=== PATIENT | female | born 2000 | race Caucasian/White ===

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

== ENCOUNTER 2022-11-11 08:40 | Emergency (ER) | payer SELFPAY ==
--- OUTSIDE RECORDS SUMMARY | 2022-11-11 08:49 | XMS REPORT | Continuity of Care Document ---
:2002 Author Organization [facility] t Address [address] [facility] [address] [place] [address] Support Name Relationship Address Phone NOT OBTAINED, None P [address] [id number] [address] [place] [address] NOT OBTAINED Unavailable Unavailable Unavailable NOHELIA MCCALL [address] [place] [id number] Nohelia Mccall Unavailable [address] [facility] [phone] [place] [id number] ignacio Duggan Unavailable [address] [facility] [phone] [place] [phone] Legal Guardian O Created by the Eligibility Depar tment Unavailable PLEASE DO NOT MODIFY Billing Purposes, Nohelia Barber Unavailable Unavailable Chris Vega O [address] Unavailabl e [place] [id number] Jeff Heck V [address] [facility] [address] [phone] [place] [address] Healthcare Proxy O Unavailable Unavailable Legal Guardian O PLEASE DO NOT MODIFY!!!!!!! Unav ailable DO NOT USE Billing Purposes, Legal Guardian O PLEASE DO NOT MODIFY Unavailable PLEASE DO NOT MODIFY Billing Purposes, None1 O Unavailable Unavailable Sylvia Goff O Unavailable Unavailabl e Cheryl Ren O Unavailable Unavailable Yvonne Cook O Unavailable Unavailable Primary Caregiver, None O Unavailable Unavaila ble Legal Guaridan O PLEASE DO NOT MODIFY Unavailable PLEASE DO NOT MODIFY Billing Purposes, Stephy Guillermo O Unavailable Unavailable Billing Purposes, Arnoldo( Primary O [address] Unavailable Caregiver), [place] [address] None O Unavailable Unavailable NEO Ponce O Unavailable Zenaida vailable Bisi Mariza O Unavailable Unavailable Care Team Providers Name Role Phone PHILLY MOBLEY Primary Care Physician Unavailable conor Attending Clinician Unavailable Mary Carmen Gonzales Attending Clinician Unavailable ISA LUNSFORD Attending Clinician Unavailable UNKNOWN, ATTENDING Attending Clinician Unavailable ISA WANG Attending Clinician Unavailable PHILLY MOBLEY Attending Clinician Unavailable Jeff Heck MD Attending Clinician [phone] Lab, Ang - Db Attending Clinician Unavailable Unknown, Attending Attending Clinician Unavailable Tk WILSONP, Gisela Harding Attending Clinician GISELA FREY Attending Clinician Unavailable Leandra WHCNPPhilly Attending Clinician [phone] SANDRA QUIÑONES Attending Clinician Unavailable Isis RUBY, Ese Attending Clinician Unavailable Yossi Rice Attending Clinician Haim VEGA, Orlando Attending Clinician YOSSI WILD Attending Clinician Unavailable Doctor Unassigned, Martorell Attending Clinician Unavailable Maddie Paniagua RN Attending Clinician Unavailable Only, [place] Db Test Attending Clinician Unavailable Isa Wang PA-C Attending Clinician Lab, Adc Fam Pob I Attending Clinician Unavailable Provider, Ang [facility] Attending Clinician Unavailable Luciana Lanier Attending Clinician LUCIANA HAMMOND Attending Clinician Unavailable Naseem VEGA, Radha Attending Clinician RADHA GUSMAN Attending Clinician Unavailable Gerald Cano Attending Clinician GERALD MARIE Attending Clinician Unavailable ROXANNE SAWYER Attending Clinician Unavailable Digna WILSONP, Roxanne Esquivel Attending Clinician SHOLA ARROYO Attending Clinician Unavailable ISA LUNSFORD Attending Clinician Unavailable Anastasia Rodriguez Attending Clinician [phone] Anastasia Rodirguez Attending Clinician [phone] Kristin Richey Attending Clinician Unavailable Jimenez Bahena Attending Clinician Unavailable Tasneem Martínez Attending Clinician Unavailable Joellen Andrade Attending Clinician Unavailable Linnea Espinoza Attending Clinician Unavailable Ese Casarez Attending Clinician Unavailable Adina Zamora Attending Clinician [phone] Kirti Cunha Attending Clinician Unavailable Kell Espinoza Attending Clinician Unavailable Cheryl Albright Attending Clinician Unavailable Joellen Carney Attending Clinician Unavailable Sunita Nicholson Attending Clinician Unavailable Radha Huitron Attending Clinician [phone] Tod Gusman Attending Clinician Unavailable Adina Schuler Attending Clinician Unavailable Vinh MARTINS-Annette Mcdonald Attending Clinician Anastasiia Álvarez Attending Clinician Unavailable Rahel Barrera Attending Clinician Unavailable Fatimah Walker Attending Clinician Unavailable Gladis Quijano Attending Clinician Unavailable Katarzyna May Attending Clinician Unavailable Emily Calwdell Attending Clinician Unavailable Jeff Heck MD Unavailable [phone] Payers Payer Name Policy Type Policy Number Effective Date Expiration Date S ource BCBS OF P [id number] [facility] MED[facility] [id number] 2017 [place] 00:00:00 BCBS OF [facility] [id number] 2021 OUT OF STATE 00:00:00 [facility] [id number] 2017 HEALTH CHOICE 00:00:00 [facility] [id number] 2014 [facility] HEALTH CHOICE 00:00:00 [facility] Problems Condition Condition Condition Status Onset Resolution Last Treating Co mments Source Name Details Category Date Date Treatment Clinician Date GERD GERD Disease Active [place] (gastroeso (gastroeso 1-13 He alth phageal phageal 00:00: reflux reflux 00 disease) disease) Over Over Disease Active [place] weight weight 02-20 Health 00:00: 00 Well woman Well woman Disease Active U T exam exam 02-20 Health 00:00: 00 High risk Condition Active 2020-09-15 Jeannette Heck medication 6-28 15:30:21 Shetal [place] management 00:00: Behavi o 00 [facility] Chronic Chronic Disease Active [place] tonsilliti tonsilliti 5-04 He alth s s 00:00: 00 PANIC Condition Active 2016-072020-09-15 Rangel Heck DISORDER 2-25 15:30:21 [place] 00:00: Behavio 00 ral Health ANXIETY Condition Active 2016-072020-09-15 Jatin Heck ple DISORDER, 09-11 15:30:21 Sheyao [place] UNSPECIFIE 00:00: Behavi o D 00 ral Health DEPRESSIVE Condition Active 2016-072020-09-15 Maria R, [place] DISORDER, 09-11 15:30:21 Jeff [place] MAJOR, 00:00: Behavio RECURRENT 00 ral EPISODE, Health MODERATE [id number] Uses Problem Active Co mmon control [facility] - [facility] [id number] Anxiety Problem Active Common disorder, Spirit unspecifie - [facility] [id number] 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, - [facility] [id number] Menorrhagi Problem Active Co mmon a with Spirit regular - [facility] [id number] Other Problem Active Commo n disturbanc Spirit es of - [facility] smell and [facility] Allergies, Adverse Reactions, Alerts Allergy Allergy Status Severity Reaction(s) Onset Inactive Treating Comm ents Source Name Type Date Date Clinician Pineappl Propensi Active Anaphylaxis U nivers e ty to 8-10 ity of adverse 00:00: [place] reaction 00 Medical s Branch PINEAPPL DRUG Active Anaphylaxis Uni vers E INGREDI 8-10 ity of 00:00: [place] [facility] Other Propensi Active Moderate Cold flu UT ty to 1-12 symptoms Health adverse 00:00: when reaction 00 bitten by s insect Pineappl Propensi Active Swelling [place] e ty to 1-12 Health adverse 00:00: reaction 00 s NO KNOWN Drug Active Univers ALLERGIE Class ity of S [facility] Pineappl Pineappl Active Unknown Commo n e e [facility] - [facility] Milk Milk Active Unknown [facility] Social History Social Habit Start Date Stop Date Quantity Comments Source History of [facility] - Tobacco Use [facility] Sex Assigned At [facility] fercho - [facility] social history 2022-08-05 2022-08-05 Single. Biomom is Leg acy Community E&M 11:21:41 11:21:41 not involvedNot Health homeless. City: [place]. State: [place]. -Primarily lived in [place]-Lives with dad, stepmom, 1 brother, 1 paternal half-brother, 1 paternal iawz-bmpdov-Mtw good rel't w/ siblings Employed. Attends [employer] Graduated 12th grade- Be Zuri hx of repeated grades Attending [facility] [employer] Sex at : Female. Sexual orientation: Bisexual. Gender identity: Female. Not in a relationship Hx of CPS: Pt was removed from biomom's care because of neglect. reading and writing, baking social history 2022-08-05 2022-08-05 reviewed today [facility] reviewed E&M 11:21:41 11:21:41 Health Exposure to 2022-06-19 2022-06-29 Not sure [facility]-CoV-2 00:00:00 08:45:00 [facility] (event) [place] Alcohol Comment 2022-05-25 2022-05-25 on occassion Univers ity of 00:00:00 00:00:00 [facility] Alcohol intake 2022-05-25 2022-05-25 Current drinker of Un iversity of 00:00:00 00:00:00 alcohol (finding) [facility] Tobacco use and 2022-05-09 2022-05-09 Smokeless tobacco Un iversity of exposure 00:00:00 00:00:[address] [facility] home/family 2021-05-19 2021-05-19 -Primarily lived in [facility] [employer] situation, 10:30:23 10:30:23 [place], [place]-Lives Health assessment with aunt and uncle. -Has good rel't w/ siblings time of call 2020-10-15 2020-10-15 10/15/2020 9:23 AM [facility] 09:23:06 09:23:06 Health tobacco use 2020-05-13 2020-05-13 [facility], 10:03:26 10:03:26 Health cigar, chew, pipe) History [facility] 2020-02-21 2020-02-21 1 University o f Alcohol Frequency 00:00:00 00:00:00 [facility] edical [place] History SDNC 2020-02-21 2020-02-21 99 University o f Alcohol Std 00:00:00 00:00:00 [place] Medical Drinks Branch History SDOH 2020-02-21 2020-02-21 1 University o f Alcohol Binge 00:00:00 00:00:00 [place] Medic al Branch albumin, serum 2019-09-25 2019-09-25 4.5 g/dL [facility] 09:38:00 09:38:00 Health social history - 2017-07-06 2017-07-06 Not in a [facility] ommunity sexual practice 10:52:10 10:52:10 relationship Hx of H ealth CPS: Pt was removed from biomom's care because of neglect. family support 2017-07-06 2017-07-06 Biomom is not Legacy 3Guppies 10:52:10 10:52:10 involved Health Smoking Status Start Date Stop Date Source Never smoked tobacco (finding) [facility] Health Unknown if ever smoked [place] [facility] Medications Ordered Filled Start Stop Current Ordering Indication Dosage Frequency Signature Comments Components Source Medication Medication Date Date Medication? Clinician (SIG) Name Name dexAMETHaso 2021-07- No [id number] 12mg Univers ne 08-30- ity of (DECADRON) 17:30: 16:34 [place] tablet 12 00 :00 Medical mg Branch dexAMETHaso 2021-07- No [id number] 12mg 12 mg, Univers ne 08-30- Oral, ity of (DECADRON) 17:30: 16:34 ONCE, 1 Mahendra as tablet 12 00 :00 dose, On Medica l mg [facility] 06/29/22 at 1130, Routine dexAMETHaso 2021-07- No [id number] 12mg Univers ne 08-30- ity of (DECADRON) 17:30: 16:34 [place] tablet 12 00 :00 Medical mg Branch dexAMETHaso 2021-07- No [id number] 12mg 12 mg, Univers ne 08-30-13 Oral, ity of (DECADRON) 17:30: 16:34 ONCE, 1 Mahendra as tablet 12 00 :00 dose, On Medica l mg Tue [place] 06/29/22 at 1130, Routine ibuprofen 2021-07- No [id number] 400mg U nivers (IBU) 08-30 12- ity of tablet 400 17:15: 16:35 [place] mg 00 :00 Medical Branch ibuprofen 2021-07- No [id number] 400mg 400 mg, Univers (IBU) 08-30 Oral, ity of tablet 400 17:15: 16:35 ONCE, 1 Mahendra as mg 00 :00 dose, On [facility] 06/29/22 at 1115, Routine ibuprofen 2021-07- No [id number] 400mg U nivers (IBU) 08-30- ity of tablet 400 17:15: 16:35 [place] mg 00 :00 [facility] ibuprofen 2021-07- No [id number] 400mg 400 mg, Univers (IBU) 08-30 Oral, ity of tablet 400 17:15: 16:35 ONCE, 1 [place] as mg 00 :00 dose, On [facility] 06/29/22 at 1115, Routine (ARIPIPRAZO 2021-07 Yes Shetal 1 Take 1 Ma ple LE) 15 MG 2-01 Heck tablet by Magy albrecht TABS 00:00: mouth once Behavio 00 a day [facility] levonorgest 2021-07 Yes [id number] 1{tbl} Take 1 Univers rel-ethinyl 1-08 tablet by ity of estradiol 00:[place] (SRONYX[place] 00 the Medical 0.1-20 morning. Branch mg-mcg per tablet levonorgest 2021-07 Yes [id number] 1{tbl} Take 1 Univers rel-ethinyl 1-08 tablet by ity of estradiol 00:00[place] (SRONYX[place] 00 the Medical 0.1-20 morning. Branch mg-mcg per tablet levonorgest 2021-07 Yes [id number] 1{tbl} Take 1 Univers rel-ethinyl 1-08 tablet by ity of estradiol 00:00: [place] (SRONYX[place] 00 the Medical 0.1-20 morning. Branch mg-mcg per tablet levonorgest 2021-07 Yes [id number] 1{tbl} Take 1 Univers rel-ethinyl 1-08 tablet by ity of estradiol 00:00: [place] (SRONYX[place] 00 the Medical 0.1-20 morning. Branch mg-mcg per tablet levonorgest 2021-07 Yes [id number] 1{tbl} Take 1 Univers rel-ethinyl 1-08 tablet by ity of estradiol 00:00: [place] (SRONYX[place] 00 the Medical 0.1-20 morning. Branch mg-mcg per tablet levonorgest 2021-07 Yes [id number] 1{tbl} Take 1 Univers rel-ethinyl 1-08 tablet by ity of estradiol 00:00: [place] (SRONYX) 00 the Medical 0.1-20 morning. Branch mg-mcg per tablet levonorgest 2021-07 Yes [id number] 1{tbl} Take 1 Univers rel-ethinyl 1-08 tablet by ity of estradiol 00:00: [place] (SRONYX) 00 the Medical 0.1-20 morning. Branch mg-mcg per tablet FLUoxetine 2021-07 Yes 30mg Take 30 mg U nivers 10 mg 0-23 by mouth. ity of capsule 15:07: [address] FLUoxetine 2021-07 Yes 30mg Take 30 mg U nivers 10 mg 0-23 by mouth. ity of capsule 15:07: [address] FLUoxetine 2021-07 Yes 30mg Take 30 mg U nivers 10 mg 0-23 by mouth. ity of capsule 15:07: [address] FLUoxetine 2021-07 Yes 30mg Take 30 mg U nivers 10 mg 0-23 by mouth. ity of capsule 15:07: [address] FLUoxetine 2021-07 Yes 30mg Take 30 mg U nivers 10 mg 0-23 by mouth. ity of capsule 15:07: [address] FLUoxetine 2021-07 Yes 30mg Take 30 mg U nivers 10 mg 0-23 by mouth. ity of capsule 15:07: [address] FLUoxetine 2021-07 Yes 30mg Take 30 mg U nivers 10 mg 0-23 by mouth. ity of capsule 15:07: [address] FLUoxetine 2021-07 Yes 30mg Take 30 mg U nivers 10 mg 0-23 by mouth. ity of capsule 15:07: [address] FLUoxetine 2021-07 Yes 30mg Take 30 mg U nivers 10 mg 0-23 by mouth. ity of capsule 15:07: [address] FLUoxetine 2021-07 Yes 30mg Take 30 mg U nivers 10 mg 0-23 by mouth. ity of capsule 15:07: [place] 14 Medical Branch bromphenira 2021-07- No [id number] 5mL Take 5 mL Univers mine-pseudo 0-23 10-29 by mouth 4 i ty of ephedrine-D 00:00: 04:59 (four) Mahendra as M 2- 00 :00 times Medical mg/5 mL daily as Branch syrup needed for Congestion /Allergies , Cold symptoms or Cough for up to 5 days. bromphenira 2021-07- No [id number] 5mL Take 5 mL Univers mine-pseudo 0-23 10-29 by mouth 4 i ty of ephedrine-D 00:00: 04:59 (four) Ma[place]dra as M 2- 00 :00 times Medical mg/5 mL daily as Branch syrup needed for Congestion /Allergies , Cold symptoms or Cough for up to 5 days. PROZAC Yes Shetal 1 Take 1 [place] (FLUOXETINE 03-17 Heck MD capsule by [place] HCL) 20 MG 00:00: mouth once B ehavio CAPS 00 a day ral Health (ARIPIPRAZO 2021- No Shetal 1 Take 1 M aple LE) 10 MG 806-17 Heck tablet by Moe morales TABS 00:00: 00:00 mouth once Behavi o 00 :00 a day ral Health WELLBUTRIN Yes Shetal 1 Take 1 Map le XL 8 Maria R BROOKS tablet by [place] (BUPROPION 00:00: mouth once B ehavio HCL) 150 MG 00 a day ral [id number] Health (HYDROXYZIN Yes Shetal 1 Take 1 Ma ple E PAMOATE) 8 Heck capsule by [place] 25 MG CAPS 00:00: mouth Behavi o 00 three ral times a Health day as needed for anxiety norethindro 2020- No Take by Un clare ne-e.estrad 8-04 24- mouth. ity o f iol-iron 18:35: 00:00 [place] (LO 51 :00 Medical LOESTRIN FE Branch ORAL) norethindro 2020- No Take by Un clare ne-e.estrad 8-10 08-10 mouth. ity o f iol-iron 18:35: 00:00 [place] (LO 51 :00 Medical LOESTRIN FE Branch ORAL) norethindro 2020-0 2020- No Take by Un clare ne-e.estrad 8-10 08-10 mouth. ity o f iol-iron 18:35: 00:00 [place] (LO 51 :00 Medical LOESTRIN FE Branch ORAL) norethindro 2020-0 Yes [id number] 1{tbl} Take 1 Univers ne-e.estrad 8-10 tablet by ity of ioL-iron 00:00: mouth [place] (LO 00 daily. Medical LOESTRIN Branch FE) 1 mg-10 mcg (24)/10 mcg (2) per tablet norethindro 2020-0 Yes [id number] 1{tbl} Take 1 Univers ne-e.estrad 8-10 tablet by ity of ioL-iron 00:00: mouth [place] (LO 00 daily. Medical LOESTRIN Branch FE) 1 mg-10 mcg (24)/10 mcg (2) per tablet norethindro 2020-0 Yes [id number] 1{tbl} Take 1 Univers ne-e.estrad 8-10 tablet by ity of ioL-iron 00:00: mouth [place] (LO 00 daily. Medical LOESTRIN Branch FE) 1 mg-10 mcg (24)/10 mcg (2) per tablet norethindro 2020-0 Yes [id number] 1{tbl} Take 1 Univers ne-e.estrad 8-10 tablet by ity of ioL-iron 00:00: mouth [place] (LO 00 daily. Medical LOESTRIN Branch FE) 1 mg-10 mcg (24)/10 mcg (2) per tablet norethindro 2020-0 Yes [id number] 1{tbl} Take 1 Univers ne-e.estrad 8-10 tablet by ity of ioL-iron 00:00: mouth [place] (LO 00 daily. Medical LOESTRIN Branch FE) 1 mg-10 mcg (24)/10 mcg (2) per tablet norethindro 2020-0 Yes [id number] 1{tbl} Take 1 Univers ne-e.estrad 8-10 tablet by ity of ioL-iron 00:00: mouth [place] (LO 00 daily. Medical LOESTRIN Branch FE) 1 mg-10 mcg (24)/10 mcg (2) per tablet norethindro 2021-0 Yes [id number] 1{tbl} Take 1 Univers ne-e.estrad 8-10 tablet by ity of ioL-iron 00:00: mouth [place] (LO 00 daily. [facility] LOESTRIN [facility]) 1 mg-10 mcg (24)/10 mcg (2) per tablet norethindro 2021-0 Yes [id number] 1{tbl} Take 1 Univers ne-e.estrad 8-10 tablet by ity of ioL-iron 00:00: mouth [place] (LO 00 daily. [facility] LOESTRIN [facility]) 1 mg-10 mcg (24)/10 mcg (2) per tablet norethindro 2021-0 Yes [id number] 1{tbl} Take 1 Univers ne-e.estrad 8-10 tablet by ity of ioL-iron 00:00: mouth [place] (LO 00 daily. [facility] LOESTRIN [facility]) 1 mg-10 mcg (24)/10 mcg (2) per tablet norethindro 2021-0 Yes [id number] 1{tbl} Take 1 Univers ne-e.estrad 8-10 tablet by ity of ioL-iron 00:00: mouth [place] (LO 00 daily. [facility] LOESTRIN [facility]) 1 mg-10 mcg (24)/10 mcg (2) per tablet norethindro 2021-0 Yes [id number] 1{tbl} Take 1 Univers ne-e.estrad 8-10 tablet by ity of ioL-iron 00:00: mouth [place] (LO 00 daily. [facility] LOESTRIN [facility]) 1 mg-10 mcg (24)/10 mcg (2) per tablet norethindro 2021-0 Yes [id number] 1{tbl} Take 1 Univers ne-e.estrad 8-10 tablet by ity of ioL-iron 00:00: mouth [place] (LO 00 daily. [facility] LOESTRIN [facility]) 1 mg-10 mcg (24)/10 mcg (2) per tablet norethindro 2021-0 Yes [id number] 1{tbl} Take 1 Univers ne-e.estrad 8-10 tablet by ity of ioL-iron 00:00: mouth [place] (LO 00 daily. [facility] LOESTRIN Branch FE) 1 mg-10 mcg (24)/10 mcg (2) per tablet norethindro 2021-0 Yes [id number] 1{tbl} Take 1 Univers ne-e.estrad 8-10 tablet by ity of ioL-iron 00:00: mouth [place] (LO 00 daily. Medical LOESTRIN Branch FE) 1 mg-10 mcg (24)/10 mcg (2) per tablet norethindro 2021-0 Yes [id number] 1{tbl} Take 1 Univers ne-e.estrad 8-10 tablet by ity of ioL-iron 00:00: mouth [place] (LO 00 daily. Medical LOESTRIN Branch FE) 1 mg-10 mcg (24)/10 mcg (2) per tablet norethindro 2021-0 Yes [id number] 1{tbl} Take 1 Univers ne-e.estrad 8-10 tablet by ity of ioL-iron 00:00: mouth [place] (LO 00 daily. Medical LOESTRIN Branch FE) 1 mg-10 mcg (24)/10 mcg (2) per tablet norethindro 1-0 Yes [id number] 1{tbl} Take 1 Univers ne-e.estrad 8-10 tablet by ity of ioL-iron 00:00: mouth [place] (LO 00 daily. Medical LOESTRIN Branch FE) 1 mg-10 mcg (24)/10 mcg (2) per tablet LO LOESTRIN 2020-0 Yes [id number] TAKE ONE Univers FE 1 mg-10 7-29 (1) ity of mcg (24)/10 00:00: TABLET(S) [place] mcg (2) per 00 BY MOUTH Medi araseli tablet ONCE A Branch DAY. LO LOESTRIN 2020-0 Yes [id number] TAKE ONE Univers FE 1 mg-10 7-29 (1) ity of mcg (24)/10 00:00: TABLET(S) [place] mcg (2) per 00 BY MOUTH Medi araseli tablet ONCE A Branch DAY. LO LOESTRIN 2020-0 Yes [id number] TAKE ONE Univers FE 1 mg-10 7-29 (1) ity of mcg (24)/10 00:00: TABLET(S) [place] mcg (2) per 00 BY MOUTH Medi araseli tablet ONCE A Branch DAY. LO LOESTRIN 2020- No [id number] TAKE ONE Univers FE 1 mg-10 7- 08-10 (1) ity of mcg (24)/10 00:00: 00:00 TABLET(S) [place] mcg (2) per 00 :00 BY MOUTH Medi araseli tablet ONCE A Branch DAY. LO LOESTRIN 2020- No [id number] TAKE ONE Univers FE 1 mg-10 - 08-10 (1) ity of mcg (24)/10 00:00: 00:00 TABLET(S) [place] mcg (2) per 00 :00 BY MOUTH Medi araseli tablet ONCE A Branch DAY. LO LOESTRIN 2020- No [id number] TAKE ONE Univers FE 1 mg-10 02-1210 (1) ity of mcg (24)/10 00:00: 00:00 TABLET(S) [place] mcg (2) per 00 :00 BY MOUTH Medi araseli tablet ONCE A Branch DAY. benzonatate 2020-0 Yes [id number] 100mg Take 1 Univers (TESSALON 7-07 capsule by ity of PERLES) 100 00:00: mouth 3 Mahendra as mg capsule 00 (three) Medica l times Branch daily. benzonatate 2020-0 Yes [id number] 100mg Take 1 Univers (TESSALON 7-07 capsule by ity of PERLES) 100 00:00: mouth 3 [place] as mg capsule 00 (three) Medica l times Branch daily. benzonatate 2020-0 Yes [id number] 100mg Take 1 Univers (TESSALON 7-07 capsule by ity of PERLES) 100 00:00: mouth 3 [place] as mg capsule 00 (three) Medica l times Branch daily. benzonatate 2020-0 Yes [id number] 100mg Take 1 Univers (TESSALON 7-07 capsule by ity of PERLES) 100 00:00: mouth 3 [place] as mg capsule 00 (three) Medica l times Branch daily. benzonatate 2020-0 Yes [id number] 100mg Take 1 Univers (TESSALON 7-07 capsule by ity of PERLES) 100 00:00: mouth 3 [place] as mg capsule 00 (three) Medica l times Branch daily. benzonatate 2020-0 Yes [id number] 100mg Take 1 Univers (TESSALON 7-07 capsule by itSilvia) 100 00:00: mouth 3 [place] as mg capsule 00 (three) Medica l times Branch daily. benzonatate 2020-2020- No [id number] 100mg Take 1 Univers (TESSALON 7-07 08-10 capsule by tiffanie CEFERINO) 100 00:00: 00:00 mouth 3 [place] mg capsule 00 :00 (three) Medica l times Branch daily. benzonatate 2020- No [id number] 100mg Take 1 Univers (TESSALON 7-07 08-10 capsule by itvashti CEFERINO) 100 00:00: 00:00 mouth 3 [place] mg capsule 00 :00 (three) Medica l times Branch daily. benzonatate 2020- No [id number] 100mg Take 1 Univers (TESSALON 7-07 08-10 capsule by itvashti CEFERINO) 100 00:00: 00:00 mouth 3 [place] mg capsule 00 :00 (three) Medica l times Branch daily. methylPREDN 2020-0 Yes [id number] 84mg Take 21 Univers ISolone 5-19 tablets by ity of (MEDROL, 00:00: mouth [place] BECKI,) 4 mg 00 SEE-INSTRU Med ical tablets CTIONS. Branch follow package directions methylPREDN 2020-0 Yes [id number] 84mg Take 21 Univers ISolone 5-19 tablets by ity of (MEDROL, 00:00: mouth [place] BECKI,) 4 mg 00 SEE-INSTRU Med ical tablets CTIONS. Branch follow package directions methylPREDN 2020-0 Yes [id number] 84mg Take 21 Univers ISolone 5-19 tablets by ity of (MEDROL, 00:00: mouth [place] BECKI,) 4 mg 00 SEE-INSTRU Med ical tablets CTIONS. Branch follow package directions methylPREDN 2020-0 Yes [id number] 84mg Take 21 Univers ISolone 5-19 tablets by ity of (MEDROL, 00:00: mouth [place] BECKI,) 4 mg 00 SEE-INSTRU Med ical tablets CTIONS. Branch follow package directions methylPREDN 1-0 Yes [id number] 84mg Take 21 Univers ISolone 5-19 tablets by ity of (MEDROL, 00:00: mouth [place] BECKI,) 4 mg 00 SEE-INSTRU Med ical tablets CTIONS. Branch follow package directions methylPREDN 2021-0 Yes [id number] 84mg Take 21 Univers ISolone 5-19 tablets by ity of (MEDROL, 00:00: mouth [place] BECKI,) 4 mg 00 SEE-INSTRU Med ical tablets CTIONS. Branch follow package directions methylPREDN 2021-0 Yes [id number] 84mg Take 21 Univers ISolone 5-19 tablets by ity of (MEDROL, 00:00: mouth [place] BECKI,) 4 mg 00 SEE-INSTRU Med ical tablets CTIONS. Branch follow package directions methylPREDN 2021-0 Yes [id number] 84mg Take 21 Univers ISolone 5-19 tablets by ity of (MEDROL, 00:00: mouth [place] BECKI,) 4 mg 00 SEE-INSTRU Med ical tablets CTIONS. Branch follow package directions methylPREDN 2021-0 Yes [id number] 84mg Take 21 [facility] ISolone 5-19 tablets by ity of (MEDROL, 00:00: mouth [place] BECKI,) 4 mg 00 SEE-INSTRU Med ical tablets CTIONS. Branch follow package directions methylPREDN 1-0 Yes [id number] 84mg Take 21 [facility] ISolone 5-19 tablets by ity of (MEDROL, 00:00: mouth [place] BECKI,) 4 mg 00 SEE-INSTRU Med ical tablets CTIONS. Branch follow package directions methylPREDN 2021-0 Yes [id number] 84mg Take 21 [facility] ISolone 5-19 tablets by ity of (MEDROL, 00:00: mouth [place] BECKI,) 4 mg 00 SEE-INSTRU Med ical tablets CTIONS. Branch follow package directions methylPREDN 2021-0 Yes [id number] 84mg Take 21 [facility] ISolone 5-19 tablets by ity of (MEDROL, 00:00: mouth [place] BECKI,) 4 mg 00 SEE-INSTRU Med ical tablets CTIONS. Branch follow package directions methylPREDN 2021-0 Yes [id number] 84mg Take 21 [facility] ISolone 5-19 tablets by ity of (MEDROL, 00:00: mouth [place] BECKI,) 4 mg 00 SEE-INSTRU Med ical tablets CTIONS. Branch follow package directions methylPREDN 2021-0 Yes [id number] 84mg Take 21 [facility] ISolone 5-19 tablets by ity of (MEDROL, 00:00: mouth [place] BECKI,) 4 mg 00 SEE-INSTRU Med ical tablets CTIONS. Branch follow package directions methylPREDN 2020-0 Yes [id number] 84mg Take 21 [facility] ISolone 5-19 tablets by ity of (MEDROL, 00:00: mouth [place] BECKI,) 4 mg 00 SEE-INSTRU Med ical tablets CTIONS. Branch follow package directions methylPREDN Yes [id number] 84mg Take 21 [facility] ISolone 5-19 tablets by ity of (MEDROL, 00:00: mouth [place] BECKI,) 4 mg 00 SEE-INSTRU Med ical tablets CTIONS. Branch follow package directions methylPREDN Yes [id number] 84mg Take 21 [facility] ISolone 5-19 tablets by ity of (MEDROL, 00:00: mouth [place] BECKI,) 4 mg 00 SEE-INSTRU Med ical tablets CTIONS. Branch follow package directions methylPREDN 2020- No [id number] 84mg Take 21 [facility] ISolone 5-19 08-10 tablets by ity o f (MEDROL, 00:00: 00:00 mouth [place] BECKI,) 4 mg 00 :00 SEE-INSTRU Med ical tablets CTIONS. Branch follow package directions methylPREDN 2020-0 2020- No [id number] 84mg Take 21 [facility] ISolone 5-19 08-10 tablets by ity o f (MEDROL, 00:00: 00:00 mouth [place] BECKI,) 4 mg 00 :00 SEE-INSTRU Med ical tablets CTIONS. Branch follow package directions methylPREDN 2020- No [id number] 84mg Take 21 [facility] ISolone 5-19 08-10 tablets by ity o f (MEDROL, 00:00: 00:00 mouth [place] BECKI,) 4 mg 00 :00 SEE-INSTRU Med ical tablets CTIONS. Branch follow package directions FLUoxetine Yes 30mg QD Take 30 mg U T (PROzac) 10 5-12 by mouth 1 He alth MG capsule 17:32: (one) time 27 each day. Biotin 10 Yes [id number] Take [place] MG capsule 5-12 10,000 mg Heal th 16:37: by mouth. 39 cyanocobala Yes 1000ug QD Take 1,000 [facility] min 5-12 mcg by Health (Vitamin 16:37: mouth 1 B-12) 1000 39 (one) time MCG tablet each day. fexofenadin Yes 180mg QD Take 180 U T e (Kyleigh) 5-12 mg by Health 180 MG 16:37: mouth 1 tablet 39 (one) time each day. Wheat 0 Yes Chew. [place] Dextrin 5-12 Health (Benefiber) 16:37: chewable 39 tablet ARIPiprazol Yes 10mg QD Take 10 mg [place] e (Abilify) 5-12 by mouth 1 He alth 10 MG 15:40: (one) time tablet 45 each day. NORETHINDRO Yes Take by [place] ACETATE 5-12 mouth. Health PO 15:40: 44 buPROPion Yes TAKE ONE Univ ers XL 300 mg 5-06 (1) ity of 24 hr 00:00: TABLET(S) [place] tablet 00 BY MOUTH Medical ONCE A Branch DAY. buPROPion Yes TAKE ONE Univ ers XL 300 mg 5-06 (1) ity of 24 hr 00:00: TABLET(S) [place] tablet 00 BY MOUTH Medical ONCE A Branch DAY. buPROPion Yes TAKE ONE Univ ers XL 300 mg 5-06 (1) ity of 24 hr 00:00: TABLET(S) [place] tablet 00 BY MOUTH Medical ONCE A Branch DAY. buPROPion Yes TAKE ONE Univ ers XL 300 mg 5-06 (1) ity of 24 hr 00:00: TABLET(S) [place] tablet 00 BY MOUTH Medical ONCE A Branch DAY. buPROPion Yes TAKE ONE Univ ers XL 300 mg 5-06 (1) ity of 24 hr 00:00: TABLET(S) [place] tablet 00 BY MOUTH Medical ONCE A Branch DAY. buPROPion Yes TAKE ONE Univ ers XL 300 mg 5-06 (1) ity of 24 hr 00:00: TABLET(S) [place] tablet 00 BY MOUTH Medical ONCE A Branch DAY. buPROPion 0 Yes TAKE ONE [facility] ers XL 300 mg 5-06 (1) ity of 24 hr 00:00: TABLET(S) [place] tablet 00 BY MOUTH Medical ONCE A Branch DAY. buPROPion Yes TAKE ONE Univ ers XL 300 mg 5-06 (1) ity of 24 hr 00:00: TABLET(S) [place] tablet 00 BY MOUTH Medical ONCE A Branch DAY. buPROPion 2020-0 Yes TAKE ONE Univ ers XL 300 mg 5-06 (1) ity of 24 hr 00:00: TABLET(S) [place] tablet 00 BY MOUTH Medical ONCE A Branch DAY. buPROPion 2020-0 Yes TAKE ONE Univ ers XL 300 mg 5-06 (1) ity of 24 hr 00:00: TABLET(S) [place] tablet 00 BY MOUTH Medical ONCE A Branch DAY. buPROPion 2020-0 Yes TAKE ONE Univ ers XL 300 mg 5-06 (1) ity of 24 hr 00:00: TABLET(S) [place] tablet 00 BY MOUTH Medical ONCE A Branch DAY. buPROPion 2020-0 Yes TAKE ONE Univ ers XL 300 mg 5-06 (1) ity of 24 hr 00:00: TABLET(S) [place] tablet 00 BY MOUTH Medical ONCE A Branch DAY. buPROPion 2020-0 Yes TAKE ONE Univ ers XL 300 mg 5-06 (1) ity of 24 hr 00:00: TABLET(S) [place] tablet 00 BY MOUTH Medical ONCE A Branch DAY. buPROPion 2020-0 Yes TAKE ONE Univ ers XL 300 mg 5-06 (1) ity of 24 hr 00:00: TABLET(S) [place] tablet 00 BY MOUTH Medical ONCE A Branch DAY. buPROPion 2020-0 Yes TAKE ONE [facility] ers XL 300 mg 5-06 (1) ity of 24 hr 00:00: TABLET(S) [place] tablet 00 BY MOUTH Medical ONCE A Branch DAY. buPROPion 2020-0 Yes TAKE ONE [facility] ers XL 300 mg 5-06 (1) ity of 24 hr 00:00: TABLET(S) [place] tablet 00 BY MOUTH Medical ONCE A Branch DAY. buPROPion 2020-0 Yes TAKE ONE [facility] ers XL 300 mg 5-06 (1) ity of 24 hr 00:00: TABLET(S) [place] tablet 00 BY MOUTH Medical ONCE A Branch DAY. buPROPion 2020-0 Yes TAKE ONE [facility] ers XL 300 mg 5-06 (1) ity of 24 hr 00:00: TABLET(S) [place] tablet 00 BY MOUTH Medical ONCE A Branch DAY. buPROPion 2020-0 Yes TAKE ONE Univ ers XL 300 mg 5-06 (1) ity of 24 hr 00:00: TABLET(S) [place] tablet 00 BY MOUTH Medical ONCE A Branch DAY. buPROPion Yes TAKE ONE Univ ers XL 300 mg 5-06 (1) ity of 24 hr 00:00: TABLET(S) [place] tablet 00 BY MOUTH Medical ONCE A Branch DAY. buPROPion Yes TAKE ONE [facility] ers XL 300 mg 5-06 (1) ity of 24 hr 00:00: TABLET(S) [place] tablet 00 BY MOUTH Medical ONCE A Branch DAY. buPROPion Yes TAKE ONE [facility] ers XL 300 mg 5-06 (1) ity of 24 hr 00:00: TABLET(S) [place] tablet 00 BY MOUTH Medical ONCE A Branch DAY. buPROPion Yes TAKE ONE Univ ers XL 300 mg 5-06 (1) ity of 24 hr 00:00: TABLET(S) [place] tablet 00 BY MOUTH Medical ONCE A Branch DAY. Diclofenac Diclofenac No 1{table BID Diclofenac Potassium Potassium 11-20 t_with_ Potassium 50 MG 50 MG 00:00: food_or 50 MG 00 _milk} Diclofenac Diclofenac No 1{table BID Diclofenac Potassium Potassium -06 t_with_ Potassium 50 MG 50 MG 00:00: food_or 50 MG 00 _milk} Diclofenac Diclofenac No 1{table BID Diclofenac Potassium Potassium 5-06 t_with_ Potassium 50 MG 50 MG 00:00: food_or 50 MG 00 _milk} ARIPiprazol Yes TAKE ONE [facility] e (Abilify) 11-20 (1) Health 15 MG 00:00: TABLET(S) tablet 00 BY MOUTH ONCE A DAY. buPROPion Yes TAKE ONE [facility] XL 11-20 (1) Health (Wellbutrin 00:00: TABLET(S) XL) 300 MG 00 BY MOUTH 24 hr ONCE A tablet DAY. diclofenac Yes TAKE ONE UT (Cataflam) 06 (1) Health 50 MG 00:00: TABLET(S) tablet 00 BY MOUTH TWICE A DAY WITH FOOD OR MILK. FLUoxetine 2020- No TAKE ONE [facility] (PROzac) 10 11-20 05-12 (1) Health MG capsule 00:00: 00:00 CAPSULE(S) 00 :00 BY MOUTH ONCE A DAY. FLUoxetine 2020- No TAKE THREE UT (PROzac) 20 5-06 05-12 (3) Health MG capsule 00:00: 00:00 TABLET(S) 00 :00 BY MOUTH DAILY. omeprazole Yes TAKE ONE UT (PriLOSEC) 4-26 (1) Health [address] 00:00: CAPSULE(S) capsule 00 BY MOUTH ONCE A DAY. Lo Loestrin Yes TAKE ONE UT Fe 1 MG-10 4-22 (1) Health MCG / 10 00:00: TABLET(S) MCG tablet 00 BY MOUTH ONCE A DAY. sucralfate Yes TAKE TEN UT (Carafate) 4-13 (10) MLS Healt h 1 GM/10ML 00:00: BY MOUTH suspension 00 EVERY 12 HOURS. hydrOXYzine Yes TAKE ONE UT pamoate 2-04 (1) Health (Vistaril) 00:00: CAPSULE(S) 25 MG 00 BY MOUTH capsule AT BEDTIME. (HYDROXYZIN 2020- No [place] 1 Take 1 M aple E PAMOATE) 2 08-11 Heck capsule by Magy dgpennie 25 MG CAPS 00:00: 00:00 mouth Behav io 00 :00 every ral night Health hydrOXYzine Yes TAKE ONE UT HCl 1-29 (1) Health (Atarax) 10 00:00: TABLET(S) MG tablet 00 BY MOUTH TWICE A DAY NEEDED FOR ANXIETY. (ARIPIPRAZO 2019-07 No [place] 1 Take 1 M aple LE) 15 MG 08-10 [place] tablet by [place] e TABS 00:00: 00:00 mouth once Behavi o 00 :00 a day ral Health WELLBUTRIN 2019-07- No [place] 1 Take 1 Ma ple XL 08-08 Heck tablet by [place] (BUPROPION 00:00: 00:00 mouth once Behavio HCL) 300 MG 00 :00 a day ral [id number] Health PROZAC 2019-07 No [place] 1 1xD 1 By Mouth Ma ple (FLUOXETINE 06-08 Heck MD daily Rid ge HCL) 10 MG 00:00: 00:00 Behavi o CAPS 00 :00 ral [facility] Pantoprazol Pantoprazol 2020-0 Yes Mary Carmen 1 tablet Common e Sodium e Sodium 03-17 [place] [facility] 00:00: - [facility] 00 [facility] norethindro 2020-0 Yes Take by Uni vers ne-e.estrad 8- mouth. ity of iol-iron 20:45: [place] (LO 28 Medical LOESTRIN FE Branch ORAL) norethindro 2020-0 Yes Take by Uni vers ne-e.estrad 8- mouth. ity of iol-iron 20:45: [place] (LO 28 Medical LOESTRIN FE Branch ORAL) norethindro 2020-0 Yes Take by Uni vers ne-e.estrad 8- mouth. ity of iol-iron 20:45: [place] (LO 28 Medical LOESTRIN FE Branch ORAL) norethindro 2020-0 Yes Take by Uni vers ne-e.estrad 8- mouth. ity of iol-iron 20:45: [place] (LO 28 Medical LOESTRIN FE Branch ORAL) norethindro 2020-0 Yes Take by Uni vers ne-e.estrad 8- mouth. ity of iol-iron 20:45: [place] (LO 28 Medical LOESTRIN FE Branch ORAL) norethindro 2020-0 Yes Take by Uni vers ne-e.estrad 8- mouth. ity of iol-iron 20:45: [place] (LO 28 Medical LOESTRIN FE Branch ORAL) norethindro 2020-0 Yes Take by Uni vers ne-e.estrad 02-20 mouth. ity of iol-iron 20:45: [place] (LO 28 Medical LOESTRIN FE Branch ORAL) norethindro 2020-0 Yes Take by Uni vers ne-e.estrad 8- mouth. ity of iol-iron 20:45: [place] (LO 28 Medical LOESTRIN FE Branch ORAL) norethindro 2020-0 Yes Take by Uni vers ne-e.estrad 8- mouth. ity of iol-iron 20:45: [place] (LO 28 Medical LOESTRIN FE Branch ORAL) norethindro 2020-0 Yes Take by Uni vers ne-e.estrad 8 mouth. ity of iol-iron 20:45: [place] (LO 28 Medical LOESTRIN FE Branch ORAL) norethindro 2020-0 Yes Take by Uni vers ne-e.estrad 8- mouth. ity of iol-iron 20:45: [place] (LO 28 Medical LOESTRIN FE Branch ORAL) norethindro 2020-0 Yes Take by Uni vers ne-e.estrad 02-20 mouth. ity of iol-iron 20:45: [place] (LO 28 Medical LOESTRIN FE Branch ORAL) norethindro 2020-0 Yes Take by Uni vers ne-e.estrad 8 mouth. ity of iol-iron 20:45: [place] (LO 28 Medical LOESTRIN FE Branch ORAL) norethindro 2020-0 Yes Take by Uni vers ne-e.estrad 02-20 mouth. ity of iol-iron 20:45: [place] (LO 28 Medical LOESTRIN FE Branch ORAL) norethindro 2020-0 Yes Take by Uni vers ne-e.estrad 02-20 mouth. ity of iol-iron 20:45: [place] (LO 28 Medical LOESTRIN FE Branch ORAL) norethindro 2020-0 Yes Take by Uni vers ne-e.estrad 02-20 mouth. ity of iol-iron 20:45: [place] (LO 28 Medical LOESTRIN FE Branch ORAL) norethindro 2020-0 Yes Take by Uni vers ne-e.estrad 02-20 mouth. ity of iol-iron 20:45: [place] (LO 28 Medical LOESTRIN FE Branch ORAL) norethindro 2020-0 Yes Take by Uni vers ne-e.estrad 02-20 mouth. ity of iol-iron 20:45: [place] (LO 28 Medical LOESTRIN FE Branch ORAL) norethindro 2020-0 Yes Take by Uni vers ne-e.estrad 02-20 mouth. ity of iol-iron 20:45: [place] (LO 28 Medical LOESTRIN FE Branch ORAL) norethindro 2020-0 Yes Take by Uni vers ne-e.estrad 02-20 mouth. ity of iol-iron 20:45: [place] (LO 28 Medical LOESTRIN FE Branch ORAL) norethindro 2020-0 Yes Take by Uni vers ne-e.estrad 02-20 mouth. ity of iol-iron 20:45: [place] (LO 28 Medical LOESTRIN FE Branch ORAL) norethindro 2020-0 Yes Take by Uni vers ne-e.estrad 02-20 mouth. ity of iol-iron 20:45: [place] (LO 28 Medical LOESTRIN FE Branch ORAL) norethindro 2020-0 Yes Take by Uni vers ne-e.estrad 8- mouth. ity of iol-iron 20:45: [place] (LO 28 Medical LOESTRIN FE Branch ORAL) norethindro 2020-0 2020- No Take by Un clare ne-e.estrad 02-20 08- mouth. ity o f iol-iron 20:44: 00:00 [place] (LO 42 :00 Medical LOESTRIN FE Branch ORAL) norethindro 2020-0 2020- No Take by Un clare ne-e.estrad 02-20- mouth. ity o f iol-iron 20:44: 00:00 [place] (LO 42 :00 Medical LOESTRIN FE Branch ORAL) norethindro 2020-0 2020- No Take by Un clare ne-e.estrad 02-20- mouth. ity o f iol-iron 20:44: 00:00 [place] (LO 42 :00 Medical LOESTRIN FE Branch ORAL) norethindro 2020-0 2020- No Take by Un lcare ne-e.estrad 02-20- mouth. ity o f iol-iron 20:44: 00:00 [place] (LO 42 :00 Medical LOESTRIN FE Branch ORAL) norethindro 2020-0 Yes [id number] 1{tbl} Take 1 Univers ne-e.estrad 8-06 tablet by ity of iol-iron 00:00: mouth [place] (LO 00 daily. Medical LOESTRIN Branch FE) 1 mg-10 mcg (24)/10 mcg (2) per tablet norethindro 2020-0 Yes [id number] 1{tbl} Take 1 Univers ne-e.estrad 8-06 tablet by ity of iol-iron 00:00: mouth [place] (LO 00 daily. Medical LOESTRIN Branch FE) 1 mg-10 mcg (24)/10 mcg (2) per tablet norethindro 2020-0 Yes [id number] 1{tbl} Take 1 Univers ne-e.estrad 8-06 tablet by ity of iol-iron 00:00: mouth [place] (LO 00 daily. Medical LOESTRIN Branch FE) 1 mg-10 mcg (24)/10 mcg (2) per tablet norethindro 2020-0 Yes [id number] 1{tbl} Take 1 Univers ne-e.estrad 8-06 tablet by ity of iol-iron 00:00: mouth [place] (LO 00 daily. Medical LOESTRIN Branch FE) 1 mg-10 mcg (24)/10 mcg (2) per tablet norethindro 2020-0 Yes [id number] 1{tbl} Take 1 Univers ne-e.estrad 8-06 tablet by ity of iol-iron 00:00: mouth [place] (LO 00 daily. Medical LOESTRIN Branch FE) 1 mg-10 mcg (24)/10 mcg (2) per tablet norethindro 2020-0 Yes [id number] 1{tbl} Take 1 Univers ne-e.estrad 8-06 tablet by ity of iol-iron 00:00: mouth [place] (LO 00 daily. Medical LOESTRIN Branch FE) 1 mg-10 mcg (24)/10 mcg (2) per tablet norethindro 2020-0 Yes [id number] 1{tbl} Take 1 Univers ne-e.estrad 8-06 tablet by ity of iol-iron 00:00: mouth [place] (LO 00 daily. Medical LOESTRIN Branch FE) 1 mg-10 mcg (24)/10 mcg (2) per tablet norethindro 2020-0 Yes [id number] 1{tbl} Take 1 Univers ne-e.estrad 8-06 tablet by ity of iol-iron 00:00: mouth [place] (LO 00 daily. Medical LOESTRIN Branch FE) 1 mg-10 mcg (24)/10 mcg (2) per tablet norethindro 2020-0 Yes [id number] 1{tbl} Take 1 Univers ne-e.estrad 8-06 tablet by ity of iol-iron 00:00: mouth [place] (LO 00 daily. Medical LOESTRIN Branch FE) 1 mg-10 mcg (24)/10 mcg (2) per tablet norethindro 2020-0 Yes [id number] 1{tbl} Take 1 Univers ne-e.estrad 8-06 tablet by ity of iol-iron 00:00: mouth [place] (LO 00 daily. Medical LOESTRIN Branch FE) 1 mg-10 mcg (24)/10 mcg (2) per tablet norethindro 2020-0 Yes [id number] 1{tbl} Take 1 Univers ne-e.estrad 8-06 tablet by ity of iol-iron 00:00: mouth [place] (LO 00 daily. Medical LOESTRIN Branch FE) 1 mg-10 mcg (24)/10 mcg (2) per tablet norethindro 2020-0 Yes [id number] 1{tbl} Take 1 Univers ne-e.estrad 8-06 tablet by ity of iol-iron 00:00: mouth [place] (LO 00 daily. Medical LOESTRIN Branch FE) 1 mg-10 mcg (24)/10 mcg (2) per tablet norethindro 2020-0 Yes [id number] 1{tbl} Take 1 Univers ne-e.estrad 8-06 tablet by ity of iol-iron 00:00: mouth [place] (LO 00 daily. Medical LOESTRIN Branch FE) 1 mg-10 mcg (24)/10 mcg (2) per tablet norethindro 2020-0 Yes [id number] 1{tbl} Take 1 Univers ne-e.estrad 8-06 tablet by ity of iol-iron 00:00: mouth [place] (LO 00 daily. Medical LOESTRIN Branch FE) 1 mg-10 mcg (24)/10 mcg (2) per tablet norethindro 2020-0 Yes [id number] 1{tbl} Take 1 Univers ne-e.estrad 8-06 tablet by ity of iol-iron 00:00: mouth [place] (LO 00 daily. Medical LOESTRIN Branch FE) 1 mg-10 mcg (24)/10 mcg (2) per tablet norethindro 2020-0 Yes [id number] 1{tbl} Take 1 Univers ne-e.estrad 8-06 tablet by ity of iol-iron 00:00: mouth [place] (LO 00 daily. Medical LOESTRIN Branch FE) 1 mg-10 mcg (24)/10 mcg (2) per tablet norethindro 2020-0 Yes [id number] 1{tbl} Take 1 Univers ne-e.estrad 8-06 tablet by ity of iol-iron 00:00: mouth [place] (LO 00 daily. Medical LOESTRIN Branch FE) 1 mg-10 mcg (24)/10 mcg (2) per tablet norethindro 2020-0 Yes [id number] 1{tbl} Take 1 Univers ne-e.estrad 8-06 tablet by ity of iol-iron 00:00: mouth [place] (LO 00 daily. Medical LOESTRIN [facility]) 1 mg-10 mcg (24)/10 mcg (2) per tablet norethindro 2020-0 Yes [id number] 1{tbl} Take 1 Univers ne-e.estrad 8-06 tablet by ity of iol-iron 00:00: mouth [place] (LO 00 daily. [facility] LOESTRIN [facility]) 1 mg-10 mcg (24)/10 mcg (2) per tablet norethindro 2020-0 Yes [id number] 1{tbl} Take 1 Univers ne-e.estrad 8-06 tablet by ity of iol-iron 00:00: mouth [place] (LO 00 daily. [facility] LOESTRIN [facility]) 1 mg-10 mcg (24)/10 mcg (2) per tablet norethindro 2020-0 2020- No [id number] 1{tbl} Take 1 Univers ne-e.estrad 8-06 -29 tablet by it y of iol-iron 00:00: 00:00 mouth [place] (LO 00 :00 daily. [facility] LOESTRIN [facility]) 1 mg-10 mcg (24)/10 mcg (2) per tablet FLUoxetine 2020-0 Yes TAKE THREE U nivers 20 mg 8-03 (3) ity of capsule 00:00: CAPSULE(S) [place] 00 BY MOUTH Medical DAILY. Branch FLUoxetine 2020-0 Yes TAKE TWO Uni vers 40 mg 8-03 (2) ity of capsule 00:00: CAPSULE(S) [place] 00 BY MOUTH Medical ONCE A Branch DAY. FLUoxetine 2020-0 Yes TAKE THREE U nivers 20 mg 8-03 (3) ity of capsule 00:00: CAPSULE(S) [place] 00 BY MOUTH Medical DAILY. Branch FLUoxetine 2020-0 Yes TAKE TWO Uni vers 40 mg 8-03 (2) ity of capsule 00:00: CAPSULE(S) [place] 00 BY MOUTH Medical ONCE A Branch DAY. FLUoxetine 2020-0 Yes TAKE THREE U nivers 20 mg 8-03 (3) ity of capsule 00:00: CAPSULE(S) [place] 00 BY MOUTH Medical DAILY. Branch FLUoxetine 2020-0 Yes TAKE TWO Uni vers 40 mg 8-03 (2) ity of capsule 00:00: CAPSULE(S) [place] 00 BY MOUTH Medical ONCE A Branch DAY. FLUoxetine 2020-0 Yes TAKE THREE U nivers 20 mg 8-03 (3) ity of capsule 00:00: CAPSULE(S) [place] 00 BY MOUTH Medical DAILY. Branch FLUoxetine 2020-0 Yes TAKE TWO Uni vers 40 mg 8-03 (2) ity of capsule 00:00: CAPSULE(S) [place] 00 BY MOUTH Medical ONCE A Branch DAY. FLUoxetine 2020-0 Yes TAKE THREE U nivers 20 mg 8-03 (3) ity of capsule 00:00: CAPSULE(S) [place] 00 BY MOUTH Medical DAILY. Branch FLUoxetine 2020-0 Yes TAKE TWO Uni vers 40 mg 8-03 (2) ity of capsule 00:00: CAPSULE(S) [place] 00 BY MOUTH Medical ONCE A Branch DAY. FLUoxetine 2020-0 Yes TAKE THREE U nivers 20 mg 8-03 (3) ity of capsule 00:00: CAPSULE(S) [place] 00 BY MOUTH Medical DAILY. Branch FLUoxetine 2020-0 Yes TAKE TWO Uni vers 40 mg 8-03 (2) ity of capsule 00:00: CAPSULE(S) [place] 00 BY MOUTH Medical ONCE A Branch DAY. FLUoxetine 2020-0 Yes TAKE THREE U nivers 20 mg 8-03 (3) ity of capsule 00:00: CAPSULE(S) [place] 00 BY MOUTH Medical DAILY. Branch FLUoxetine 2020-0 Yes TAKE TWO Uni vers 40 mg 8-03 (2) ity of capsule 00:00: CAPSULE(S) [place] 00 BY MOUTH Medical ONCE A Branch DAY. FLUoxetine 2020-0 Yes TAKE THREE U nivers 20 mg 8-03 (3) ity of capsule 00:00: CAPSULE(S) [place] 00 BY MOUTH Medical DAILY. Branch FLUoxetine 2020-0 Yes 30mg 30 mg. Unive rs 40 mg 8-03 Eventually ity of capsule 00:00: will come [place] 00 off of it. Medical Branch FLUoxetine 2020-0 Yes TAKE THREE U nivers 20 mg 8-03 (3) ity of capsule 00:00: CAPSULE(S) [place] 00 BY MOUTH Medical DAILY. Branch FLUoxetine 2020-0 Yes 30mg 30 mg. Unive rs 40 mg 8-03 Eventually ity of capsule 00:00: will come [place] 00 off of it. Medical Branch FLUoxetine 2020-0 Yes TAKE THREE U nivers 20 mg 8-03 (3) ity of capsule 00:00: CAPSULE(S) [place] 00 BY MOUTH Medical DAILY. Branch FLUoxetine 2020-0 Yes 30mg 30 mg. Unive rs 40 mg 8-03 Eventually ity of capsule 00:00: will come [place] 00 off of it. Medical Branch FLUoxetine 2020-0 Yes TAKE THREE U nivers 20 mg 8-03 (3) ity of capsule 00:00: CAPSULE(S) [place] 00 BY MOUTH Medical DAILY. Branch FLUoxetine 2020-0 Yes 30mg 30 mg. Unive rs 40 mg 8-03 Eventually ity of capsule 00:00: will come [place] 00 off of it. Medical Branch FLUoxetine 2020-0 Yes TAKE THREE U nivers 20 mg 8-03 (3) ity of capsule 00:00: CAPSULE(S) [place] 00 BY MOUTH Medical DAILY. Branch FLUoxetine 2020-0 Yes 30mg 30 mg. Unive rs 40 mg 8-03 Eventually ity of capsule 00:00: will come [place] 00 off of it. Medical Branch FLUoxetine 2020-0 Yes TAKE THREE U nivers 20 mg 8-03 (3) ity of capsule 00:00: CAPSULE(S) [place] 00 BY MOUTH Medical DAILY. Branch FLUoxetine 2020-0 Yes 30mg 30 mg. Unive rs 40 mg 8-03 Eventually ity of capsule 00:00: will come [place] 00 off of it. Medical Branch FLUoxetine 2020-0 Yes TAKE THREE U nivers 20 mg 8-03 (3) ity of capsule 00:00: CAPSULE(S) [place] 00 BY MOUTH Medical DAILY. Branch FLUoxetine 2020-0 Yes 30mg 30 mg. Unive rs 40 mg 8-03 Eventually ity of capsule 00:00: will come [place] 00 off of it. Medical Branch FLUoxetine 2020-0 Yes TAKE THREE U nivers 20 mg 8-03 (3) ity of capsule 00:00: CAPSULE(S) [place] 00 BY MOUTH Medical DAILY. Branch FLUoxetine 2020-0 Yes 30mg 30 mg. Unive rs 40 mg 8-03 Eventually ity of capsule 00:00: will come [place] 00 off of it. Medical Branch FLUoxetine 2020-0 Yes TAKE THREE U nivers 20 mg 8-03 (3) ity of capsule 00:00: CAPSULE(S) [place] 00 BY MOUTH Medical DAILY. Branch FLUoxetine 2020-0 Yes 30mg 30 mg. Unive rs 40 mg 8-03 Eventually ity of capsule 00:00: will come [place] 00 off of it. Medical Branch FLUoxetine 2020-0 Yes TAKE THREE U nivers 20 mg 8-03 (3) ity of capsule 00:00: CAPSULE(S) [place] 00 BY MOUTH Medical DAILY. Branch FLUoxetine 2020-0 Yes 30mg 30 mg. Unive rs 40 mg 8-03 Eventually ity of capsule 00:00: will come [place] 00 off of it. Medical Branch FLUoxetine 2020-0 Yes TAKE THREE U nivers 20 mg 8-03 (3) ity of capsule 00:00: CAPSULE(S) [place] 00 BY MOUTH Medical DAILY. Branch FLUoxetine 2020-0 Yes 30mg 30 mg. Unive rs 40 mg 8-03 Eventually ity of capsule 00:00: will come [place] 00 off of it. Medical Branch FLUoxetine 2020-0 Yes TAKE THREE U nivers 20 mg 8-03 (3) ity of capsule 00:00: CAPSULE(S) [place] 00 BY MOUTH Medical DAILY. Branch FLUoxetine 2020-0 Yes 30mg 30 mg. Unive rs 40 mg 8-03 Eventually ity of capsule 00:00: will come [place] 00 off of it. Medical Branch FLUoxetine 2020-0 Yes TAKE THREE U nivers 20 mg 8-03 (3) ity of capsule 00:00: CAPSULE(S) [place] 00 BY MOUTH Medical DAILY. Branch FLUoxetine 2020-0 Yes 30mg 30 mg. Unive rs 40 mg 8-03 Eventually ity of capsule 00:00: will come [place] 00 off of it. Medical Branch FLUoxetine 2020-0 Yes TAKE THREE U nivers 20 mg 8-03 (3) ity of capsule 00:00: CAPSULE(S) [place] 00 BY MOUTH Medical DAILY. Branch FLUoxetine 2020-0 Yes TAKE TWO Uni vers 40 mg 8-03 (2) ity of capsule 00:00: CAPSULE(S) [place] 00 BY MOUTH Medical ONCE A Branch DAY. FLUoxetine 2020-0 Yes TAKE THREE U nivers 20 mg 8-03 (3) ity of capsule 00:00: CAPSULE(S) [place] 00 BY MOUTH Medical DAILY. Branch FLUoxetine 2020-0 Yes TAKE TWO Uni vers 40 mg 8-03 (2) ity of capsule 00:00: CAPSULE(S) [place] 00 BY MOUTH Medical ONCE A Branch DAY. FLUoxetine Yes TAKE THREE U nivers 20 mg 8-03 (3) ity of capsule 00:00: CAPSULE(S) [place] BY MOUTH [facility] DAILY. [facility] FLUoxetine Yes TAKE TWO [facility] 40 mg 8-03 (2) ity of capsule 00:00: [place](S[place] 00 BY MOUTH Medical ONCE A Branch DAY. FLUoxetine 2020- No TAKE THREE [facility] 20 mg 8- 08-10 (3) ity of capsule 00:00: 00:00 CAPSULE(S) [place] 00 :00 BY MOUTH Medical DAILY. Branch FLUoxetine 2020- No 30mg 30 mg. [facility] 40 mg 8- 08-10 Eventually ity of capsule 00:00: [place] come [place] [facility]. [facility] FLUoxetine 2020- No TAKE THREE [facility] 20 mg 8- 08-10 (3) ity of capsule 00:00: 00:00 CAPSULE(S) [place] 00 :00 BY MOUTH Medical DAILY. [facility] FLUoxetine 2020- No 30mg 30 mg. [facility] 40 mg 8- 08-10 Eventually [facility]y of capsule 00:00: 00:[place] [facility]. [facility] FLUoxetine 2020- No TAKE THREE [facility] 20 mg 8- 08-10 (3) ity of capsule 00:00: 00:00 CAPSULE(S) [place] 00 :00 BY MOUTH Medical DAILY. [facility] FLUoxetine 2020- No 30mg 30 mg. [facility] 40 mg - 08-10 Eventually [facility]y of capsule 00:00: 00:[place] [facility] it. [facility] ARIPiprazol Yes TAKE ONE [facility] 15 mg 7-28 (1) ity of tablet 00:00: TABLET(S) BY MOUTH Medical ONCE A Branch DAY. ARIPiprazol Yes TAKE ONE [facility] 15 mg 7-28 (1) ity of tablet 00:00: TABLET(S) BY MOUTH Medical ONCE A Branch DAY. ARIPiprazol 2020-0 Yes TAKE ONE [facility] 15 mg 7-28 (1) ity of tablet 00:00: TABLET(S) [place] 00 BY MOUTH Medical ONCE A Branch DAY. ARIPiprazol 2020-0 Yes TAKE ONE [facility] 15 mg 7-28 (1) ity of tablet 00:00: TABLET(S) [place] 00 BY MOUTH Medical ONCE A Branch DAY. ARIPiprazol 2020-0 Yes TAKE ONE [facility] 15 mg 7-28 (1) ity of tablet 00:00: TABLET(S) [place] 00 BY MOUTH Medical ONCE A Branch DAY. ARIPiprazol 2020-0 Yes TAKE ONE [facility] 15 mg 7-28 (1) ity of tablet 00:00: TABLET(S) [place] 00 BY MOUTH Medical ONCE A Branch DAY. ARIPiprazol 2020-0 Yes TAKE ONE [facility] 15 mg 7-28 (1) ity of tablet 00:00: TABLET(S) [place] 00 BY MOUTH Medical ONCE A Branch DAY. ARIPiprazol 2020-0 Yes TAKE ONE [facility] 15 mg 7-28 (1) ity of tablet 00:00: TABLET(S) [place] 00 BY MOUTH Medical ONCE A Branch DAY. ARIPiprazol 2020-0 Yes TAKE ONE [facility] 15 mg 7-28 (1) ity of tablet 00:00: TABLET(S) [place] 00 BY MOUTH Medical ONCE A Branch DAY. ARIPiprazol 2020-0 Yes TAKE ONE [facility] 15 mg 7-28 (1) ity of tablet 00:00: TABLET(S) [place] 00 BY MOUTH Medical ONCE A Branch DAY. ARIPiprazol 2020-0 Yes TAKE ONE [facility] 15 mg 7-28 (1) ity of tablet 00:00: TABLET(S) [place] 00 BY MOUTH Medical ONCE A Branch DAY. ARIPiprazol 2020-0 Yes TAKE ONE [facility] 15 mg 7-28 (1) ity of tablet 00:00: TABLET(S) [place] 00 BY MOUTH Medical ONCE A Branch DAY. ARIPiprazol 2020-0 Yes TAKE ONE [facility] 15 mg 7-28 (1) ity of tablet 00:00: TABLET(S) [place] 00 BY MOUTH Medical ONCE A Branch DAY. ARIPiprazol 2020-0 Yes TAKE ONE [facility] 15 mg 7-28 (1) ity of tablet 00:00: TABLET(S) [place] 00 BY MOUTH Medical ONCE A Branch DAY. ARIPiprazol 2020-0 Yes TAKE ONE [facility] 15 mg 7-28 (1) ity of tablet 00:00: TABLET(S) [place] 00 BY MOUTH Medical ONCE A Branch DAY. ARIPiprazol 2020-0 Yes TAKE ONE [facility] 15 mg 7-28 (1) ity of tablet 00:00: TABLET(S) [place] 00 BY MOUTH Medical ONCE A Branch DAY. ARIPiprazol 2020-0 Yes TAKE ONE [facility] 15 mg 7-28 (1) ity of tablet 00:00: TABLET(S) [place] 00 BY MOUTH Medical ONCE A Branch DAY. ARIPiprazol 2020-0 Yes TAKE ONE [facility] 15 mg 7-28 (1) ity of tablet 00:00: TABLET(S) [place] 00 BY MOUTH Medical ONCE A Branch DAY. ARIPiprazol 2020-0 Yes TAKE ONE [facility] 15 mg 7-28 (1) ity of tablet 00:00: TABLET(S) [place] 00 BY MOUTH Medical ONCE A Branch DAY. ARIPiprazol 2020-0 Yes TAKE ONE [facility] 15 mg 7-28 (1) ity of tablet 00:00: TABLET(S) [place] 00 BY MOUTH Medical ONCE A Branch DAY. ARIPiprazol 2020-0 Yes TAKE ONE [facility] 15 mg 7-28 (1) ity of tablet 00:00: TABLET(S) [place] 00 BY MOUTH Medical ONCE A Branch DAY. ARIPiprazol 2020-0 Yes TAKE ONE [facility] 15 mg 7-28 (1) ity of tablet 00:00: TABLET(S) [place] 00 BY MOUTH Medical ONCE A Branch DAY. ARIPiprazol 2020-0 Yes TAKE ONE [facility] 15 mg 7-28 (1) ity of tablet 00:00: TABLET(S) [place] 00 BY MOUTH Medical ONCE A Branch DAY. ARIPiprazol 2020-0 Yes TAKE ONE [facility] 15 mg 7-28 (1) ity of tablet 00:00: TABLET(S) [place] 00 BY MOUTH Medical ONCE A Branch DAY. ARIPiprazol 2020-0 Yes TAKE ONE [facility] 15 mg 7-28 (1) ity of tablet 00:00: TABLET(S) BY MOUTH Medical ONCE A Branch DAY. ARIPiprazol 2020-0 Yes TAKE ONE [facility] 15 mg 7-28 (1) ity of tablet 00:00: TABLET(S) BY MOUTH Medical ONCE A Branch DAY. ARIPiprazol 2020-0 Yes TAKE ONE [facility] 15 mg 7-28 (1) ity of tablet 00:00: TABLET(S) BY MOUTH Medical ONCE A Branch DAY. ARIPiprazol 2020-0 Yes TAKE ONE [facility] 15 mg 7-28 (1) ity of tablet 00:00: TABLET(S) BY MOUTH Medical ONCE A Branch DAY. ARIPiprazol 2020-0 Yes TAKE ONE [facility] 15 mg 7-28 (1) ity of tablet 00:00: TABLET(S) BY MOUTH Medical ONCE A Branch DAY. ARIPiprazol 2020-0 Yes 10mg 10 mg. [facility] 15 mg 7-28 ity of tablet 00:00: [facility] ARIPiprazol 2020-0 Yes 10mg 10 mg. [facility] 15 mg 7-28 ity of tablet 00:00: [facility] ARIPiprazol 2020-0 Yes 10mg 10 mg. [facility] 15 mg 7-28 ity of tablet 00:00: [facility] ARIPiprazol 2020-0 Yes 10mg 10 mg. [facility] 15 mg 7-28 ity of tablet 00:00: [facility] ARIPiprazol 2020-0 Yes 10mg 10 mg. [facility] 15 mg 7-28 ity of tablet 00:00: [facility] ARIPiprazol 2020-0 Yes TAKE ONE [facility] 15 mg 7-28 (1) ity of tablet 00:00: TABLET(S) BY MOUTH Medical ONCE A Branch DAY. ARIPiprazol 2020-0 Yes 10mg 10 mg. [facility] 15 mg 7-28 ity of tablet 00:00: [facility] ARIPiprazol 2020-0 Yes 10mg 10 mg. [facility] 15 mg 7-28 ity of tablet 00:00: [facility] Branch ARIPiprazol 2020-0 Yes 10mg 10 mg. [facility] 15 mg 7-28 ity of tablet 00:00: [place] 00 [facility] ARIPiprazol 2020-0 Yes TAKE ONE [facility] 15 mg 7-28 (1) ity of tablet 00:00: TABLET(S) [place] 00 BY MOUTH Medical ONCE A Branch DAY. ARIPiprazol 2020-0 Yes TAKE ONE [facility] 15 mg 7-28 (1) ity of tablet 00:00: TABLET(S) [place] 00 BY MOUTH Medical ONCE A Branch DAY. omeprazole 2020-0 Yes TAKE ONE [facility] 40 mg 7-23 (1) ity of capsule 00:00: [place] BY MOUTH Medical ONCE A Branch DAY. omeprazole 2020-0 Yes TAKE ONE [facility] 40 mg 7-23 (1) ity of capsule 00:00: [place] BY MOUTH Medical ONCE A Branch DAY. omeprazole 2020-0 Yes TAKE ONE [facility] 40 mg 7-23 (1) ity of capsule 00:00: [place]SULE(S[place] BY MOUTH Medical ONCE A Branch DAY. omeprazole 2020-0 Yes TAKE ONE [facility] 40 mg 7-23 (1) ity of capsule 00:00: CAPSULE(S[place] BY MOUTH Medical ONCE A Branch DAY. omeprazole 2020-0 Yes TAKE ONE [facility] 40 mg 7-23 (1) ity of capsule 00:00: CAPSULE(S[place] BY MOUTH Medical ONCE A Branch DAY. omeprazole 2020-0 Yes TAKE ONE [facility] 40 mg 7-23 (1) ity of capsule 00:00: CAPSULE(S[place] BY MOUTH Medical ONCE A Branch DAY. omeprazole 2020-0 Yes TAKE ONE [facility] 40 mg 7-23 (1) ity of capsule 00:00: CAPSULE(S[place] BY MOUTH Medical ONCE A Branch DAY. omeprazole 2020-0 Yes TAKE ONE [facility] 40 mg 7-23 (1) ity of capsule 00:00: CAPSULE(S[place] BY MOUTH Medical ONCE A Branch DAY. omeprazole 2020-0 Yes TAKE ONE [facility] 40 mg 7-23 (1) ity of capsule 00:00: CAPSULE(S[place] 00 BY MOUTH Medical ONCE A Branch DAY. omeprazole 2020-0 Yes TAKE ONE [facility] 40 mg 7-23 (1) ity of capsule 00:00: CAPSULE(S[place] 00 BY MOUTH Medical ONCE A Branch DAY. omeprazole 2020-0 Yes TAKE ONE [facility] 40 mg 7-23 (1) ity of capsule 00:00: CAPSULE(S[place] 00 BY MOUTH Medical ONCE A Branch DAY. omeprazole 2020-0 Yes TAKE ONE [facility] 40 mg 7-23 (1) ity of capsule 00:00: CAPSULE(S[place] 00 BY MOUTH Medical ONCE A Branch DAY. omeprazole 2020-0 Yes TAKE ONE [facility] 40 mg 7-23 (1) ity of capsule 00:00: CAPSULE(S) [place] 00 BY MOUTH Medical ONCE A Branch DAY. omeprazole 2020-0 Yes TAKE ONE [facility] 40 mg 7-23 (1) ity of capsule 00:00: CAPSULE(S) [place] 00 BY MOUTH Medical ONCE A Branch DAY. omeprazole 2020-0 Yes TAKE ONE [facility] 40 mg 7-23 (1) ity of capsule 00:00: CAPSULE(S[place] 00 BY MOUTH Medical ONCE A Branch DAY. omeprazole 2020-0 Yes TAKE ONE [facility] 40 mg 7-23 (1) ity of capsule 00:00: CAPSULE(S) [place] 00 BY MOUTH Medical ONCE A Branch DAY. omeprazole 2020-0 Yes TAKE ONE [facility] 40 mg 7-23 (1) ity of capsule 00:00: CAPSULE(S) [place] 00 BY MOUTH Medical ONCE A Branch DAY. omeprazole 2020-0 Yes TAKE ONE [facility] 40 mg 7-23 (1) ity of capsule 00:00: CAPSULE(S) [place] 00 BY MOUTH Medical ONCE A Branch DAY. omeprazole 2020-0 Yes TAKE ONE [facility] 40 mg 7-23 (1) ity of capsule 00:00: CAPSULE(S) [place] 00 BY MOUTH Medical ONCE A Branch DAY. omeprazole 2020-0 Yes TAKE ONE [facility] 40 mg 7-23 (1) ity of capsule 00:00: CAPSULE(S) [place] 00 BY MOUTH Medical ONCE A Branch DAY. omeprazole 2020-0 Yes TAKE ONE [facility] 40 mg 7-23 (1) ity of capsule 00:00: CAPSULE(S) [place] 00 BY MOUTH Medical ONCE A Branch DAY. omeprazole 2020-0 Yes TAKE ONE [facility] 40 mg 7-23 (1) ity of capsule 00:00: CAPSULE(S) [place] 00 BY MOUTH Medical ONCE A Branch DAY. omeprazole 2020-0 Yes TAKE ONE [facility] 40 mg 7-23 (1) ity of capsule 00:00: CAPSULE(S) [place] 00 BY MOUTH Medical ONCE A Branch DAY. omeprazole 2020-0 Yes TAKE ONE [facility] 40 mg 7-23 (1) ity of capsule 00:00: CAPSULE(S) [place] 00 BY MOUTH Medical ONCE A Branch DAY. omeprazole 2020-0 Yes TAKE ONE [facility] 40 mg 7-23 (1) ity of capsule 00:00: CAPSULE(S) [place] 00 BY MOUTH Medical ONCE A Branch DAY. omeprazole 2020-0 Yes TAKE ONE [facility] 40 mg 7-23 (1) ity of capsule 00:00: CAPSULE(S) [place] 00 BY MOUTH Medical ONCE A Branch DAY. omeprazole 2020-0 Yes TAKE ONE [facility] 40 mg 7-23 (1) ity of capsule 00:00: CAPSULE(S) [place] 00 BY MOUTH Medical ONCE A Branch DAY. omeprazole 2020-0 Yes TAKE ONE [facility] 40 mg 7-23 (1) ity of capsule 00:00: CAPSULE(S) [place] 00 BY MOUTH Medical ONCE A Branch DAY. omeprazole 2020-0 Yes TAKE ONE [facility] 40 mg 7-23 (1) ity of capsule 00:00: CAPSULE(S) [place] 00 BY MOUTH Medical ONCE A Branch DAY. omeprazole 2020-0 Yes TAKE ONE [facility] 40 mg 7-23 (1) ity of capsule 00:00: CAPSULE(S) [place] 00 BY MOUTH Medical ONCE A Branch DAY. omeprazole 2020-0 Yes TAKE ONE [facility] 40 mg 7-23 (1) ity of capsule 00:00: CAPSULE(S) [place] 00 BY MOUTH Medical ONCE A Branch DAY. omeprazole 2020-0 Yes TAKE ONE [facility] 40 mg 7-23 (1) ity of capsule 00:00: CAPSULE(S) [place] 00 BY MOUTH Medical ONCE A Branch DAY. omeprazole 2020-0 Yes TAKE ONE [facility] 40 mg 7-23 (1) ity of capsule 00:00: CAPSULE(S) [place] 00 BY MOUTH Medical ONCE A Branch DAY. omeprazole 2020-0 Yes TAKE ONE [facility] 40 mg 7-23 (1) ity of capsule 00:00: CAPSULE(S) [place] 00 BY MOUTH Medical ONCE A Branch DAY. omeprazole 2020-0 Yes TAKE ONE [facility] 40 mg 7-23 (1) ity of capsule 00:00: CAPSULE(S) [place] 00 BY MOUTH Medical ONCE A Branch DAY. omeprazole 2020-0 Yes TAKE ONE [facility] 40 mg 7-23 (1) ity of capsule 00:00: CAPSULE(S) [place] 00 BY MOUTH Medical ONCE A Branch DAY. omeprazole 2020-0 Yes TAKE ONE [facility] 40 mg 7-23 (1) ity of capsule 00:00: CAPSULE(S) [place] 00 BY MOUTH Medical ONCE A Branch DAY. omeprazole 2020-0 Yes TAKE ONE [facility] 40 mg 7-23 (1) ity of capsule 00:00: CAPSULE(S) [place] 00 BY MOUTH Medical ONCE A Branch DAY. omeprazole 2020-0 Yes TAKE ONE [facility] 40 mg 7-23 (1) ity of capsule 00:00: CAPSULE(S) [place] 00 BY MOUTH Medical ONCE A Branch DAY. omeprazole 2020-0 Yes TAKE ONE [facility] 40 mg 7-23 (1) ity of capsule 00:00: CAPSULE(S) [place] 00 BY MOUTH Medical ONCE A Branch DAY. omeprazole 2020-0 2020- No TAKE 1 [facility] (PriLOSEC) 7-23 05-12 CAPSULE [facility] [address] 00:00: 00:00 DAILY capsule 00 :00 hydrOXYzine 2020-0 Yes TAKE ONE [facility] 10 mg 7-04 (1) ity of tablet 00:00: TABLET(S) BY MOUTH Medical TWICE A Branch DAY NEEDED FOR ANXIETY. hydrOXYzine 2020-0 Yes TAKE ONE [facility] 10 mg 7-04 (1) ity of tablet 00:00: TABLET(S) BY MOUTH Medical TWICE A Branch DAY NEEDED FOR ANXIETY. hydrOXYzine 2020-0 Yes TAKE ONE [facility] 10 mg 7-04 (1) ity of tablet 00:00: TABLET(S) BY MOUTH Medical TWICE A Branch DAY NEEDED FOR ANXIETY. hydrOXYzine 2020-0 Yes TAKE ONE [facility] 10 mg 7-04 (1) ity of tablet 00:00: TABLET(S) [place] 00 BY MOUTH Medical TWICE A Branch DAY NEEDED FOR ANXIETY. hydrOXYzine 2020-0 Yes TAKE ONE [facility] 10 mg 7-04 (1) ity of tablet 00:00: TABLET(S) [place] 00 BY MOUTH Medical TWICE A Branch DAY NEEDED FOR ANXIETY. hydrOXYzine 2020-0 Yes TAKE ONE [facility] 10 mg 7-04 (1) ity of tablet 00:00: TABLET(S) [place] 00 BY MOUTH Medical TWICE A Branch DAY NEEDED FOR ANXIETY. hydrOXYzine 2020-0 Yes TAKE ONE [facility] 10 mg 7-04 (1) ity of tablet 00:00: TABLET(S) [place] 00 BY MOUTH Medical TWICE A Branch DAY NEEDED FOR ANXIETY. hydrOXYzine 2020-0 Yes TAKE ONE [facility] 10 mg 7-04 (1) ity of tablet 00:00: TABLET(S) [place] 00 BY MOUTH Medical TWICE A Branch DAY NEEDED FOR ANXIETY. hydrOXYzine 2020-0 Yes TAKE ONE [facility] 10 mg 7-04 (1) ity of tablet 00:00: TABLET(S) [place] 00 BY MOUTH Medical TWICE A Branch DAY NEEDED FOR ANXIETY. hydrOXYzine 2020-0 Yes TAKE ONE [facility] 10 mg 7-04 (1) ity of tablet 00:00: TABLET(S) [place] 00 BY MOUTH Medical TWICE A Branch DAY NEEDED FOR ANXIETY. hydrOXYzine 2020-0 Yes TAKE ONE [facility] 10 mg 7-04 (1) ity of tablet 00:00: TABLET(S) [place] 00 BY MOUTH Medical TWICE A Branch DAY NEEDED FOR ANXIETY. hydrOXYzine 2020-0 Yes TAKE ONE [facility] 10 mg 7-04 (1) ity of tablet 00:00: TABLET(S) [place] 00 BY MOUTH Medical TWICE A Branch DAY NEEDED FOR ANXIETY. hydrOXYzine 2020-0 Yes TAKE ONE [facility] 10 mg 7-04 (1) ity of tablet 00:00: TABLET(S) [place] 00 BY MOUTH Medical TWICE A Branch DAY NEEDED FOR ANXIETY. hydrOXYzine 2020-0 Yes TAKE ONE [facility] 10 mg 7-04 (1) ity of tablet 00:00: TABLET(S) [place] 00 BY MOUTH Medical TWICE A Branch DAY NEEDED FOR ANXIETY. hydrOXYzine 2020-0 Yes TAKE ONE [facility] 10 mg 7-04 (1) ity of tablet 00:00: TABLET(S) [place] 00 BY MOUTH Medical TWICE A Branch DAY NEEDED FOR ANXIETY. hydrOXYzine 2020-0 Yes TAKE ONE [facility] 10 mg 7-04 (1) ity of tablet 00:00: TABLET(S) [place] 00 BY MOUTH Medical TWICE A Branch DAY NEEDED FOR ANXIETY. hydrOXYzine 2020-0 Yes TAKE ONE [facility] 10 mg 7-04 (1) ity of tablet 00:00: TABLET(S) [place] 00 BY MOUTH Medical TWICE A Branch DAY NEEDED FOR ANXIETY. hydrOXYzine 2020-0 Yes TAKE ONE [facility] 10 mg 7-04 (1) ity of tablet 00:00: TABLET(S) [place] 00 BY MOUTH Medical TWICE A Branch DAY NEEDED FOR ANXIETY. hydrOXYzine 2020-0 Yes TAKE ONE [facility] 10 mg 7-04 (1) ity of tablet 00:00: TABLET(S) [place] 00 BY MOUTH Medical TWICE A Branch DAY NEEDED FOR ANXIETY. hydrOXYzine 2020-0 Yes TAKE ONE [facility] 10 mg 7-04 (1) ity of tablet 00:00: TABLET(S) [place] 00 BY MOUTH Medical TWICE A Branch DAY NEEDED FOR ANXIETY. hydrOXYzine 2020-0 Yes TAKE ONE [facility] 10 mg 7-04 (1) ity of tablet 00:00: TABLET(S) [place] 00 BY MOUTH Medical TWICE A Branch DAY NEEDED FOR ANXIETY. hydrOXYzine 2020-0 Yes TAKE ONE [facility] 10 mg 7-04 (1) ity of tablet 00:00: TABLET(S) [place] 00 BY MOUTH Medical TWICE A Branch DAY NEEDED FOR ANXIETY. hydrOXYzine 2020-0 Yes TAKE ONE [facility] 10 mg 7-04 (1) ity of tablet 00:00: TABLET(S) [place] 00 BY MOUTH Medical TWICE A Branch DAY NEEDED FOR ANXIETY. hydrOXYzine 2020-0 Yes TAKE ONE [facility] 10 mg 7-04 (1) ity of tablet 00:00: TABLET(S) [place] 00 BY MOUTH Medical TWICE A Branch DAY NEEDED FOR ANXIETY. hydrOXYzine 2020-0 Yes TAKE ONE [facility] 10 mg 7-04 (1) ity of tablet 00:00: TABLET(S) [place] 00 BY MOUTH Medical TWICE A Branch DAY NEEDED FOR ANXIETY. hydrOXYzine 2020-0 Yes TAKE ONE [facility] 10 mg 7-04 (1) ity of tablet 00:00: TABLET(S) [place] 00 BY MOUTH Medical TWICE A Branch DAY NEEDED FOR ANXIETY. hydrOXYzine 2020-0 Yes TAKE ONE [facility] 10 mg 7-04 (1) ity of tablet 00:00: TABLET(S) [place] 00 BY MOUTH Medical TWICE A Branch DAY NEEDED FOR ANXIETY. hydrOXYzine 2020-0 Yes TAKE ONE [facility] 10 mg 7-04 (1) ity of tablet 00:00: TABLET(S) [place] 00 BY MOUTH Medical TWICE A Branch DAY NEEDED FOR ANXIETY. hydrOXYzine 2020-0 Yes TAKE ONE [facility] 10 mg 7-04 (1) ity of tablet 00:00: TABLET(S) [place] 00 BY MOUTH Medical TWICE A Branch DAY NEEDED FOR ANXIETY. hydrOXYzine 2020-0 Yes TAKE ONE [facility] 10 mg 7-04 (1) ity of tablet 00:00: TABLET(S) [place] 00 BY MOUTH Medical TWICE A Branch DAY NEEDED FOR ANXIETY. hydrOXYzine 2020-0 Yes TAKE ONE [facility] 10 mg 7-04 (1) ity of tablet 00:00: TABLET(S) [place] 00 BY MOUTH Medical TWICE A Branch DAY NEEDED FOR ANXIETY. hydrOXYzine 2020-0 Yes TAKE ONE [facility] 10 mg 7-04 (1) ity of tablet 00:00: TABLET(S) [place] 00 BY MOUTH Medical TWICE A Branch DAY NEEDED FOR ANXIETY. hydrOXYzine 2020-0 Yes TAKE ONE [facility] 10 mg 7-04 (1) ity of tablet 00:00: TABLET(S) [place] 00 BY MOUTH Medical TWICE A Branch DAY NEEDED FOR ANXIETY. hydrOXYzine 2020-0 Yes TAKE ONE [facility] 10 mg 7-04 (1) ity of tablet 00:00: TABLET(S) [place] 00 BY MOUTH Medical TWICE A Branch DAY NEEDED FOR ANXIETY. hydrOXYzine 2020-0 Yes TAKE ONE [facility] 10 mg 7-04 (1) ity of tablet 00:00: TABLET(S) [place] 00 BY MOUTH Medical TWICE A Branch DAY NEEDED FOR ANXIETY. hydrOXYzine 2020-0 Yes TAKE ONE [facility] 10 mg 7-04 (1) ity of tablet 00:00: TABLET(S) [place] 00 BY MOUTH Medical TWICE A Branch DAY NEEDED FOR ANXIETY. hydrOXYzine 2020-0 Yes TAKE ONE [facility] 10 mg 7-04 (1) ity of tablet 00:00: TABLET(S) 00 BY MOUTH Medical TWICE A Branch DAY NEEDED FOR ANXIETY. hydrOXYzine 2019-0 Yes TAKE ONE [facility] 10 mg 7-04 (1) ity of tablet 00:00: TABLET(S) [place] 00 BY MOUTH Medical TWICE A Branch DAY NEEDED FOR ANXIETY. hydrOXYzine 2019- Yes TAKE ONE [facility] 10 mg 7-04 (1) ity of tablet 00:00: TABLET(S) BY MOUTH Medical TWICE A Branch DAY NEEDED FOR ANXIETY. hydrOXYzine 2019- Yes TAKE ONE [facility] 10 mg 7-04 (1) ity of tablet 00:00: TABLET(S) BY MOUTH Medical TWICE A Branch DAY NEEDED FOR ANXIETY. (HYDROXYZIN 2020- No [place] TAKE ONE [facility] HCL) 10 11-13 02-03 Maria R BROOKS (1) [facility] TABS 00:00: 00:00 TABLET(S) [place] soheila 00 :00 BY MOUTH ral TWICE A Health DAY NEEDED FOR ANXIETY. Lo Loestrin Lo Loestrin No 1{table QD Lo Fe 1 MG-10 Fe 1 MG-10 8-08 t} Loestrin MCG / 10 MCG / 10 00:00: Fe 1 MG-10 MCG MCG 00 MCG / 10 MCG Lo Loestrin Lo Loestrin No 1{table QD Lo Fe 1 MG-10 Fe 1 MG-10 8-08 t} Loestrin MCG / 10 MCG / 10 00:00: Fe 1 MG-10 MCG MCG 00 MCG / 10 MCG Lo Loestrin Lo Loestrin No 1{table QD Lo Fe 1 MG-10 Fe 1 MG-10 8-08 t} Loestrin MCG / 10 MCG / 10 00:00: Fe 1 MG-10 MCG MCG 00 MCG / 10 MCG (FLUOXETINE 2020- No 3{Capsu 1xD TAKE 3 By [facility] HCL) 20 MG 02-20 le} [facility] CAPS 00:00: 00:00 daily Behavio 00 :00 [facility] medroxyprog medroxyprog No 150mg Common esterone ac esterone ac 5-17 S pirit 00:00: - [facility] medroxyprog medroxyprog 2019-0 No 150mg Common esterone ac esterone ac 5-17 S pirit 00:00: - [facility] medroxyprog medroxyprog 2019-0 No 150mg Common esterone ac esterone ac 2-18 S pirit 00:00: - [facility] medroxyprog medroxyprog 2019-0 No 150mg Common esterone ac esterone ac 2-18 S pirit 00:00: - [facility] (FLUOXETINE 2019-0 2019- No 1{Capsu 1xD 1 By [facility] HCL) 10 MG 07-26 02-11 le} daily [facility]S 00:00: 00:00 Behavio 00 :00 [facility] medroxyprog medroxyprog 2018- No 150mg Common esterone ac esterone ac 1-26 S pirit 00:00: - [facility] medroxyprog medroxyprog 2018- No 150mg Common esterone ac esterone ac 1-26 S pirit 00:00: - [facility] medroxyprog medroxyprog 20180 No 150mg Common esterone ac esterone ac 8-28 S pirit 00:00: - [facility] medroxyprog medroxyprog 2018-0 No 150mg Common esterone ac esterone ac 8-28 S pirit 00:00: - [facility] PROZAC 0 2018- No 1 By [facility]outh [facility] (FLUOXETINE 12-13 08-14 daily [facility] HCL) 10 MG 00:00: 00:00 Behavi o CAPS 00 :00 [facility] tamsulosin 2018-0 Yes .4mg QD Take 0.4 [facility] (Flomax) 1-12 mg by Health 0.4 MG 24 00:00: mouth 1 hr capsule 00 (one) time each day. ZOLOFT 2016-07 2018- No take 1.5 [facility] (SERTRALINE 2-20 04-17 tabs daily [facility] HCL) 100 MG 00:00: 00:00 Behav io TABS 00 :00 [facility] Nexium Nexium Yes Mary Carmen 1 capsule Commo n [place] Abilify 15 Abilify 15 No 1{table QD Abilify 15 MG MG t} MG MiraLax 17 MiraLax 17 No 1{packe QD MiraLax 17 GM GM t_mixed GM _with_8 _ounces _of_flu id} L-Theanine L-Theanine No L-Theanine 100 MG 100 MG 100 MG B12 Folate B12 Folate No B12 Folate 800-800 MCG 800-800 MCG 800-800 MCG Magnesium Magnesium No 1{capsu QD Magnesium 300 MG 300 MG le_with 300 MG _a_meal } Biotin Biotin No Biotin 48564 MCG 60283 MCG 37814 MCG Vitamin C Vitamin C No 1{table QD Vitamin C 1000 MG 1000 MG t} 1000 MG Benefiber - Benefiber - No Benefiber - Melatonin 3 Melatonin 3 No 1{table QD Melatonin MG MG t_at_be 3 MG dtime_a s_neede d} Kyleigh Kyleigh No Kyleigh Omeprazole Omeprazole No QD Omeprazole 20 MG 20 MG 20 MG Laxative 5 Laxative 5 No 1{table QD Laxative 5 MG MG t_as_ne MG eded} Vitamin D Vitamin D No 1{table QD Vitamin D 50 MCG 50 MCG t} 50 MCG (2000 UT) (2000 UT) (2000 UT) buPROPion buPROPion No buPROPion HCl ER (XL) HCl ER (XL) HCl ER 300 MG 300 MG (XL) 300 MG Womens Womens No Womens Multi - Multi - Multi - hydrOXYzine hydrOXYzine No 1{table BID hydrOXYzin HCl 25 MG HCl 25 MG t_as_ne e HCl 25 eded} MG Fish Oil Fish Oil No 1{capsu QD Fish Oil 1000 MG 1000 MG le} 1000 MG Cranberry Cranberry No Cranberry Concentrate Concentrate Concentrat 500 MG 500 MG e 500 MG Vitamin A Vitamin A No 1{capsu QD Vitamin A 2400 MCG 2400 MCG le_with 2400 MCG (8000 UT) (8000 UT) _food_o (8000 UT) r_milk} Kyleigh Kyleigh No Kyleigh L-Theanine L-Theanine No L-Theanine 100 MG 100 MG 100 MG Melatonin 3 Melatonin 3 No 1{table QD Melatonin MG MG t_at_be 3 MG dtime_a s_neede d} Abilify 15 Abilify 15 No 1{table QD Abilify 15 MG MG t} MG buPROPion buPROPion No buPROPion HCl ER (XL) HCl ER (XL) HCl ER 300 MG 300 MG (XL) 300 MG Biotin Biotin No Biotin 96741 MCG 38366 MCG 76234 MCG B12 Folate B12 Folate No B12 Folate 800-800 MCG 800-800 MCG 800-800 MCG Womens Womens No Womens Multi - Multi - Multi - MiraLax 17 MiraLax 17 No 1{packe QD MiraLax 17 GM GM t_mixed GM _with_8 _ounces _of_flu id} Fish Oil Fish Oil No 1{capsu QD Fish Oil 1000 MG 1000 MG le} 1000 MG Omeprazole Omeprazole No QD Omeprazole 20 MG 20 MG 20 MG Laxative 5 Laxative 5 No 1{table QD Laxative 5 MG MG t_as_ne MG eded} Vitamin D Vitamin D No 1{table QD Vitamin D 50 MCG 50 MCG t} 50 MCG (1999 UT) (1999 UT) (1999 UT) Vitamin C Vitamin C No 1{table QD Vitamin C 1000 MG 1000 MG t} 1000 MG Vitamin A Vitamin A No 1{capsu QD Vitamin A 2400 MCG 2400 MCG le_with 2400 MCG (8000 UT) (8000 UT) _food_o (8000 UT) r_milk} Magnesium Magnesium No 1{capsu QD Magnesium 300 MG 300 MG le_with 300 MG _a_meal } Cranberry Cranberry No Cranberry Concentrate Concentrate Concentrat 500 MG 500 MG e 500 MG Benefiber - Benefiber - No Benefiber - hydrOXYzine hydrOXYzine No 1{table BID hydrOXYzin HCl 25 MG HCl 25 MG t_as_ne e HCl 25 eded} MG Womens Womens No Womens Multi - Multi - Multi - MiraLax 17 MiraLax 17 No 1{packe QD MiraLax 17 GM GM t_mixed GM _with_8 _ounces _of_flu id} Vitamin C Vitamin C No 1{table QD Vitamin C 1000 MG 1000 MG t} 1000 MG Biotin Biotin No Biotin 95357 MCG 00928 MCG 06169 MCG Laxative 5 Laxative 5 No 1{table QD Laxative 5 MG MG t_as_ne MG eded} Abilify 15 Abilify 15 No 1{table QD Abilify 15 MG MG t} MG Benefiber - Benefiber - No Benefiber - Magnesium Magnesium No 1{capsu QD Magnesium 300 MG 300 MG le_with 300 MG _a_meal } Kyleigh Kyleigh No Kyleigh Omeprazole Omeprazole No QD Omeprazole 20 MG 20 MG 20 MG B12 Folate B12 Folate No B12 Folate 800-800 MCG 800-800 MCG 800-800 MCG L-Theanine L-Theanine No L-Theanine 100 MG 100 MG 100 MG Melatonin 3 Melatonin 3 No 1{table QD Melatonin MG MG t_at_be 3 MG dtime_a s_neede d} Vitamin D Vitamin D No 1{table QD Vitamin D 50 MCG 50 MCG t} 50 MCG (1999 UT) (1999 UT) (1999 UT) buPROPion buPROPion No buPROPion HCl ER (XL) HCl ER (XL) HCl ER 300 MG 300 MG (XL) 300 MG Fish Oil Fish Oil No 1{capsu QD Fish Oil 1000 MG 1000 MG le} 1000 MG Cranberry Cranberry No Cranberry Concentrate Concentrate Concentrat 500 MG 500 MG e 500 MG hydrOXYzine hydrOXYzine No 1{table BID hydrOXYzin HCl 25 MG HCl 25 MG t_as_ne e HCl 25 eded} MG Vitamin A Vitamin A No 1{capsu QD Vitamin A 2400 MCG 2400 MCG le_with 2400 MCG (8000 UT) (8000 UT) _food_o (8000 UT) r_milk} Immunizations Ordered Immunization Filled Immunization Date Status Commen ts Source Name Name SARS-COV-2 COVID-2021-10 Completed [facility] -[address] [place] [address] 00:00:0 Branch 0 SARS-COV-2 COVID-19 2021-10 Completed [facility] VACCINE -[address] [place] [address] 00:00:0 Branch 0 SARS-COV-2 COVID-19 2021-10 Completed [facility] PFIZ[facility] VACCINE -[address] [place] [address] 00:00:0 Branch 0 SARS-COV-2 COVID-19 2021-10 Completed [facility] of [place] VACCINE -19 [facility] 00:00:0 Branch 0 SARS-COV-2 COVID-19 2021-10 Completed [facility] of PFIZER VACCINE -[address] [place] [address] 00:00:0 Branch 0 SARS-COV-2 COVID-19 2021-10 Completed [facility] [place] VACCINE -[address] [place] [address] 00:00:0 Branch 0 SARS-COV-2 COVID-19 2021-10 Completed [facility] 0 SARS-COV-2 COVID-19 2021-10 Completed [facility] -[facility] 0 SARS-COV-2 COVID-19 2021-09 Completed [facility] -28 [facility] 0 SARS-COV-2 COVID-19 2021-09 Completed [facility] -[facility]:0 [facility] 0 SARS-COV-2 COVID-19 2021-09 Completed [facility] -[facility] [place] [facility] 0 SARS-COV-2 COVID-19 2021-09 Completed [facility] PFIZER VACCINE -28 [facility]0 [facility] 0 SARS-COV-2 COVID-19 2021-09 Completed [facility] PFIZER VACCINE -28 [facility]0 [facility] 0 SARS-COV-2 COVID-19 2021-09 Completed [facility] PFIZER VACCINE -28 [facility]0 [facility] 0 SARS-COV-2 COVID-19 2021-09 Completed [facility] rs[facility] PFIZER VACCINE -28 [facility]0 [facility] 0 SARS-COV-2 COVID-19 2021-09 Completed [facility] PFIZER VACCINE -28 [facility]0 [facility] 0 HPV Unspecified 2021-02 Completed [facility] -[facility] 00:00:0 [facility] 0 HPV Unspecified 2021-02 Completed [facility] -10 [facility] 00:00:0 Branch 0 HPV Unspecified 2021-02 Completed [facility] -10 [facility] 00[facility]00:0 Branch 0 HPV Unspecified 2021-02 Completed [facility] -10 [facility] 00:00:0 Branch 0 HPV Unspecified 2021-02 Completed [facility] -10 [facility] 00:00:0 Branch 0 HPV Unspecified 2021-02 Completed [facility] -10 [facility] 00:00:0 Branch 0 HPV Unspecified 2021-02 Completed [facility] -10 [facility] 00:00:0 Branch 0 HPV Unspecified 2021-02 Completed [facility] -10 [facility] 00:00:0 Branch 0 HPV Unspecified 2021-02 Completed [facility] -10 [facility] 00:00:0 Branch 0 HPV Unspecified 2021-02 Completed [facility] -10 [facility] 00:00:0 Branch 0 HPV Unspecified 2021-02 Completed [facility] -10 [facility] 00:00:0 Branch 0 HPV Unspecified 2021-02 Completed [facility] -10 [facility] 00[facility]00:0 Branch 0 HPV Unspecified 2021-02 Completed [facility] -10 [facility] 00:00:0 Branch 0 HPV Unspecified 2021-02 Completed [facility] -10 [facility] 00:00:0 Branch 0 HPV Unspecified 2021-02 Completed [facility] -10 [facility] 00:00:0 Branch 0 HPV Unspecified 2021-02 Completed [facility] -[facility] 00:00:0 Branch 0 HPV Unspecified 2021-02 Completed [facility] -[facility] 00:00:0 Branch 0 medroxyprogesterone ac medroxyprogesterone 2018-11 Completed [facility] 14:20:[address] medroxyprogesterone ac medroxyprogesterone 2018-08 Completed [facility] 11:38:[address] medroxyprogesterone ac medroxyprogesterone 2018-05 Com[facility] 15:13:[address] medroxyprogesterone ac medroxyprogesterone 2018-02 Completed [facility] 14:51:[address] Vital Signs Vital Name Observation Time Observation Value Comments Source Systolic blood 2022-06-29 16:03:00 101 mm[Hg] [facility] Diastolic blood 2022-06-29 16:03:00 66 [facility]Hg[facility]22-06-29 16:03:00 118 /min [facility] Body temperature 2022-06-29 16:03:[address] [facility] 2022-06-29 16:03:00 16 /min [facility] Body weight 2022-06-29 16:03:00 51.982 kg [facility] Oxygen saturation in 2022-06-29 16:03:00 100 /min [facility] Arterial blood by [facility] araseli Pulse oximetry Branch Systolic blood 2022-05-25 20:19:00 124 mm[Hg] Univer sity of pressure [facility] Diastolic blood 2022-05-25 20:19:00 79 mm[Hg] Unive rsity of pressure [facility] Heart rate 2022-05-25 20:19:00 69 /min [facility] Body temperature 2022-05-25 20:19:00 36.44 [place] Univ [facility] Respiratory rate 2022-05-25 20:19:00 16 /min Univ [facility] Body height 2022-05-25 20:19:00 162.6 cm [facility] Body weight 2022-05-25 20:19:00 53.071 kg [facility] BMI 2022-05-25 20:19:00 20.08 kg/m2 [facility] Systolic blood 2022-05-09 20:09:00 101 mm[Hg] Univer [facility]ity of pressure [facility] Diastolic blood 2022-05-09 20:09:00 65 mm[Hg] Unive rsity of pressure [facility] Heart rate 2022-05-09 20:09:00 85 /min [facility] Body temperature 2022-05-09 20:09:00 36.94 [place] Univ [facility] Respiratory rate 2022-05-09 20:09:00 16 /min Univ ers[facility] Body height 2022-05-09 20:09:00 162.6 cm [facility] Body weight 2022-05-09 20:09:00 50.86 kg [facility] BMI 2022-05-09 20:09:00 19.25 kg/m2 [facility] Oxygen saturation in 2022-05-09 20:09:00 98 /min [facility] Arterial blood by [facility] Pulse oximetry Branch Systolic blood 2022-04-15 15:38:00 110 mm[Hg] Univer sity of pressure [facility] Diastolic blood 2022-04-15 15:38:00 74 mm[Hg] Unive rsity of pressure [facility] Heart rate 2022-04-15 15:38:00 77 /min [facility]i ty of [facility] Body temperature 2022-04-15 15:38:00 37.94 [place] [address] [facility] Respiratory rate 2022-04-15 15:38:00 16 /min [facility] Body height 2022-04-15 15:38:00 162.[address] [facility] Body weight 2022-04-15 15:38:00 51[address] [facility] BMI 2022-04-15 15:38:00 19.59 kg/m2 [facility] Oxygen saturation in 2022-04-15 15:38:00 98 /min [facility] Arterial blood by [facility] Pulse oximetry Branch height 2021-12-18 08:00:00 63 [in_i] Common [facility] weight 2021-12-18 08:00:00 123.4 [lb_av] [facility] temperature 2021-12-18 08:00:00 97.8 [degF] Common [facility] bmi 2021-12-18 08:00:00 21.86 kg/m2 [facility] oximetry 2021-12-18 08:00:00 98 % [facility] respiratory rate 2021-12-18 08:00:00 16 /min [facility] blood pressure 2021-12-18 08:00:00 103 mm[Hg] Common [facility] - systolic [facility] blood pressure 2021-12-18 08:00:00 66 mm[Hg] [facility] - diastolic [facility] weight 2021-11-17 11:00:00 123.4 [lb_av] [facility] temperature 2021-11-17 11:00:00 97.9 [degF] Common [facility] bmi 2021-11-17 11:00:00 21.86 kg/m2 [facility] oximetry 2021-11-17 11:00:00 99 % [facility] respiratory rate 2021-11-17 11:00:00 16 /min [facility] blood pressure 2021-11-17 11:00:00 94 mm[Hg] Common [facility] - systolic [facility] blood pressure 2021-11-17 11:00:00 58 mm[Hg] Common [facility] - diastolic [facility] height 2021-11-17 11:00:00 63 [in_i] Common [facility] height 2021-03-17 08:20:00 63 [in_i] [facility] weight 2021-03-17 08:20:00 147 [lb_av] [facility] temperature 2021-03-17 08:20:00 97.9 [degF] [facility] bmi 2021-03-17 08:20:00 26.04 kg/m2 [facility] oximetry 2021-03-17 08:20:00 98 % [facility] respiratory rate 2021-03-17 08:20:00 16 /min [facility] blood pressure 2021-03-17 08:20:00 94 mm[Hg] Common [facility] - systolic [facility] blood pressure 2021-03-17 08:20:00 63 mm[Hg] Common [facility] - diastolic [facility] Systolic blood 2021-02-24 18:25:00 110 mm[Hg] [facility] Diastolic blood 2021-02-24 18:25:00 75 mm[Hg] [facility] Heart rate 2021-02-24 18:25:00 79 /min Universi ty [facility] Body temperature 2021-02-24 18:25:00 36.56 [place] [facility] [address] Respiratory rate 2021-02-24 18:25:00 18 /min [facility] Body height 2021-02-24 18:25:00 162.6 cm [facility] Body weight 2021-02-24 18:25:00 68.55 kg [facility] BMI 2021-02-24 18:25:00 25.94 kg/m2 Universi ty of [facility] Systolic blood 2021-01-21 16:04:00 117 mm[Hg] Univer sity of pressure [facility] Diastolic blood 2021-01-21 16:04:00 78 mm[Hg] Unive rsity of pressure [facility] Heart rate 2021-01-21 16:04:00 62 /min Universi ty of [facility] Body temperature 2021-01-21 16:04:00 36.94 [place] [address] [address] [facility] Respiratory rate 2021-01-21 16:04:00 18 /min Univ ersity of [facility] Body height 2021-01-21 16:04:00 162.[address] [facility] Body weight 2021-01-21 16:04:00 70.308 kg [facility] BMI 2021-01-21 16:04:00 26.61 kg/m2 Universi ty of [facility] Oxygen saturation in 2021-01-21 16:04:00 100 /min University Arterial blood by [facility] Pulse oximetry Branch Systolic blood 2021-01-02 15:43:00 110 mm[Hg] [facility] Diastolic blood 2021-01-02 15:43:00 72 mm[Hg] Unive rsity of pressure [facility] Heart rate 2021-01-02 15:43:00 73 /min Universi ty of [facility] Branch Body height 2021-01-02 15:43:00 162.[address] [facility] Body weight 2021-01-02 15:43:00 72.576 kg [facility] BMI 2021-01-02 15:43:00 27.46 kg/m2 Universi ty of [facility] Branch Systolic blood 2020-12-03 19:59:00 104 mm[Hg] [facility] Diastolic blood 2020-12-03 19:59:00 71 mm[Hg] Unive rsity of pressure [facility] Heart rate 2020-12-03 19:59:00 81 /min [facility]i ty of [facility] Body height 2020-12-03 19:59:00 162.[address] [facility] Body weight 2020-12-03 19:59:00 71[address] [facility] BMI 2020-12-03 19:59:00 27.12 kg/m2 [facility]i ty of [facility] Systolic blood 2020-11-26 16:37:00 112 mm[facility]Hg] [facility] Diastolic blood 2020-11-26 16:37:00 73 mm[Hg] [facility] Heart rate 2020-11-26 16:37:00 74 [facility] 2020-11-26 16:37:00 36.22 [facility] Body weight 2020-11-26 16:37:00 [facility]124 [facility] BMI 2020-11-26 16:37:00 26.91 [facility] Systolic blood 2020-11-26 16:37:00 112 mm[Hg] [facility] Diastolic blood 2020-11-26 16:37:00 73 mm[Hg] [facility] Heart rate 2020-11-26 16:37:00 74 [facility]min [facility] Body temperature 2020-11-26 16:37:00 36.22 [facility] Body weight 2020-11-26 16:37:00 [facility]124 [facility] BMI 2020-11-26 16:37:00 26.91 [facility] Systolic blood 2020-08-15 22:39:00 107 mm[Hg] Univer sity of pressure [facility] Diastolic blood 2020-08-15 22:39:00 75 mm[Hg] Unive rsity of pressure [facility] Heart rate 2020-08-15 22:39:00 99 /min [facility]i ty of [facility] Body temperature 2020-08-15 22:39:00 37.67 [place] [facility] Respiratory rate 2020-08-15 22:39:00 17 /min Univ ersity of [facility] Body height 2020-08-15 22:39:00 162.6 cm [facility] Body weight 2020-08-15 22:39:00 69.854 kg [facility] BMI 2020-08-15 22:39:00 26.43 kg/m2 Universi ty [facility] Oxygen saturation in 2020-08-15 22:39:00 98 /min [facility] Arterial blood by [facility] Pulse oximetry Branch Systolic blood 2020-02-21 20:27:00 107 mm[Hg] Univer sity of pressure [facility] Diastolic blood 2020-02-21 20:27:00 67 mm[Hg] [facility]ive [facility]ity of [facility] Heart rate 2020-02-21 20:27:00 80 /min [facility]i ty of [facility] Body temperature 2020-02-21 20:27:00 36.67 [place] [facility] Respiratory rate 2020-02-21 20:27:00 16 /min [facility] Body height 2020-02-21 20:27:00 160 [address] [facility] Body weight 2020-02-21 20:27:00 72[address] [facility] BMI 2020-02-21 20:27:00 28.34 kg/m2 Universi ty [facility] blood pressure, 2019-09-25 08:56:28 76 mm[Hg] [facility] blood pressure, 2019-09-25 08:56:28 114 mm[Hg] [facility] systolic Health pulse rate 2019-09-25 08:56:28 78 /min [facility] weight in kilograms 2019-09-25 08:56:28 [facility]&M 2019-09-25 08:56:28 155.54 [lb_av] [facility] 2019-09-25 08:56:28 63.39 [in_i] [facility] weight percentile 2019-09-25 08:56:28 88 [facility] height percentile 2019-09-25 08:56:28 [facility] Body Mass Index 2019-09-25 08:56:28 27.31 kg/m2 [facility] ([facility] BMI (body mass 2019-09-25 08:56:28 91 % [facility] index) percentile Health blood pressure, 2019-07-31 13:47:58 69 mm[facility]Hg] [facility] blood pressure, 2019-07-31 13:47:58 107 mm[Hg] [facility] pulse rate 2019-07-31 13:47:58 81 /min [facility] weight in kilograms 2019-07-31 13:47:58 69.7 kg L [facility] E&M Health weight E&M 2019-07-31 13:47:58 153.34 [lb_av] [facility]M 2019-07-31 13:47:58 63.07 [in_i] [facility] weight percentile 2019-07-31 13:47:58 87 Leg [facility] Health height percentile 2019-07-31 13:47:58 33 Leg [facility] Health Body Mass Index 2019-07-31 13:47:58 27.20 kg/m2 [facility] (Ratio) Health BMI (body mass 2019-07-31 13:47:58 90 % [facility] index) percentile Health weight E&M 2019-03-22 13:55:03 147 [lb_av] [facility] weight in kilograms 2019-03-22 13:55:03 66.82 kg L [facility]M Health height E&M 2019-03-22 13:55:03 63 [in_i] [facility] weight percentile 2019-03-22 13:55:03 84 [facility] Health height percentile 2019-03-22 13:55:03 32 [facility] Health BMI (body mass 2019-03-22 13:55:03 88 % [facility] index) percentile Health Body Mass Index 2019-03-22 13:55:03 26.13 kg/m2 [facility] (Ratio) Health blood pressure, 2018-12-21 10:52:09 75 mm[Hg] [facility] blood pressure, 2018-12-21 10:52:09 110 mm[Hg] [facility] pulse rate 2018-12-21 10:52:09 76 /min [facility] weight in kilograms 2018-12-21 10:52:09 66.9 kg L [facility]M Health weight E&M 2018-12-21 10:52:09 147.18 [lb_av] [facility] Health height E&M 2018-12-21 10:52:09 63.19 [in_i] [facility] weight percentile 2018-12-21 10:52:09 84 [facility] Health height percentile 2018-12-21 10:52:09 36 [facility] Body Mass Index 2018-12-21 10:52:09 26.01 kg/m2 [facility] (Ratio) Health BMI (body mass 2018-12-21 10:52:09 88 % [facility] index) percentile Health blood pressure, 2018-10-03 11:15:46 76 mm[Hg] [facility] blood pressure, 2018-10-03 11:15:46 110 mm[Hg] [facility] systolic Health pulse rate 2018-10-03 11:15:46 80 /min [facility] weight E&M 2018-10-03 11:15:46 137 [lb_av] [facility] weight in kilograms 2018-10-03 11:15:46 62.27 kg L [facility] Health height E&M 2018-10-03 11:15:46 63 [in_i] [facility] weight percentile 2018-10-03 11:15:46 76 [facility] Health height percentile 2018-10-03 11:15:46 33 [facility] Health Body Mass Index 2018-10-03 11:15:46 24.36 kg/m2 [facility] (Ratio) Health BMI (body mass 2018-10-03 11:15:46 82 % [facility] Health blood pressure, 2018-08-28 10:51:43 69 mm[Hg] [facility] blood pressure, 2018-08-28 10:51:43 105 mm[Hg] [facility] systolic Health pulse rate 2018-08-28 10:51:43 77 /min [facility] weight in kilograms 2018-08-28 10:51:43 59.3 kg L [facility]M Health weight E&M 2018-08-28 10:51:43 130.46 [lb_av] [facility] Health height E&M 2018-08-28 10:51:43 63.19 [in_i] [facility] weight percentile 2018-08-28 10:51:43 68 [facility] Health height percentile 2018-08-28 10:51:43 36 [facility] Body Mass Index 2018-08-28 10:51:43 23.05 kg/m2 [facility] (Ratio) Health BMI (body mass 2018-08-28 10:51:43 74 % [facility] index) percentile Health blood pressure, 2018-07-26 11:01:58 72 mm[Hg] [facility] diastolic Health blood pressure, 2018-07-26 11:01:58 106 mm[Hg] [facility] systolic Health pulse rate 2018-07-26 11:01:58 75 /min [facility] Health weight in kilograms 2018-07-26 11:01:58 57.9 kg L [facility] E[facility]M Health weight E&M 2018-07-26 11:01:58 127.38 [lb_av] [facility] Health height E&M 2018-07-26 11:01:58 62.80 [in_i] [facility] weight percentile 2018-07-26 11:01:58 63 [facility] Health height percentile 2018-07-26 11:01:58 31 [facility] Health Body Mass Index 2018-07-26 11:01:58 22.79 kg/m2 [facility] (Ratio) Health BMI (body mass 2018-07-26 11:01:58 72 % [facility] index) percentile Health blood pressure, 2018-05-23 13:21:10 74 mm[Hg] [facility] diastolic Health blood pressure, 2018-05-23 13:21:10 108 mm[Hg] [facility] systolic Health pulse rate 2018-05-23 13:21:10 96 /min [facility] weight in kilograms 2018-05-23 13:21:10 56 kg L [facility] E[facility]M Health weight E&M 2018-05-23 13:21:10 123.20 [lb_av] [facility] Health height E&M 2018-05-23 13:21:10 63.39 [in_i] [facility] weight percentile 2018-05-23 13:21:10 57 Leg [facility] Health height percentile 2018-05-23 13:21:10 40 Leg [facility] Health Body Mass Index 2018-05-23 13:21:10 21.63 kg/m2 [facility] BMI (body mass 2018-05-23 13:21:10 62 % [facility] index) percentile Health blood pressure, 2018-03-21 14:25:49 66 mm[Hg] [facility] blood pressure, 2018-03-21 14:25:49 98 mm[Hg] [facility] Health pulse rate 2018-03-21 14:25:49 66 /min [facility] weight E&M 2018-03-21 14:25:49 114 [lb_av] [facility] weight in kilograms 2018-03-21 14:25:49 51.82 kg L [facility] E[facility]M Health height E&M 2018-03-21 14:25:49 63 [in_i] [facility] weight percentile 2018-03-21 14:25:49 39 [facility] Health height percentile 2018-03-21 14:25:49 34 [facility] BMI (body mass 2018-03-21 14:25:49 47 % [facility] index) percentile Health Body Mass Index 2018-03-21 14:25:49 20.27 kg/m2 [facility] (Ratio) Health blood pressure, 2018-02-28 14:24:45 70 mm[Hg] [facility] blood pressure, 2018-02-28 14:24:45 103 mm[Hg] [facility] systolic Health pulse rate 2018-02-28 14:24:45 87 /min [facility] weight in kilograms 2018-02-28 14:24:45 51.4 kg L [facility] E&M Health weight E&M 2018-02-28 14:24:45 113.08 [lb_av] [facility] Health height E&M 2018-02-28 14:24:45 62.80 [in_i] [facility] weight percentile 2018-02-28 14:24:45 38 Leg [facility] Health height percentile 2018-02-28 14:24:45 32 [facility] BMI (body mass 2018-02-28 14:24:45 46 % [facility] index) percentile Health Body Mass Index 2018-02-28 14:24:45 20.23 kg/m2 [facility] blood pressure, 2018-01-17 10:49:12 70 mm[Hg] [facility] blood pressure, 2018-01-17 10:49:12 107 mm[Hg] [facility] pulse rate 2018-01-17 10:49:12 76 /min [facility] weight E&M 2018-01-17 10:49:12 97.46 [lb_av] [facility] Health weight in kilograms 2018-01-17 10:49:12 44.30 kg L [facility] E&M Health height E&M 2018-01-17 10:49:12 63.07 [in_i] [facility] 2018-01-17 10:49:12 8 [facility] Health height percentile 2018-01-17 10:49:12 36 [facility] BMI (body mass 2018-01-17 10:49:12 9 % [facility] index) percentile Health Body Mass Index 2018-01-17 10:49:12 17.29 kg/m2 [facility] blood pressure, 2017-12-13 11:14:55 73 mm[Hg] [facility] blood pressure, 2017-12-13 11:14:55 113 mm[Hg] [facility] pulse rate 2017-12-13 11:14:55 60 /min [facility] weight in kilograms 2017-12-13 11:14:55 50.4 kg L [facility] E&M Health weight E&M 2017-12-13 11:14:55 110.88 [lb_av] [facility] Health height E&M 2017-12-13 11:14:55 62.80 [in_i] [facility] weight percentile 2017-12-13 11:14:55 34 [facility] Health height percentile 2017-12-13 11:14:55 32 [facility] BMI (body mass 2017-12-13 11:14:55 42 % [facility] index) percentile Health Body Mass Index 2017-12-13 11:14:55 19.84 kg/m2 [facility] blood pressure, 2017-11-01 09:40:55 69 mm[Hg] [facility] blood pressure, 2017-11-01 09:40:55 106 mm[Hg] [facility] Health pulse rate 2017-11-01 09:40:55 75 /min [facility] weight E&M 2017-11-01 09:40:55 109.40 [lb_av] [facility] Health weight in kilograms 2017-11-01 09:40:55 49.73 kg L [facility] E&M Health height E&M 2017-11-01 09:40:55 62.75 [in_i] [facility] 2017-11-01 09:40:55 32 [facility] Health height percentile 2017-11-01 09:40:55 32 [facility] Health BMI (body mass 2017-11-01 09:40:55 40 % [facility] index) percentile Health Body Mass Index 2017-11-01 09:40:55 19.60 kg/m2 [facility] (Ratio) Health blood pressure, 2017-09-06 09:48:08 66 mm[Hg] [facility] blood pressure, 2017-09-06 09:48:08 103 mm[Hg] [facility] systolic Health pulse rate 2017-09-06 09:48:08 71 /[facility] weight in kilograms 2017-09-06 09:48:08 48.7 kg L [facility] E[facility]M Health weight E&M 2017-09-06 09:48:08 107.14 [lb_av] [facility] Health height E&M 2017-09-06 09:48:08 62.72 [in_i] [facility] weight percentile 2017-09-06 09:48:08 28 Leg [facility] Health height percentile 2017-09-06 09:48:08 32 [facility] Health BMI (body mass 2017-09-06 09:48:08 35 % [facility] index) percentile Health Body Mass Index 2017-09-06 09:48:08 19.22 kg/m2 [facility] Health blood pressure, 2017-08-11 13:13:08 65 mm[Hg] [facility] diastolic Health blood pressure, 2017-08-11 13:13:08 101 mm[Hg] [facility] systolic Health pulse rate 2017-08-11 13:13:08 68 /min [facility] weight in kilograms 2017-08-11 13:13:08 47.5 kg L [facility] E&M Health weight E&M 2017-08-11 13:13:08 104.50 [lb_av] [facility] Health height E&M 2017-08-11 13:13:08 61.81 [in_i] [facility] weight percentile 2017-08-11 13:13:08 24 [facility] height percentile 2017-08-11 13:13:08 21 [facility] BMI (body mass 2017-08-11 13:13:08 37 % [facility] index) percentile Health Body Mass Index 2017-08-11 13:13:08 19.30 kg/m2 [facility] (Ratio) Health blood pressure, 2017-07-06 10:52:10 68 mm[Hg] [facility] diastolic Health blood pressure, 2017-07-06 10:52:10 105 mm[Hg] [facility] systolic Health pulse rate 2017-07-06 10:52:10 61 /min [facility] weight in kilograms 2017-07-06 10:52:10 48.5 kg L [facility] E& Health weight E&M 2017-07-06 10:52:10 106.70 [lb_av] [facility] height E&M 2017-07-06 10:52:10 62.99 [in_i] [facility] weight percentile 2017-07-06 10:52:10 29 [facility] height percentile 2017-07-06 10:52:10 36 [facility] BMI (body mass 2017-07-06 10:52:10 33 % [facility] Community index) percentile Health Body Mass Index 2017-07-06 10:52:10 18.98 kg/m2 [facility] (Ratio) Health Procedures Procedure Date / Time Performing Clinician Source Performed POCT MOLECULAR FLU 2022-06-29 16:00:00 Unknown, Attending [facility] POCT MOLECULAR STREP 2022-06-29 15:58:00 Unknown, Attending [facility] [employer] 2022-06-17 15:31:24 Maria R Laurenyao [facility] POCT MOLECULAR STREP 2022-04-15 15:40:00 Orlando Whitmore [facility] ASSIGNMENT OF BENEFITS 2022-04-15 15:33:07 [facility] ASSIGNMENT OF BENEFITS 2021-02-24 18:07:38 [facility] POCT GRP A STREP 2021-01-21 16:13:00 Luciana Hammond [facility] (MOLECULAR) [facility] REFERRAL- 2020-11-28 05:01:00 Doctor Unassigned, [facility] REQUEST/RESPONSE [facility] [place] COVID-19 (MOLECULAR 2020-08-15 22:27:00 Layton Menchaca [facility] TESTING [facility] NUCLEIC ACID AMPLIFICATION) LAB ONLY COVID 2020-08-15 22:27:00 [facility] INTERPRETATION [facility] POCT FLU A AND B 2020-08-15 00:00:00 Gisela Frey [facility] (MOLECULAR) Medical Branch Behavioral Health - 2020-07-17 09:29:21 Jeff Heck ommunity Psychological Testing Health POCT TEST 2020-02-21 20:30:00 Philly Mobley [facility] Behavioral Health - 2020-02-14 08:56:43 Jeff Heck C ommunity Psychological Testing Health [employer] 2019-09-25 10:08:38 Jeff Heck Commu nitvashti Health [employer] 2018-07-31 03:44:47 Jeff Heck Commmerissa nitvashti Health Interactive Complexity 2017-07-11 16:44:55 Jeff Heck y Community Add-On - 98395 Health Diagnostic evaluation 2017-07-11 16:44:55 Jeff Heck Community with medical - 05127 Health Encounters Start End Encounter Admission Attending Care Care Encounter Source Date/Time Date/Time Type Type Clinicians Facility Department ID 2022-09-20 [email or web address] [id number] Legacy 10:49:00 [facility] 2022-09-11 [email or web address] [id number] Legacy 13:20:33 [facility] 2022-08-04 [email or web address] [id number] Legacy 14:35:09 [id number] [facility] 2022-07-16 [facility] [id number] Legacy 15:29:01 [facility] 2022-06-15 [facility] [id number] Legacy 13:37:04 [facility] 2022-06-14 [facility] [id number] Legacy 14:23:03 [facility] 2022-05-16 [facility] [id number] Legacy 20:03:03 [facility] 2022-05-10 [facility] [id number] Legacy 10:39:06 [facility] 2021-08-12 Outpatient [place], STLMLC STLMLC [id number] Common 14:39:26 [facility] 2021-08-12 Outpatient [place], STLMLC STLMLC [id number] Common 13:47:07 Mary Carmen [id number] [facility] 2021-08-12 Outpatient [place], STLMLC STLMLC [id number] Common 13:27:03 Mary Carmen [id number] [facility] 2021-08-12 Outpatient [place], STLMLC STLMLC [id number] Common 11:36:12 Mary Carmen [id number] [facility] 2021-08-12 Outpatient [place], STLMLC STLMLC [id number] Common 11:33:11 Mary Carmen 12920 [facility] 2020-11-26 Outpatient JONN [facility] [id number] [place] 11:57:22 [facility] 2022-11-11 2022-11-11 Outpatient R UNKNOWN, [facility] [id number] Univers 09:20:00 09:20:00 ATTENDING ity [facility] 2022-10-12 2022-10-12 Outpatient R KATHLEEN, [facility] [id number] Univers 14:00:00 14:00:00 [facility] 2022-08-25 2022-08-25 Outpatient R LEANDRA, [facility] [id number] Univers 09:30:00 09:30:00 PHILLY tiffanie o f [facility] 2022-08-05 2022-08-05 In-person Maria R [facility] Enco unter/ Legacy 00:00:00 00:00:00 encounter [facility] [id number] Replaced By [facility] [id number] [facility] 2022-08-05 2022-08-05 In-person Maira R [facility] 5418 45-202 Legacy 00:00:00 00:00:00 encounter [facility] 22962 C [facility] 2022-06-29 2022-06-29 Sr. Consultant Lab, Ang - Db [facility] 1.2.840.1 14 [id number] Univers 10:45:00 11:00:00 Visit Unknown, Attending HEALTH 350.1.13.10 ity Gisela Montez 4.2.7.2.686 [place] STEVENSON?BLEA [phone] Ms raz [facility] [address] MEDICAL OFFICE [facility] 2022-06-29 2022-06-29 Outpatient R TK [facility] [id number] Univers 09:40:00 10:38:[address] [facility] 2022-06-29 2022-06-29 Urgent Gisela Frey [facility] 1.2.840 .114 [id number] Univers 09:40:00 10:38:08 Care Unknown, Attending HEALTH 350.1.13.10 Jemima 4.2.7.2.686 Mahendra as STEVENSON?BLEA [phone] [facility] [address] [place] MEDICAL OFFICE [facility] 2022-06-29 2022-06-29 Telephone [facility] [id number] Univers 00:00:00 00:00:00 [facility] [id number] ity of [place] 4.2.7.2.686 Mahendra as STEVENSON?BLEA [phone] [address] 2022-06-29 2022-06-29 Letter [facility] 1.2.840.114 [id number] Univers 00:00:00 00:00:00 (Out) [facility] 350.1.13.10 ity of [place] 4.2.7.2.686 Mahendra as STEVENSON?BLEA [phone] [address] 2022-06-17 2022-06-17 In-person Maria R [facility] Enco unter/ Legacy 00:00:00 00:00:00 encounter [facility] [id number] Replaced By [facility] [id number] [facility] 2022-06-17 2022-06-17 In-person Maria R [facility] 5418 Legacy 00:00:00 00:00:00 encounter [facility] 76062 C [facility] 2022-05-25 2022-05-25 Outpatient R [facility] [id number] Univers 14:00:00 15:12:[address] [facility] 2022-05-25 2022-05-25 Office [facility] 1.2.070.037 [id number] Univers 14:00:00 15:12:05 Visit Philly Pimentel [employer] 350.1.13.10 ity [facility] 4.2.7.2.686 Mahendra as MATERNAL [phone] [facility] ical & CHILD [address] [place] [address] 2022-05-11 2022-05-16 In-person Maria R [facility] 5418 [id number] Legacy 00:00:00 00:00:00 encounter [facility] 17450 C flux - neutrinity [employer] [facility] 2022-05-11 2022-05-16 In-person Maria R [facility] Enco unter/ Legacy 00:00:00 00:00:00 encounter [facility] [id number] Replaced By [facility] [id number] [facility] 2022-05-09 2022-05-09 Outpatient R TK [facility] [id number] Univers 15:00:00 15:40:42 GISELA moreno o f [facility] 2022-05-09 2022-05-09 Urgent Anat Freypeg Harding [facility] 1.2.840 .114 [id number] Univers 15:00:00 15:40:42 Care [facility] 350.1.13.10 ity of [place] 4.2.7.2.686 Mahendra as STEVENSON?BLEA [phone] [address] OFFICE [facility] 2022-05-09 2022-05-09 Letter LAYTON Marinelli 1.2.840.114 [id number] Univers 00:00:00 00:00:00 (Out) Ese [place] 350.1.13.10 it y of [facility] 4.2.7.2.686 Mahendra as [phone] [address] 2022-05-09 2022-05-09 Letter [facility] 1.2.840.114 [id number] Univers 00:00:00 00:00:00 (Out) Gisela [facility] 350.1.13.10 ity of [place] 4.2.7.2.686 Mahendra as STEVENSON?BLEA [phone] [address] OFFICE [facility] 2022-04-15 2022-04-15 Urgent Yossi Wild [facility] 1.2.840.114 [id number] Univers 11:00:00 11:20:00 Care Orlando Whitmore [facility] 350.1.13.10 ity of [place] 4.2.7.2.686 Mahendra as STEVENSON?BLEA [phone] [address] OFFICE [facility] 2022-04-15 2022-04-15 Outpatient R SATISH [facility] [id number] Univers 11:00:00 11:10:15 YOSSI itvashti [facility] 2022-04-15 2022-04-15 Orders Doctor TRAYLOR 1.2.840.114 [id number] Univers 00:00:00 00:00:00 Only Unassigned, SIDRA 350.1.13.10 ity of [place] [facility] 4.2.7.2.686 Mahendra as [phone] [address] 2022-03-30 2022-04-03 Office Maria R [facility] Encounter/ Legacy 00:00:00 00:00:00 Visit Jeff [id number] Com isaac 707275 ty Health 2022-03-30 2022-04-03 In-person Maria R [place] [address] 45-202 Legacy 00:00:00 00:00:00 encounter [facility] 21427 C [facility] ty Health 2022-03-02 2022-03-02 Office Maria R [facility] Encounter/ Legacy 00:00:00 00:00:00 Visit Jeff [id number] Com isaac 241608 ty Health 2022-03-02 2022-03-02 In-person Maria R [place] [address] 45-202 Legacy 00:00:00 00:00:00 encounter [facility] 23256 C [facility] Health ty Health 2022-02-24 2022-02-24 Office Maria R [facility] Encounter/ Legacy 00:00:00 00:00:00 Visit Jeff [id number] Com isaac 928167 ty Health 2022-02-24 2022-02-24 In-person Maria R [place] [address] 45-202 Legacy 00:00:00 00:00:00 encounter [facility] 85043 C [facility] ty Health 2021-12-29 2021-12-29 Office Maria R [facility] Encounter/ Legacy 00:00:00 00:00:00 Visit Jeff [id number] Com isaac 861029 ty Health 2021-12-29 2021-12-29 In-person [place] [address] 45-202 Legacy 00:00:00 00:00:00 encounter [facility] 94093 C [facility] ty Health 2021-12-18 2021-12-18 [facility] [id number] Co mmon 00:00:00 00:00:00 VISIT Ronal AMADOR PT - CHI LEVEL 2 [facility] 2021-11-17 2021-11-17 OFFICE [facility] [id number] Co mmon 00:00:00 00:00:00 VISIT EST Spir it PT LEVEL 3 - [facility] 2021-10-20 2021-10-20 Office Heck, [facility] Encounter/ Legacy 00:00:00 00:00:00 Visit Shetal [id number] Com isaac 479950 ty Health 2021-10-20 2021-10-20 In-person Heck, [place] [address] 45-202 Legacy 00:00:00 00:00:00 encounter [facility] 61040 C [facility] ty Health 2021-07-21 2021-07-21 [facility]/ Legacy 00:00:00 00:00:00 Visit Shetal [id number] Com isaac 073290 ty Health 2021-07-21 2021-07-21 In-person Heck, [place] [address] 45202 Legacy 00:00:00 00:00:00 encounter [facility]al 88290 C [facility] ty Health 2021-05-19 2021-05-19 [facility] En[facility]/ Legacy 00:00:00 00:00:00 Visit Shetal [id number] Com isaac 296050 ty Health 2021-05-19 2021-05-19 In-person Heck, [place] [address] 45-202 Legacy 00:00:00 00:00:00 encounter [facility] 29331 C [facility] ty Health 2021-04-20 2021-04-20 Letter LAYTON Paniagua 1.2.840.114 [id number] Univers 00:00:00 00:00:00 (Out) Maddie VALENTE 350.1.13.10 it y of [facility] 4.2.7.2.686 Mahendra as [phone] [address] 2021-04-19 2021-04-19 Laboratory Only, Ang Db Test [facility] 1.2.8 40.114 [id number] Univers 12:12:14 12:27:14 Only Kathleen [facility] 350.1.13.10 ity of [place] 4.2.7.2.686 Mahendra as [place]?Blea [phone] Ms raz [address] Medical Office [facility] 2021-04-19 2021-04-19 Outpatient Moe WANG [facility] [id number] Univers 12:15:00 12:15:00 ISA moreno [facility] 2021-04-07 2021-04-11 Office Maria R [facility] Encounter/ Legacy 00:00:00 00:00:00 Visit Jeff [id number] Com isaac [id number] [facility] 2021-04-07 2021-04-11 In-person Maria R [place] [id number] 45-202 Legacy 00:00:00 00:00:00 encounter [facility] 65185 C ommuni [facility] 2021-03-17 2021-03-17 PREV VISIT STLC STLC [id number] Common 00:00:00 00:00:00 EST AGE Spirit 18-39 - [facility] 2021-02-25 2021-02-26 Office [facility] Encounter/ Legacy 00:00:00 00:00:00 Visit Jeff [id number] Com isaac [id number] [facility] 2021-02-25 2021-02-26 In-person [place] [id number] 45-202 Legacy 00:00:00 00:00:00 encounter Laurental Behavioral 63968 C [facility] 2021-02-24 2021-02-24 Office [facility] 1.2.727.097 [id number] Univers 13:06:49 13:59:44 Visit Philly Pimentel [employer]END[employer] 350.1.13.10 tiffanie [facility] 4.2.7.2.686 Mahendra as MATERNAL [phone] Med ical & CHILD [address] [place] [address] 2021-02-24 2021-02-24 Outpatient Moe MOBLEY [facility] [id number] Univers 13:15:00 13:15:[address] [facility] 2021-02-24 2021-02-24 Orders Doctor LAYTON 1.2.840.114 [id number] Univers 00:00:00 00:00:00 Only Unassigned, SIDRA 350.1.13.10 ity of [place] [facility] 4.2.7.2.686 Mahendra as [phone] [address] 2021-02-17 2021-02-17 Outpatient R SATISH [facility] [id number] Univers 18:20:00 18:20:00 YOSSI ity [facility] 2021-02-17 2021-02-17 Laboratory Lab, [facility] Pob I [facility] 1.2. 840.114 [id number] Univers 17:55:38 18:15:38 Only Green, Y[facility] 350.1.13.10 ity of [place] 4.2.7.2.686 Mahendra as Professio [phone] [address] One 2021-02-12 2021-02-12 Refill Leandra [facility] 1.2.541.400 [id number] Univers 00:00:00 00:00:00 Philly Pimentel [employer] 350.1.13.[address] [facility] 4.2.7.2.686 Mahendra as MATERNAL [phone] Med ical & CHILD [address] [place] [address] 2021-02-05 2021-02-05 Letter Lab, [facility] 1.2.840.114 [id number] Univers 00:00:00 00:00:00 (Out) [facility] Pob I Health 350.1.13.10 ity of [place] 4.2.7.2.686 Mahendra as Professio [phone] [address] 2021-02-03 2021-02-03 Laboratory Lab, [facility] Pob I [facility] 1.2. 840.114 [id number] Univers 16:46:50 17:06:50 Only Green, [facility] 350.1.13.10 ity of [place] 4.2.7.2.686 Mahendra as Professio [phone] [address] 2021-02-03 2021-02-03 Outpatient R SATISH [facility] [id number] Univers 17:00:00 17:00:00 YOSSI ity [facility] 2021-01-21 2021-01-25 Office Heck, [facility] Encounter/ Legacy 00:00:00 00:00:00 Visit Jeff [id number] [facility] isaac [id number] [facility] 2021-01-21 2021-01-25 In-person Maria R ANA Jeannette [place] 5418 45202 Legacy 00:00:00 00:00:00 encounter Jeff Behavioral 50971 [facility] 2021-01-21 2021-01-21 Urgent Provider, [facility] 1.2.840.114 [id number] Univers 11:00:07 11:20:07 Care Luciana Hammond [facility] 350.1.13.10 ity of [place] 4.2.7.2.686 Mahendra as Professio [phone] Ms dical nal 044 [facility] One 2021-01-21 2021-01-21 Outpatient [facility] [id number] Univers 11:00:00 11:00:00 LUCIANA morneo [facility] 2021-01-16 2021-01-16 Telephone [facility] 1.2.615.975 [id number] Univers 00:00:00 00:00:00 [facility] 350.1.13.10 ity of Surgical 4.2.7.2.686 Mahendra as Specialti [phone] Ms dical es [address] [facility] 2021-01-16 2021-01-16 Letter [facility] 1.2.840.114 [id number] Univers 00:00:00 00:00:00 (Out) [facility] 350.1.13.10 ity of Surgical 4.2.7.2.686 Mahendra as Specialti [phone] Ms dical es [address] [facility] 2021-01-15 2021-01-15 Laboratory Lab, Adc Fam Pob I [facility] 1.2. 840.114 [id number] Univers 20:07:48 20:27:48 Only Radha Gusman [facility] 350.1.13.10 ity of [place] 4.2.7.2.686 Mahendra as Professio [phone] Ms dical nal 044 [facility] One 2021-01-15 2021-01-15 Outpatient R RADHA GUSMAN [facility] [id number] Univers 20:20:00 20:20:00 [facility] 2021-01-02 2021-01-02 Office Frank [facility] 1.2.840.114 [id number] Univers 10:41:42 10:56:42 Visit [facility] 350.1.13.10 it y of Surgical 4.2.7.2.686 Mahendra as Specialti [phone] Ms dical es [address] [place] [address] 2021-01-02 2021-01-02 Outpatient R FRANK [facility] [id number] Univers 10:45:00 10:45:00 [facility] 2021-01-02 2021-01-02 Letter [facility] 1.2.840.114 [id number] Univers 00:00:00 00:00:00 (Out) [facility] 350.1.13.10 it y of Surgical 4.2.7.2.686 Mahendra as Specialti [phone] Ms israel[address] 2021-01-01 2021-01-01 Outpatient R DIGNA [facility] [id number] Univers 13:30:00 13:30:00 ROXANNE tiffanie [facility] 2021-01-01 2021-01-01 Telephone Digna [facility] 1.2.840.114 [id number] Univers 00:00:00 00:00:00 Roxanne Esquivel [employer] 350.1.13.10 it y of REGIONAL 4.2.7.2.686 Mahendra as MATERNAL [phone] Med ical & CHILD [address] [place] [address] 2020-12-23 2020-12-23 Office DARIO Heck Encounter/ Legacy 00:00:00 00:00:00 Visit Jeff [id number] Com isaac [id number] [facility] 2020-12-23 2020-12-23 In-person DARIO Heck [place] 5418 [id number] Legacy 00:00:00 00:00:00 encounter Jeff Behavioral 76020 C [facility] 2020-12-03 2020-12-03 Office [facility] 1.2.840.114 [id number] Univers 14:41:38 14:56:38 Visit [facility] 350.1.13.10 it y of Surgical 4.2.7.2.686 Mahendra as Specialti [phone] Ms dical es [address] [facility] 2020-12-03 2020-12-03 Outpatient R FRANK [facility] [id number] Univers 14:45:00 14:45:[address] [facility] 2020-12-03 2020-12-03 Letter Frank [facility] 1.2.840.114 [id number] Univers 00:00:00 00:00:00 (Out) [facility] 350.1.13.10 it y of Surgical 4.2.7.2.686 Mahendra as Specialti [phone] Ms dical es [address] [facility] 2020-11-28 2020-11-28 Orders Doctor LAYTON 1.2.840.114 [id number] Univers 00:00:00 00:00:00 Only Unassigned, SIDRA 350.1.13.10 ity of [place] [facility] 4.2.7.2.686 Mahendra as [phone] [address] 2020-11-26 2020-11-26 Office Jonn, SHAHEED 1.2.840.114 [id number] [place] 11:20:28 11:56:05 Visit Isa [place] 350.1.13.58 [facility] 9.2.7.2.686 MULTI [id number] SPECIALTY 4 2020-11-26 2020-11-26 Office Jonn, SHAHEED 1.2.840.114 [id number] 11:20:28 11:56:05 Visit Isa [place] 350.1.13.58 [facility] 9.2.7.2.686 MULTI [phone] SPECIALTY 4 2020-11-26 2020-11-26 Outpatient STLMLC STLMLC [id number] Common 00:00:00 00:00:00 [facility] 2020-11-25 2020-11-25 Outpatient STLMLC STLMLC [id number] Common 00:00:00 00:00:00 [facility] 2020-11-20 2020-11-20 Outpatient STLMLC STLMLC [id number] Common 00:00:00 00:00:00 [facility] 2020-11-20 2020-11-20 Outpatient STLC STLC [id number] Common 00:00:00 00:00:00 [facility] 2020-11-20 2020-11-20 Outpatient STLC STLC [id number] Common 00:00:00 00:00:00 [facility] 2020-11-19 2020-11-19 Office Maria R [facility] Encounter/ Legacy 00:00:00 00:00:00 Visit Shetal [id number] Com isaac [id number] Health 2020-11-19 2020-11-19 In-person Maria R [place] [address] 45-202 Legacy 00:00:00 00:00:00 encounter [facility] 54979 C [facility] Health ty Health 2020-10-21 2020-10-21 In-person Maria R [place] [address] 45-202 Legacy 00:00:00 00:00:00 encounter [facility] 29664 C om[facility]i Health ty Health 2020-10-21 2020-10-21 Office Maria R [facility] Encounter/ Legacy 00:00:00 00:00:00 Visit Shetal [id number] Com isaac [id number] ty Health 2020-10-06 2020-10-06 Outpatient ARROYO, MHHH M[facility] [id number] [facility] 11:32:00 12:20:00 JOLLEY 2020-08-25 2020-08-25 Outpatient BEHAZIN, MHFB MHFB [id number] MHFB 07:46:00 10:40:00 ISA 2020-08-24 2020-08-24 Office Maria R [facility] Encounter/ Legacy 00:00:00 00:00:00 Visit Shetal [id number] Com isaac 947922 ty Health 2020-08-20 2020-08-24 In-person Maria R [place] [address] 45-202 Legacy 00:00:00 00:00:00 encounter [facility] 49355 C om[facility]i Health ty Health 2020-08-20 2020-08-20 Office Maria R [facility] Encounter/ Legacy 00:00:00 00:00:00 Visit Jeff [id number] Com isaac [id number] Health 2020-08-15 2020-08-15 Urgent Provider, [facility] 1.2.840.114 [id number] Univers 16:21:48 17:52:11 Care Gisela Frey [facility] 350.1.13.10 ity [facility] 4.2.7.2.686 Mahendra as Professio [phone] Ms dic[address] Office [facility] One 2020-08-15 2020-08-15 Outpatient R [facility] [id number] Univers 16:20:00 16:20:[facility] 2020-07-15 2020-07-17 In-person Jeff Heck [facility] [id number] Legacy 00:00:00 00:00:00 encounter Anastasia Rodriguez [facility]al 54561 Blanka Richey [facility] 2020-07-15 2020-07-15 Office Maria R [facility] Encou nter/ Legacy 00:00:00 00:00:00 Visit Anastasia Rodriguez [id number] Yulia Michelleca 332779 Health 2020-05-13 2020-05-16 In-person Maria R [facility] 5418 45-202 Legacy 00:00:00 00:00:00 encounter Jeff Behavioral 10970 C ommuni Health ty Health 2020-05-13 2020-05-13 [facility] Encou nter/ Legacy 00:00:00 00:00:00 Visit Jimenez Bahena [id number] Jacintoi 316542 ty Health 2020-05-13 2020-05-13 Office Maria R [facility] Encounter/ Legacy 00:00:00 00:00:00 Visit Jeff [id number] Com isaac 964626 ty Health 2020-05-13 2020-05-13 [facility] Encou nter/ Legacy 00:00:00 00:00:00 Visit Tasneem Martínez 1917 Communi 452443 ty Health 2020-04-09 2020-04-09 Office Mauricio [facility] Encounter/ Legacy 00:00:00 00:00:00 Visit Tasneem [id number] C ommuni 263208 ty Health 2020-04-08 2020-04-08 Office [facility] En[facility]/ Legacy 00:00:00 00:00:00 Visit Jeff [id number] Com isaac 669755 ty Health 2020-04-08 2020-04-08 In-person Maria R [place] [address] 45-202 Legacy 00:00:00 00:00:00 encounter Jeff Behavioral 71751 C ommuni Health ty Health 2020-03-29 2020-03-29 Office Maria [facility] Encounter/ Legacy 00:00:00 00:00:00 Visit Jeff [id number] Com isaac 998723 ty Health 2020-03-17 2020-03-17 [facility] 32 Common 08:52:00 08:52:00 [facility] 2020-03-10 2020-03-10 Office Maria R [facility] Encounter/ Legacy 00:00:00 00:00:00 Visit Jeff [id number] Com isaac 549289 ty Health 2020-03-10 2020-03-10 In-person Maria R [place] [address] 45-202 Legacy 00:00:00 00:00:00 encounter Jeff Behavioral 68197 C ommuni Health ty Health 2020-03-04 2020-03-04 Office Maria R [facility] Encou nter/ Legacy 00:00:00 00:00:00 Visit Joellen Andrade 22850 72044 [facility] 387488 [facility] 2020-02-25 2020-02-25 [facility] 31 67367 Common 09:00:00 09:00:00 [facility] 2020-02-21 2020-02-21 Office Leandra, [facility] [phone] [id number] Univers 15:11:20 16:03:55 Visit Philly Pimentel [employer] [id number] ity [facility] [id number] Mahendra as MATERNAL [phone] Med ical & CHILD [address] [place] [address] 2020-02-21 2020-02-21 Outpatient R SHAMIRMARGARET, [facility] [id number] Univers 15:00:00 15:00:[address] [facility] 2020-02-19 2020-02-19 Office Maria R, Jeff [facility] Encou nter/ Legacy 00:00:00 00:00:00 Visit Linnea Espinoza [id number] Ese Palomares 980406 Health 2020-02-11 2020-02-14 In-person [facility] R, [facility] 850321-323 Legacy 00:00:00 00:00:00 encounter Adina Zamora Behavioral [phone] Yulia Michelleca [facility] 2020-02-11 2020-02-11 Office [facility] Encou nter/ Legacy 00:00:00 00:00:00 Visit Adina Zamora [id number] Yulia Michelleca [id number] Health 2020-01-22 2020-01-22 Office Maria R [facility] Encounter/ Legacy 00:00:00 00:00:00 Visit Laurental [id number] Com isaac 198005 ty Health 2019-12-18 2019-12-18 Office Maria R [facility] Encounter/ Legacy 00:00:00 00:00:00 Visit Jeff [id number] Com isaac 051000 ty Health 2019-12-18 2019-12-18 Office Maria R [facility] Encounter/ Legacy 00:00:00 00:00:00 Visit Laurental [id number] Com isaac 546171 ty Health 2019-12-18 2019-12-18 Office Kirti Cunha [facility] Encou nter/ Legacy 00:00:00 00:00:00 Visit Kell Espinoza [id number] 5090 Communi 630667 ty Health 2019-12-18 2019-12-18 Office Maria R [facility] Encounter/ Legacy 00:00:00 00:00:00 Visit Jeff [id number] Com isaac 720515 ty Health 2019-12-18 2019-12-18 Office Heck, [facility] Encounter/ Legacy 00:00:00 00:00:00 Visit Shetal [id number] Com isaac 169545 ty Health 2019-12-18 2019-12-18 In-person Heck, [place] [id number] 45-202 Legacy 00:00:00 00:00:00 encounter Jeff Behavioral 53817 C ommuni Health ty Health 2019-11-18 2019-11-18 Office Heck, [facility] Encounter/ Legacy 00:00:00 00:00:00 Visit Shetal [id number] Com isaac 247744 ty Health 2019-10-25 2019-10-25 Office Heck, [facility] Encounter/ Legacy 00:00:00 00:00:00 Visit Shetal [id number] Com isaac 997700 ty Health 2019-10-25 2019-10-25 In-person Heck, [facility] 5418 45-202 Legacy 00:00:00 00:00:00 encounter Jeff Behavioral 88785 C ommuni Health ty Health 2019-10-08 2019-10-08 Office Jose Ramon [facility] Encounter / Legacy 00:00:00 00:00:00 Visit Cheryl [id number] Com isaac 397643 ty Health 2019-09-26 2019-09-26 Office Heck, [facility] Encounter/ Legacy 00:00:00 00:00:00 Visit Shetal [id number] Com isaac 727525 ty Health 2019-09-25 2019-09-25 Office Heck, [facility] Encounter/ Legacy 00:00:00 00:00:00 Visit Shetal [id number] Com isaac 516209 ty Health 2019-09-25 2019-09-25 Office [facility] Encou nter/ Legacy 00:00:00 00:00:00 Visit Cheryl Albright [id number] Joellen Gayle [id number] amanda Nicholson, [facility] 2019-09-25 2019-09-25 In-person [facility] [phone] Legacy 00:00:00 00:00:00 encounter Cheryl Albright Behavioral 84654 Blanka Carney Joellen [facility] 2019-09-24 2019-09-24 Office Heck, [facility] Encounter/ Legacy 00:00:00 00:00:00 Visit Jeff [id number] Com isaac 091124 ty Health 2019-08-16 2019-08-16 Office Heck, [facility] Encounter/ Legacy 00:00:00 00:00:00 Visit Jeff [id number] Com isaac 250720 ty Health 2019-07-31 2019-08-05 In-person Heck, [facility] 688353-608 Legacy 00:00:00 00:00:00 encounter Joellen Andrade Behavioral 56163 [facility] 2019-07-31 2019-07-31 Office Heck, [facility] Encou nter/ Legacy 00:00:00 00:00:00 Visit Joellen Andrade 31065 67094 Communi 243873 Health 2019-04-24 2019-04-24 Office Heck, [facility] Encounter/ Legacy 00:00:00 00:00:00 Visit Jeff [id number] Com isaac 898519 Health 2019-03-22 2019-03-27 In-person Heck, [facility] 419775-664 Legacy 00:00:00 00:00:00 encounter Joellen Andrade Behavioral 42408 [facility] 2019-03-22 2019-03-22 Office Heck, [facility] Enc nter/ Legacy 00:00:00 00:00:00 Visit Joellen Andrade [id number] Communi 778534 Health 2019-02-22 2019-02-22 [facility] 26 55689 Common 11:00:00 11:00:00 [facility] 2019-01-15 2019-01-15 Office Maria R, [facility] Encounter/ Legacy 00:00:00 00:00:00 Visit Jeff [id number] Com isaac 510881 ty Health 2019-01-12 2019-01-12 Office Heck, [facility] Encounter/ Legacy 00:00:00 00:00:00 Visit Jeff [id number] Com isaac 065106 ty Health 2019-01-12 2019-01-12 Office Maria R, [facility] Encou nter/ Legacy 00:00:00 00:00:00 Visit Linnea Espinoza [id number] [facility] Radha Huitron 019123 Health 2018-12-21 2018-12-21 Office Heck, [facility] Encou nter/ Legacy 00:00:00 00:00:00 Visit Joellen Carney [id number] [facility] 738913 Health 2018-12-21 2018-12-21 In-person Heck, [facility] 130382-953 Legacy 00:00:00 00:00:00 encounter Joellen Carney Behavioral 90 606 [facility] 2018-10-03 2018-10-03 Office Heck, [facility] Encou nter/ Legacy 00:00:00 00:00:00 Visit Tod Gusman [id number] [facility] 591494 Health 2018-10-03 2018-10-03 In-person Heck, [facility] 432507-969 Legacy 00:00:00 00:00:00 encounter Tod Gusman Behavioral 903 19 [facility] 2018-09-25 2018-09-25 Office Maria R [facility] Encounter/ Legacy 00:00:00 00:00:00 Visit Jeff [id number] Com isaac 893131 ty Health 2018-09-25 2018-09-25 Office Maria R [facility] Encounter/ Legacy 00:00:00 00:00:00 Visit Jeff [id number] Com isaac 687976 Health 2018-09-04 2018-09-04 [facility] 22 [id number] Common 11:30:00 11:30:00 [facility] 2018-08-28 2018-08-28 Office Ganga [facility] Encount er/ Legacy 00:00:00 00:00:00 Visit Adina [id number] Com isaac 494428 Health 2018-08-28 2018-08-28 Office [facility] Encou nter/ Legacy 00:00:00 00:00:00 Visit Joellen Carney [id number] [facility] 951430 Health 2018-08-28 2018-08-28 In-person Maria R, [facility] [id number] Legacy 00:00:00 00:00:00 encounter Joellen Carney Behavioral 90 211 Communi [facility] Health 2018-08-16 2018-08-16 Office Jose Ramon [facility] Encounter / Legacy 00:00:00 00:00:00 Visit Cheryl [id number] Com isaac 666198 Health 2018-08-02 2018-08-02 Office Jose Ramon [facility] Encounter / Legacy 00:00:00 00:00:00 Visit Cheryl [id number] Com isaac 848386 [facility] 2018-07-26 2018-07-31 In-person Heck, [facility] 356832-455 Legacy 00:00:00 00:00:00 encounter Annette Justice 90 109 [facility] Cheryl Albright [facility] 2018-07-26 2018-07-26 Office Uzma [facility] Encounter/ Legacy 00:00:00 00:00:00 Visit Tod [id number] Com isaac 947730 [facility] 2018-07-26 2018-07-26 Office Heck, [facility] Encou nter/ Legacy 00:00:00 00:00:00 Visit Annette Justice 1862 [id number] [id number] 2018-05-23 2018-05-23 Office Maria R [facility] Encounter/ Legacy 00:00:00 00:00:00 Visit Jeff [id number] Com isaac 654488 Health 2018-05-23 2018-05-23 Office Heck, [facility] Encou nter/ Legacy 00:00:00 00:00:00 Visit Tod Gusman [id number] Blanka Carney Joellen [id number] [facility] 2018-05-23 2018-05-23 In-person Heck, [facility] 284486-703 Legacy 00:00:00 00:00:00 encounter Tod Gusman Behavioral 811 06 Blanka Carney [facility] 2018-05-01 2018-05-01 Office Zamora, [facility] Encounter/ Legacy 00:00:00 00:00:00 Visit Adina [id number] Com isaac 050528 ty Health 2018-05-01 2018-05-01 Office Zamora, [facility] Encounter/ Legacy 00:00:00 00:00:00 Visit Adina [id number] Com isaac 471057 ty Health 2018-04-30 2018-04-30 Office Heck, [facility] Encounter/ Legacy 00:00:00 00:00:00 Visit Jeff [id number] Com isaac 968568 ty Health 2018-03-21 2018-03-22 In-person Heck, [facility] [place] 357615-886 Legacy 00:00:00 00:00:00 encounter Tod Gusman Behavioral 809 04 Replaced By [facility] ty Health 2018-03-21 2018-03-21 Office Heck, [facility] Encou nter/ Legacy 00:00:00 00:00:00 Visit Tod Gusman [id number] Communi 934872 ty Health 2018-02-28 2018-03-04 In-person Heck, [facility] [place] 092749-165 Legacy 00:00:00 00:00:00 encounter Linnea Espinoza Behavioral 8 0814 [facility] ty Health 2018-02-28 2018-02-28 Office Heck, [facility] Encounter/ Legacy 00:00:00 00:00:00 Visit Jeff [id number] Com isaac 487801 ty Health 2018-02-28 2018-02-28 Office Heck, [facility] Encou nter/ Legacy 00:00:00 00:00:00 Visit Linnea Espinoza [id number] 1041 Communi 699452 ty Health 2018-02-17 2018-02-17 Office Heck, [facility] Encounter/ Legacy 00:00:00 00:00:00 Visit Jeff [id number] Com isaac 791480 ty Health 2018-02-17 2018-02-17 Office Heck, [facility] Encounter/ Legacy 00:00:00 00:00:00 Visit Jeff [id number] Com isaac 316773 ty Health 2018-02-15 2018-02-15 [facility] 00:00:00 00:00:00 Visit Linnea Espinoza [id number] 2567 Communi 403770 ty Health 2018-02-13 2018-02-13 [facility] Legacy 00:00:00 00:00:00 Visit Jeff [id number] Com isaac 747972 ty Health 2018-02-13 2018-02-13 [facility] Legacy 00:00:00 00:00:00 Visit Adina [id number] Com isaac 661967 ty Health 2018-02-10 2018-02-10 [facility] Legacy 00:00:00 00:00:00 Visit Adina [id number] Com isaac 168733 ty Health 2018-02-08 2018-02-08 [facility] Legacy 00:00:00 00:00:00 Visit Anastasiia Parker [id number] Co mmuni 384465 ty Health 2018-02-08 2018-02-08 [facility] Legacy 00:00:00 00:00:00 Visit Anastasiia Parker [id number] Co mmuni 030122 ty Health 2018-02-08 2018-02-08 [facility] Legacy 00:00:00 00:00:00 Visit DillonRadha Mcdonough [id number] CommunRahel Skinner 553670 Health 2018-02-08 2018-02-08 Office Anastasiia Álvarez [facility] E ncounter/ Legacy 00:00:00 00:00:00 Visit Rahel Barrera [id number] 69463 Communi 245753 ty Health 2018-01-17 2018-01-17 Office Jeff Heck [facility] Encou nter/ Legacy 00:00:00 00:00:00 Visit Tod Gusman [id number] CommunLinnea Oh 508059 ty Health 2018-01-17 2018-01-17 In-person Maria R [facility] 734580-648 Legacy 00:00:00 00:00:00 encounter Tod Gusman Behavioral 807 03 [facility] Espinoza, [facility] ty Health 2017-12-13 2017-12-14 In-person Heck, [facility] 760322-427 Legacy 00:00:00 00:00:00 encounter Linnea Espinoza Behavioral 8 [phone] [facility] 2017-12-13 2017-12-13 Office Heck, [facility] Encou nter/ Legacy 00:00:00 00:00:00 Visit Linnea Espinoza [id number] [facility] 855777 Health 2017-11-25 2017-11-25 Office Heck, [facility] Enc nter/ Legacy 00:00:00 00:00:00 Visit Kell Espinoza [id number] 9491 [facility] DeniseFatimah prescott 049741 Health 2017-11-01 2017-11-03 In-person Maria R, [facility] 261267-735 Legacy 00:00:00 00:00:00 encounter Gladis Quijano Behavioral 80 417 [facility] 2017-11-01 2017-11-01 Office Quijano, [facility] Encounter/ Legacy 00:00:00 00:00:00 Visit Gladis [id number] Com isaac 279032 ty Health 2017-11-01 2017-11-01 Office Heck, [facility] Encou nter/ Legacy 00:00:00 00:00:00 Visit Gladis Quijano [id number] [facility] 281045 ty Health 2017-10-05 2017-10-05 Office Heck, [facility] Encounter/ Legacy 00:00:00 00:00:00 Visit Jeff [id number] Com isaac 651307 ty Health 2017-10-04 2017-10-04 Office Heck, [facility] Encounter/ Legacy 00:00:00 00:00:00 Visit Jeff [id number] Com isaac 345999 ty Health 2017-09-06 2017-09-07 In-person Maria R, [facility] 450712-837 Legacy 00:00:00 00:00:00 encounter Linnea Espinoza Behavioral 8 [phone] [facility] 2017-09-06 2017-09-06 Office Jeff Heck [facility] Encou nter/ Legacy 00:00:00 00:00:00 Visit Linnea Espinoza [id number] 6804 Communi 823561 [facility] 2017-08-11 2017-08-14 In-person Jeff Heck [facility] 726575-927 Legacy 00:00:00 00:00:00 encounter Linnea Espinoza Behavioral 8 [phone] [facility] 2017-08-11 2017-08-11 Office Maria R [facility] Encou nter/ Legacy 00:00:00 00:00:00 Visit Linnea Espinoza [id number] 1495 [facility] 343072 [facility] 2017-07-12 2017-07-12 Office Jeff Heck [facility] Enc nter/ Legacy 00:00:00 00:00:00 Visit Linnea Espinoza [id number] 3579 [facility] 447945 [facility] 2017-07-06 2017-07-11 In-person Jeff Heck [facility] 059952-147 Legacy 00:00:00 00:00:00 encounter Linnea Espinoza Behavioral 7 1220 [facility] 2017-07-06 2017-07-06 Office Yadira [facility] Encounter/ Legacy 00:00:00 00:00:00 Visit Katarzyna [id number] [facility] isaac 765267 [facility] 2017-07-06 2017-07-06 Office Maria R [facility] Encou nter/ Legacy 00:00:00 00:00:00 Visit Linnea Espinoza [id number] [facility] 127659 [facility] 2017-06-17 2017-06-17 Office Paulette [facility] Encounter/ Legacy 00:00:00 00:00:00 Visit Emily [id number] Com isaac 056105 [facility] Results Test Description Test Time Test Comments Results Result Comments Source POCT MOLECULAR FLU 2022-06-29 16:12:05 Test Item Value Reference Range Interpretation Comme nts POCT Molecular FluA (test code = 58448-8) Negative Negative POCT Molecular FluB (test code = 93873-2) Negative Negative Lab Interpretation (test code = 79556-9) Normal [facility] MOLECULAR [id number] 16:12:05 Test Item Value Reference Range Interpretation Comments POCT Molecular FluA (test code = Negative Negative 14068-1) POCT Molecular FluB (test code = Negative Negative 83413-0) Lab Interpretation (test code = Normal 84733-9) [facility] MOLECULAR [id number] 16:05:58 Test Item Value Reference Range Interpretation Comments POCT Molecular Strep (test code = Negative Negative 02134-6) Lab Interpretation (test code = Normal 53729-5) [facility] MOLECULAR [id number] 16:05:58 Test Item Value Reference Range Interpretation Comments POCT Molecular Strep (test code = Negative Negative 81325-5) Lab Interpretation (test code = Normal 66707-2) [facility] MOLECULAR [id number] 15:48:02 Test Item Value Reference Range Interpretation Comments POCT Molecular Strep (test code = Negative Negative 33515-4) Lab Interpretation (test code = Normal 11907-3) [facility] GRP A STREP (MOLECULAR)2021-01-21 16:13:00 Test Item Value Reference Range Interpretation Comments POCT GP A STREP (test negative Negative - code = 00682-5) Negative JOHANNY (test code = JOHANNY) accurate development and interpretation of all internal controls Lab Interpretation Normal (test code = 70414-9) [facility], [id number] 09:09:00 Test Item Value Reference Range Interpretation Comments blood glucose, random (test code = 77 mg/dL 65-99 2339-0) [facility], [id number] 09:09:00 Test Item Value Reference Range Interpretation Comments LDL cholesterol, serum (test code = 83 mg/dL 0-109 2089-1) [facility] COVID [id number] 22:55:00COVID DMT InterpretationInterpretation/Recommendations: Molecular NAAT Tests for Active Infection with the SARS-CoV-2 Virus: This result indicates that the patient has tested negative on one occasion for the SARS-CoV-2 virus that causes COVID-19 illness. This most likely indicates that the patient does not have an active infection with the SARS-CoV-2 virus. However, infection is not completely ruled out as the false negative rate for molecular NAAT testing using a nasopharyngeal sample can be up to 30%, mostly dependent on the timing of sample collection in relation to illness onset and any deficiencies in sampling techniques. If the patient has symptoms concerning for COVID-19 illness, a repeat NAAT test (PCR, Rapid ID Now, etc.) should be performed, at which time the SARS-CoV-2 virus - if present - may have reached a detectable viral load (usually peaking by the end of the first week of symptoms). Tests for IgM and/or IgG Antibodies to SARS-CoV-2 Virus: Testing for IgM and IgG antibodies 1-3 weeks after illness onset will indicate whether the patient has produced antibodies to the virus. At this time, it is not known if the production of antibodies - specifically IgG antibodies - indicates whether the patient is immune to future infections with the SARS-CoV-2 virus. ? ? Interpretation Result Comments:These interpretation comments are based upon all COVID-19 testing the patient has had at [facility], including molecular NAAT testing (more commonly known as PCR testing and Rapid ID Now testing) and antibody testing. It doesnot take into account any testing that a patient has had outside of the [facility] medical record. [facility] LABORATORY SERVICESCOVID IgnuzotXCUJ-EuV-3 NAAT (no units) ? ? Date ? Value ? 08/15/2020 ? Not Detected ? [facility] SERVICESMem[facility]woodCOVID-19 (MOLECULAR TESTING NUCLEIC ACID AMPLIFICATION)2020-08-17 02:07:00 Test Item Value Reference Range Interpretation Comments SARS-CoV-2 NAAT (test Not Detected Not Detected code = 45428-8) JOHANNY (test code = JOHANNY) [employer] SARS-CoV-2 Assay is a nucleic acid amplification test intended for the qualitative detection of RNA from SARS-CoV-2 from nasopharyngeal (HAND HIDE STRETCHER) specimens. ?It is used under Emergency Use Authorization (EUA) by FDA. A positive result is indicative of the presence of SARS-CoV-2 RNA. ?Clinical correlation with patient history and other diagnostic information is necessary to determine patient infection status. A negative (Not Detected) result does not preclude SARS-CoV-2 infection. ?Clinical correlation with patient history and other diagnostic information should be used in patient management decisions. Invalid: Unable to generate a valid test result on this specimen. ?Please submit a new specimen for repeat testing if clinically indicated. Lab Interpretation Normal (test code = 94043-8) [facility] FLU A AND B (MOLECULAR)2020-08-15 23:04:00 Test Item Value Reference Range Interpretation Comments POCT INFLUENZA A (test code = 3840) neg Negative - Negativ e POCT INFLUENZA B (test code = 3841) neg Negative - Negativ e [facility] [id number] 20:30:00 Test Item Value Reference Range Interpretation Comments POCT PREG (test code = 1605) Negative On board controls acceptable with C Yes Line (test code = 3574) POCT PREG LOT # (test code = 3575) POCT PREG TEST DATE (test code = 3576) [facility] [id number] 20:30:00 Test Item Value Reference Range Interpretation Comments POCT PREG (test code = 1605) Negative On board controls acceptable with C Yes Line (test code = 3574) POCT PREG LOT # (test code = 3575) POCT PREG TEST DATE (test code = 3576) [facility] [id number] 20:30:00 Test Item Value Reference Range Interpretation Comments POCT PREG (test code = 1605) Negative On board controls acceptable with C Yes Line (test code = 3574) POCT PREG LOT # (test code = 3575) POCT PREG TEST DATE (test code = 3576) [facility] [id number] 20:30:00 Test Item Value Reference Range Interpretation Comments POCT PREG (test code = 1605) Negative On board controls acceptable with C Yes Line (test code = 3574) POCT PREG LOT # (test code = 3575) POCT PREG TEST DATE (test code = 3576) [facility]wood[facility] A1C, blood, as % of total [id number] 09:38:00 Test Item Value Reference Range Interpretation Comments hemoglobin A1C, blood, as % of total 5.2 % 4.8-5.6 hemoglobin (test code = 4548-4) [facility], [id number] 09:38:00 Test Item Value Reference Range Interpretation Comments LDL cholesterol, serum (test code = 99 mg/dL 0-109 2088-1) [facility] low density [id number] 09:38:00 Test Item Value Reference Range Interpretation Comments very low density lipoproteins (test 15 mg/dL 5-40 code = 2090-7) [facility] cholesterol, [id number] 09:38:00 Test Item Value Reference Range Interpretation Comments HDL cholesterol, serum (test code = 44 mg/dL >39 2084-9) [facility], serum, [id number] 09:38:00 Test Item Value Reference Range Interpretation Comments triglyceride, serum, fasting (test 77 mg/dL 0-89 code = 2571-8) [facility], [id number] 09:38:00 Test Item Value Reference Range Interpretation Comments cholesterol, serum (test code = 158 mg/dL 296-827 4202-3) [facility] aminotransferase (SGPT), [id number] 09:38:00 Test Item Value Reference Range Interpretation Comments alanine aminotransferase (SGPT), serum 16 1/L 0-24 (test code = 1742-6) [facility]ate aminotransferase (SGOT), [id number] 09:38:00 Test Item Value Reference Range Interpretation Comments aspartate aminotransferase (SGOT), 18 1/L 0-40 serum (test code = 1920-8) [facility]aline phosphatase, [id number] 09:38:00 Test Item Value Reference Range Interpretation Comments alkaline phosphatase, serum (test code 73 1/L 45-101 = 1783-0) [facility], serum, [id number] 09:38:00 Test Item Value Reference Range Interpretation Comments bilirubin, serum, total (test code 0.3 mg/dL 0.0-1.2 = 1975-2) [facility] Healthalbumin/globulin ratio, [id number] 09:38:00 Test Item Value Reference Range Interpretation Comments albumin/globulin ratio, 1.7 (unknown unit) 1.2-2.2 serum (test code = 1759-0) [facility] Healthglobulin, [id number] 09:38:00 Test Item Value Reference Range Interpretation Comments globulin, serum (test code 2.7 (unknown unit) 1.5-4.5 = 2336-6) [facility] Healthalbumin, [id number] 09:38:00 Test Item Value Reference Range Interpretation Comments albumin, serum (test code = 1751-7) 4.5 g/dL 3.9-5.0 [facility], total, [id number] 09:38:00 Test Item Value Reference Range Interpretation Comments protein, total, serum (test code = 7.2 g/dL 6.0-8.5 2885-2) [facility]calcium, [id number] 09:38:00 Test Item Value Reference Range Interpretation Comments calcium, serum (test code = 1999-8) 9.9 mg/dL 8.9-10.4 [facility] dioxide, venous [id number] 09:38:00 Test Item Value Reference Range Interpretation Comments carbon dioxide, venous blood (test 23 mmol/L - code = 7-1) [facility]chloride, [id number] 09:38:00 Test Item Value Reference Range Interpretation Comments chloride, serum (test code = 104 mmol/L 96-106 5-0) [facility]potassium, [id number] 09:38:00 Test Item Value Reference Range Interpretation Comments potassium, serum (test code = 5.1 mmol/L 3.5-5.2 2823-3) [facility]sodium, [id number] 09:38:00 Test Item Value Reference Range Interpretation Comments sodium, serum (test code = 2951-2) 142 mmol/L 134-144 [facility] nitrogen/creatinine ratio, [id number] 09:38:00 Test Item Value Reference Range Interpretation Comments urea nitrogen/creatinine 11 (unknown unit) 10 ratio, serum (test code = 3097-3) [facility]inine, [id number] 09:38:00 Test Item Value Reference Range Interpretation Comments creatinine, serum (test code = 0.74 mg/dL 0.57-1.00 2160-0) [facility] nitrogen, [id number] 09:38:00 Test Item Value Reference Range Interpretation Comments urea nitrogen, blood (test code = 8 mg/dL 5-18 3094-0) [facility]blood glucose, [id number] 09:38:00 Test Item Value Reference Range Interpretation Comments blood glucose, random (test code = 80 mg/dL 65-99 2339-0) [facility]immature granulocytes, percentage of total cells, blood 2019-09-25 09:38:00 Test Item Value Reference Range Interpretation Comments immature granulocytes, percentage of 0 % total cells, blood (test code = 58453-1) [facility]basophil count, [id number] 09:38:00 Test Item Value Reference Range Interpretation Comments basophil count, absolute (test 0.0 x10E3/uL 0.0-0.3 code = 72461-3) [facility]osinophil Absolute [id number] 09:38:00 Test Item Value Reference Range Interpretation Comments Eosinophil Absolute Count (test 0.0 X10E3/UL 0.0-0.4 code = 52651-8) [facility]ocyte count, blood, [id number] 09:38:00 Test Item Value Reference Range Interpretation Comments monocyte count, blood, automated 0.6 X10E3/UL 0.1-0.9 (test code = 742-7) [facility]lymph[facility] count, blood, [id number] 09:38:00 Test Item Value Reference Range Interpretation Comments lymphocyte count, blood, 2.1 X10E3/UL 0.7-3.1 automated (test code = 731-0) [facility]Absolute [id number] 09:38:00 Test Item Value Reference Range Interpretation Comments Absolute Neutrophils (test code 4.7 X10E3/UL 1.4-7.0 = 12365-2) [facility] Healthbasophils as percent of blood [id number] 09:38:00 Test Item Value Reference Range Interpretation Comments basophils as percent of blood 0 % leukocytes (test code = 707-0) [facility]osinophils as percent of blood [id number] 09:38:00 Test Item Value Reference Range Interpretation Comments eosinophils as percent of blood 1 % leukocytes (test code = 713-8) [facility] Healthmonocytes as percent of blood voqqwdwzip6013-02-31 09:38:00 Test Item Value Reference Range Interpretation Comments monocytes as percent of blood 8 % leukocytes (test code = 5905-5) [facility]ocytes as percent of blood [id number] 09:38:00 Test Item Value Reference Range Interpretation Comments lymphocytes as percent of blood 28 % leukocytes (test code = 736-9) [facility]neutrophils as percent of blood [id number] 09:38:00 Test Item Value Reference Range Interpretation Comments neutrophils as percent of blood 63 % leukocytes (test code = 770-8) [facility]platelet [id number] 09:38:00 Test Item Value Reference Range Interpretation Comments platelet count (test code = 335 X10E3/UL 150-450 777-3) [facility] blood cell distribution [id number] 09:38:00 Test Item Value Reference Range Interpretation Comments red blood cell distribution width 14.6 % 11.7-15.4 (test code = 788-0) [facility] corpuscular hemoglobin concentration, [id number] 09:38:00 Test Item Value Reference Range Interpretation Comments mean corpuscular hemoglobin 32.5 G/DL 31.5-35.7 concentration, RBC (test code = 786-4) [facility] corpuscular hemoglobin, [id number] 09:38:00 Test Item Value Reference Range Interpretation Comments mean corpuscular hemoglobin, RBC 30.1 pg 26.6-33.0 (test code = 785-6) [facility] corpuscular volume, [id number] 09:38:00 Test Item Value Reference Range Interpretation Comments mean corpuscular volume, RBC (test code 93 fL 79-97 = 787-2) [facility]hematocrit, [id number] 09:38:00 Test Item Value Reference Range Interpretation Comments hematocrit, blood (test code = 4544-3) 38.5 % 34.0-46.6 [facility]hemoglobin, [id number] 09:38:00 Test Item Value Reference Range Interpretation Comments hemoglobin, blood (test code = 12.5 g/dL 11.1-15.9 718-7) [facility] Westerythrocyte (RBC) [id number] 09:38:00 Test Item Value Reference Range Interpretation Comments erythrocyte (RBC) count (test 4.15 X10E6/UL 3.77-5.28 code = 789-8) [facility]leukocyte count, [id number] 09:38:00 Test Item Value Reference Range Interpretation Comments leukocyte count, blood (test 7.5 X10E3/UL 3.4-10.8 code = 6690-2) [facility]alanine aminotransferase (SGPT), [id number] 10:10:00 Test Item Value Reference Range Interpretation Comments alanine aminotransferase (SGPT), serum 14 1/L 0-24 (test code = 1742-6) [facility]aspartate aminotransferase (SGOT), [id number] 10:10:00 Test Item Value Reference Range Interpretation Comments aspartate aminotransferase (SGOT), 19 1/L 0-40 serum (test code = 1920-8) [facility]alk[facility] phosphatase, [id number] 10:10:00 Test Item Value Reference Range Interpretation Comments alkaline phosphatase, serum (test code 95 1/L 45-101 = 1783-0) [facility]irubin, serum, [id number] 10:10:00 Test Item Value Reference Range Interpretation Comments bilirubin, serum, total (test code <0.2 mg/dL 0.0-1.2 = 1975-2) [facility]albumin/globulin ratio, [id number] 10:10:00 Test Item Value Reference Range Interpretation Comments albumin/globulin ratio, 1.9 (unknown unit) 1.2-2.2 serum (test code = 1759-0) [facility] Healthglobulin, [id number] 10:10:00 Test Item Value Reference Range Interpretation Comments globulin, serum (test code 2.6 (unknown unit) 1.5-4.5 = 2336-6) [facility] Healthalbumin, [id number] 10:10:00 Test Item Value Reference Range Interpretation Comments albumin, serum (test code = 1751-7) 5.0 g/dL 3.5-5.5 [facility] Healthprotein, total, [id number] 10:10:00 Test Item Value Reference Range Interpretation Comments protein, total, serum (test code = 7.6 g/dL 6.0-8.5 2885-2) [facility] Healthcalcium, [id number] 10:10:00 Test Item Value Reference Range Interpretation Comments calcium, serum (test code = 10.1 mg/dL 8.9-10.4 1999-) [facility] dioxide, venous [id number] 10:10:00 Test Item Value Reference Range Interpretation Comments carbon dioxide, venous blood (test 20 mmol/L - code = 2026-1) [facility]chloride, [id number] 10:10:00 Test Item Value Reference Range Interpretation Comments chloride, serum (test code = 104 mmol/L 96-106 2074-0) [facility]potassium, [id number] 10:10:00 Test Item Value Reference Range Interpretation Comments potassium, serum (test code = 4.9 mmol/L 3.5-5.2 2823-3) [facility]sodium, [id number] 10:10:00 Test Item Value Reference Range Interpretation Comments sodium, serum (test code = 2951-2) 141 mmol/L 134-144 [facility] Healthurea nitrogen/creatinine ratio, [id number] 10:10:00 Test Item Value Reference Range Interpretation Comments urea nitrogen/creatinine 17 (unknown unit) 10-22 ratio, serum (test code = 3097-3) [facility]creatinine, [id number] 10:10:00 Test Item Value Reference Range Interpretation Comments creatinine, serum (test code = 0.82 mg/dL 0.57-1.00 2160-0) [facility] Healthurea nitrogen, [id number] 10:10:00 Test Item Value Reference Range Interpretation Comments urea nitrogen, blood (test code = 14 mg/dL 5-18 3094-0) [facility] glucose, [id number] 10:10:00 Test Item Value Reference Range Interpretation Comments blood glucose, random (test code = 84 mg/dL 65-99 2339-0) [facility]immature granulocytes, percentage of total cells, blood 2019-01-12 10:10:00 Test Item Value Reference Range Interpretation Comments immature granulocytes, percentage of 0 % total cells, blood (test code = 68091-0) [facility] count, [id number] 10:10:00 Test Item Value Reference Range Interpretation Comments basophil count, absolute (test 0.0 x10E3/uL 0.0-0.3 code = 11465-8) [facility]Eosinophil Absolute [id number] 10:10:00 Test Item Value Reference Range Interpretation Comments Eosinophil Absolute Count (test 0.1 X10E3/UL 0.0-0.4 code = 82270-0) [facility]monocyte count, blood, [id number] 10:10:00 Test Item Value Reference Range Interpretation Comments monocyte count, blood, automated 0.4 X10E3/UL 0.1-0.9 (test code = 742-7) [facility]lymphocyte count, blood, [id number] 10:10:00 Test Item Value Reference Range Interpretation Comments lymphocyte count, blood, 2.0 X10E3/UL 0.7-3.1 automated (test code = 731-0) [facility]Absolute [id number] 10:10:00 Test Item Value Reference Range Interpretation Comments Absolute Neutrophils (test code 2.9 X10E3/UL 1.4-7.0 = 90919-6) [facility]ophils as percent of blood [id number] 10:10:00 Test Item Value Reference Range Interpretation Comments basophils as percent of blood 0 % leukocytes (test code = 707-0) [facility] Healtheosinophils as percent of blood lxjmzwlqkt0128-07-77 10:10:00 Test Item Value Reference Range Interpretation Comments eosinophils as percent of blood 1 % leukocytes (test code = 713-8) [facility] Healthmonocytes as percent of blood kjfqfidqiu9048-29-26 10:10:00 Test Item Value Reference Range Interpretation Comments monocytes as percent of blood 8 % leukocytes (test code = 5905-5) [facility] Healthlymphocytes as percent of blood ldicfkvmbi2184-44-32 10:10:00 Test Item Value Reference Range Interpretation Comments lymphocytes as percent of blood 37 % leukocytes (test code = 736-9) [facility] Healthneutrophils as percent of blood eemezybtnf4951-99-20 10:10:00 Test Item Value Reference Range Interpretation Comments neutrophils as percent of blood 54 % leukocytes (test code = 770-8) [facility]platelet [id number] 10:10:00 Test Item Value Reference Range Interpretation Comments platelet count (test code = 357 X10E3/UL 150-450 777-3) [facility] cell distribution [id number] 10:10:00 Test Item Value Reference Range Interpretation Comments red blood cell distribution width 16.4 % 12.3-15.4 H (test code = 788-0) [facility] corpuscular hemoglobin concentration, [id number] 10:10:00 Test Item Value Reference Range Interpretation Comments mean corpuscular hemoglobin 32.2 G/DL 31.5-35.7 concentration, RBC (test code = 786-4) [facility] corpuscular hemoglobin, [id number] 10:10:00 Test Item Value Reference Range Interpretation Comments mean corpuscular hemoglobin, RBC 27.9 pg 26.6-33.0 (test code = 785-6) [facility], [id number] 10:10:00 Test Item Value Reference Range Interpretation Comments mean corpuscular volume, RBC (test code 86 fL 79-97 = 787-2) [facility]ocrit, [id number] 10:10:00 Test Item Value Reference Range Interpretation Comments hematocrit, blood (test code = 4544-3) 36.9 % 34.0-46.6 [facility]hemoglobin, [id number] 10:10:00 Test Item Value Reference Range Interpretation Comments hemoglobin, blood (test code = 11.9 g/dL 11.1-15.9 718-7) [facility]throcyte (RBC) [id number] 10:10:00 Test Item Value Reference Range Interpretation Comments erythrocyte (RBC) count (test 4.27 X10E6/UL 3.77-5.28 code = 789-8) [facility]ukocyte count, [id number] 10:10:00 Test Item Value Reference Range Interpretation Comments leukocyte count, blood (test 5.4 X10E3/UL 3.4-10.8 code = 6690-2) [facility]
[2022-11-11] MEDS ORDERED: MAGNES/ALUMIN/SIMET 30ML UCUP ONE (09:31)
[2022-11-11] MEDS ORDERED: LIDOCAINE VISCOUS 2% SOLN 15 ML UDC ONE (09:32)
[2022-11-11] MEDS ORDERED: dexAMETHasone 4 MG TAB ONE (09:32)
--- NOTE | 2022-11-11 10:25 | ER ---
Nurse's Notes [facility] Name: Stefania Ovalles Age: 22 yrs Sex: Female : 2000 Arrival Date: 11/11/2022 Time: 08:40 Bed 11 Private MD: Diagnosis: Acute tonsillitis, unspecified Presentation: 11/11 08:43 Ebola Screen: Patient denies travel to an Ebola-affected area in the 21 days before 1 illness onset. Initial Sepsis Screen: Does the patient meet any 2 criteria? No. Patient's initial sepsis screen is negative. Does the patient have a suspected source of infection? Yes: Other: sore throat. Risk Assessment: Do you want to hurt yourself or someone else? Patient reports no desire to harm self or others. 08:43 Method Of Arrival: Ambulatory [facility] 08:43 Acuity: ANNETTE 4 1 08:44 Chief complaint: Patient states: Sore throat, DHALIWAL, not feeling well, chills for 3 days. ll1 Coronavirus screen: Client denies travel out of the [place] in the last 14 days. At this time, the client does not indicate any symptoms associated with coronavirus-19. Onset of symptoms was November 09, 2022. Triage Assessment: 08:46 General: Appears in no apparent distress. Behavior is calm, cooperative, appropriate ll1 for age. Pain: Complains of pain in throat Quality of pain is described as aching. EENT: Reports pain when swallowing. Neuro: No deficits noted. Cardiovascular: No deficits noted. Respiratory: No deficits noted. Historical: - Allergies: 08:42 No Known Allergies; ll1 - PMHx: 08:42 Anxiety; Depression; GERD; ll1 - Immunization history:: Adult Immunizations up to date. - Social history:: Smoking status: Patient denies any tobacco usage or history of. Screenin:47 [facility] ED Fall Risk Assessment (Adult) History of falling in the last 3 months, db including since admission No falls in past 3 months (0 pts) Confusion or Disorientation No (0 pts) Intoxicated or Sedated No (0 pts) Impaired Gait No (0 pts) Mobility Assist Device Used No (0 pt) Altered Elimination No (0 pt) Score/Fall Risk Level 0 - 2 = Low Risk Oriented to surroundings, Maintained a safe environment. Abuse screen: Denies threats or abuse. Denies injuries from another. Nutritional screening: No deficits noted. Tuberculosis screening: No symptoms or risk factors identified. Assessment: 09:33 Reassessment: No changes from previously documented assessment. Patient and/or family ll1 updated on plan of care and expected duration. Pain level reassessed. Patient is alert, oriented x 3, equal unlabored respirations, skin warm/dry/pink. 10:47 Reassessment: Patient appears in no apparent distress at this time. No changes from db previously documented assessment. Patient and/or family updated on plan of care and expected duration. Pain level reassessed. Patient is alert, oriented x 3, equal unlabored respirations, skin warm/dry/pink. General: Appears in no apparent distress. comfortable, Behavior is calm, cooperative. Respiratory: Airway is patent Respiratory effort is even, unlabored, Respiratory pattern is regular, symmetrical, Breath sounds are clear bilaterally. EENT: Throat is pink. Vital Signs: 08:44 BP 127 / 90; Pulse 95; Resp 16; Temp 98.9(O); Pulse Ox 99% ; ll1 10:47 BP 112 / 77; Pulse 88; Resp 18; Pulse Ox 99% on R/A; db ED Course: 08:41 Patient arrived in ED. mr 08:43 Leticia Washington FNP-C is [facility]. kb 08:43 David Monterroso DO is Attending Physician. kb 08:43 Triage completed. ll1 08:43 Arm band placed on. ll1 08:48 Strep Sent. ll1 09:22 Patient placed in an exam room, on a stretcher. ss 10:47 Shannan Levin, RN is Primary Nurse. db 10:47 Patient has correct armband on for positive identification. Bed in low position. Call db light in reach. Side rails up X 1. Warm blanket given. 10:47 No provider procedures requiring assistance completed. Patient did not have IV access db during this emergency room visit. Administered Medications: 09:32 Drug: GI Cocktail without - (Maalox PO Suspension 30 ml, Lidocaine Mucous ll1 Membrane Liquid 2 % 15 ml) Route: PO; 10:50 Follow up: Response: No adverse reaction db 09:33 Drug: Dexamethasone PO 10 mg Route: PO; ll1 10:51 Follow up: Response: No adverse reaction db Medication: 10:47 VIS not applicable for this client. db Outcome: 10:24 Discharge ordered by MD. whaley 10:47 Discharged to home ambulatory. db 10:47 Condition: stable 10:47 Discharge instructions given to patient, Instructed on discharge instructions, Prescriptions given X 1. 10:51 Patient left the ED. db Signatures: Leticia Washington, GIOVANNA WILSONP-Jodi Damon Shelby RN RN ss Tootie Suarez RN RN 1 Shannan Levin RN RN db
--- NOTE | 2022-11-11 10:25 | EDPHYS ---
Physician Documentation [facility] Name: Stefania Ovalles Age: 22 yrs Sex: Female : 2000 Arrival Date: 11/11/2022 Time: 08:40 Bed 11 Private MD: ED Physician David Monterroso HPI: 11/11 08:51 This 22 yrs old Female presents to ER via Ambulatory with complaints of Sore Throat. kb 08:51 The patient presents with sore throat. The patient describes throat pain as constant. kb Onset: The symptoms/episode began/occurred 3 day(s) ago. Severity of symptoms: At their worst the symptoms were moderate, in the emergency department the symptoms are unchanged. Modifying factors: The symptoms are alleviated by nothing, the symptoms are aggravated by swallowing, Patient's oral intake status: good Denies contact with similarly ill indivduals. Associated signs and symptoms: Pertinent positives: chills, flu-like symptoms, myalgias, Sore throat. The patient has not experienced similar symptoms in the past. The patient has not recently seen a physician. Historical: - Allergies: 08:42 No Known Allergies; ll1 - PMHx: 08:42 Anxiety; Depression; GERD; ll1 - Immunization history:: Adult Immunizations up to date. - Social history:: Smoking status: Patient denies any tobacco usage or history of. ROS: 08:49 Respiratory: Negative for shortness of breath, cough, wheezing, and pleuritic chest kb pain. 08:49 Constitutional: Positive for body aches, chills, malaise. 08:49 ENT: Positive for sore throat. 08:49 All other systems are negative. Exam: 08:49 Constitutional: This is a well developed, well nourished patient who is awake, alert, kb and in no acute distress. Head/Face: Normocephalic, atraumatic. Cardiovascular: Regular rate and rhythm with a normal S1 and S2. No gallops, murmurs, or rubs. No pulse deficits. Respiratory: Respirations even and unlabored. No increased work of breathing. Talking in full sentences Skin: Warm, dry with normal turgor. Normal color. MS/ Extremity: Pulses equal, no cyanosis. Neurovascular intact. Full, normal range of motion. Neuro: Awake and alert, GCS 15, oriented to person, place, time, and situation. Moves all extremities. Normal gait. 08:49 ENT: Posterior pharynx: Airway: normal, no evidence of obstruction, Tonsils: bilaterally enlarged, with erythema, with exudate, Uvula: normal, midline, swelling, that is moderate, erythema, that is marked, exudate, that is mild. Vital Signs: 08:44 BP 127 / 90; Pulse 95; Resp 16; Temp 98.9(O); Pulse Ox 99% ; ll1 10:47 BP 112 / 77; Pulse 88; Resp 18; Pulse Ox 99% on R/A; db MDM: 08:43 Patient medically screened. kb 08:49 Differential diagnosis: strep, pharyngitis, tonsillitis, peritonsillar abscess. Data kb reviewed: vital signs, nurses notes. Test considered but Not performed: Labs: cbc, bmp . CT: CT soft tissue neck considered to rule out peritonsillar abscess, but erythema, swelling and exudate is present to bilateral tonsils equally. Counseling: I had a detailed discussion with the patient and/or guardian regarding: the historical points, exam findings, and any diagnostic results supporting the discharge/admit diagnosis, lab results, the need for outpatient follow up, an ENT specialist, a family practitioner, to return to the emergency department if symptoms worsen or persist or if there are any questions or concerns that arise at home. 11/11 08:46 Order name: Strep 11/11 09:06 Order name: Throat Culture EDMS Administered Medications: 09:32 Drug: GI Cocktail without - (Maalox PO Suspension 30 ml, Lidocaine Mucous ll1 Membrane Liquid 2 % 15 ml) Route: PO; 10:50 Follow up: Response: No adverse reaction db 09:33 Drug: Dexamethasone PO 10 mg Route: PO; ll1 10:51 Follow up: Response: No adverse reaction db Disposition: 18:58 Co-signature as Attending Physician, David Monterroso DO I was immediately available on-site ms3 in the Emergency Department for consultation in the care of the patient. Disposition Summary: 11/11/22 10:24 Discharge Ordered Location: [place] kb Condition: Stable kb Diagnosis - Acute tonsillitis, unspecified kb Followup: kb - With: Emergency Department - When: As needed - Reason: Worsening of condition Followup: kb - With: Private Physician - When: 2 - 3 days - Reason: Recheck today's complaints, Continuance of care, Re-evaluation by your physician Discharge Instructions: - Discharge Summary Sheet kb - Tonsillitis, Jzeo-iu-Pyzz kb Forms: - Work release form kb - Medication Reconciliation Form kb - Thank You Letter kb - Antibiotic Education kb - Prescription Opioid Use kb Prescriptions: - Augmentin 875-125 mg Oral Tablet - take 1 tablet by ORAL route every 12 hours for 10 days; 20 tablet; Refills: 0, kb Product Selection Permitted Signatures: Dispatcher [employer] EDMS Leticia Washington, CHIEF CHEMIST-C CHIEF CHEMIST-Tootie Arriaga, RN RN ll1 David Monterroso DO DO ms3 Shannan Levin RN db
[2022-11-11 11:10] VITALS: TEMP 98.9; O2SAT 99
[2022-11-11 11:11] VITALS: BP 112/77
== END 2022-11-11 10:51 | disposition home or self-care (01) ==
LOC: ER 08:40
DX: J03.90 Acute tonsillitis, unspecified (principal)
CPT/HCPCS: 87070; 87081; J8540

== ENCOUNTER 2023-02-10 17:23 | Emergency (ER) | payer SELFPAY ==
--- OUTSIDE RECORDS SUMMARY | 2023-02-10 17:32 | XMS REPORT | Continuity of Care Document ---
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 ity of 24 hr 00:00: TABLET(S) [...] ARIPiprazol Yes TAKE ONE UT e (Abilify) 06 (1) Health 15 MG 00:00: TABLET(S) tablet 00 BY MOUTH ONCE A DAY. buPROPion Yes TAKE ONE UT XL 11-20 (1) Health (Wellbutrin 00:00: TABLET(S) XL) 300 MG 00 BY MOUTH 24 hr ONCE A tablet DAY. diclofenac Yes TAKE ONE UT (Cataflam) 11-20 (1) Health 50 MG 00:00: TABLET(S) tablet 00 BY MOUTH TWICE A DAY WITH FOOD OR MILK. FLUoxetine 2020- No TAKE ONE UT (PROzac) 10 11-20-12 (1) Health MG capsule 00:00: 00:00 CAPSULE(S) 00 :00 BY MOUTH ONCE A DAY. FLUoxetine 2020- No TAKE THREE UT (PROzac) 20 11-20-12 (3) Health MG capsule 00:00: 00:00 TABLET(S) [...] HOURS. hydrOXYzine Yes TAKE ONE UT pamoate 08-21 (1) Health (Vistaril) 00:00: CAPSULE(S) 25 MG 00 BY MOUTH capsule AT BEDTIME. (HYDROXYZIN 2020- No [place] 1 Take 1 M aple E PAMOATE) 08-2011 Heck capsule by Magy dgpennie 25 MG CAPS 00:00: 00:00 mouth Behav io 00 :00 every ral night Health hydrOXYzine Yes TAKE ONE UT HCl 08-15 (1) Health (Atarax) 10 00:00: TABLET(S) MG tablet 00 BY MOUTH TWICE A DAY NEEDED FOR ANXIETY. (ARIPIPRAZO 2019-07 No [place] 1 Take 1 M aple LE) 15 MG 02-24 Heck tablet by [place] TABS 00:00: 00:00 mouth once Behavi o 00 :00 a day [facility] WELLBUTRIN 2019-07- No [place] 1 Take 1 Ma ple XL 02-22 Heck tablet by [place] (BUPROPION 00:00: 00:00 mouth once Behavio HCL) 300 MG 00 :00 a day ral [id number] Health PROZAC 2019-07 No [place] 1 1xD 1 By Mouth Jatin ple (FLUOXETINE 0608 Heck MD daily [place] HCL) 10 MG 00:00: 00:00 Behavi o CAPS 00 :00 [facility] Pantoprazol Pantoprazol Yes Mary Carmen 1 tablet Common e Sodium e Sodium 03-17 [place] [facility] 00:00: - [facility] 00 [facility] norethindro 2019- Yes Take by Uni vers ne-e.estrad 8-06 mouth. ity of iol-iron 20:45: [place] (LO 28 Medical LOESTRIN FE Branch ORAL) norethindro 2019- Yes Take by Uni vers ne-e.estrad 8-06 mouth. ity of iol-iron 20:45: [place] (LO 28 Medical LOESTRIN FE Branch ORAL) norethindro 2019- Yes Take by Uni vers ne-e.estrad 8-06 mouth. ity of iol-iron 20:45: [place] (LO 28 Medical LOESTRIN FE Branch ORAL) norethindro 2020-0 Yes Take by Uni vers ne-e.estrad 8-06 mouth. ity of iol-iron 20:45: [place] (LO [...] 2020-0 Yes Take by Uni vers ne-e.estrad 8-06 mouth. ity of iol-iron 20:45: [place] (LO 28 Medical LOESTRIN FE Branch ORAL) norethindro 2020-0 Yes Take by Uni vers ne-e.estrad 8-06 mouth. ity of iol-iron 20:45: [place] (LO 28 Medical LOESTRIN FE Branch ORAL) norethindro 2020-0 Yes Take by Uni vers ne-e.estrad 8-06 mouth. ity of iol-iron 20:45: [place] (LO [...] No Take by Un clare ne-e.estrad 02-20 mouth. ity o f iol-iron 20:44: 00:00 [place] (LO 42 :00 Medical LOESTRIN FE Branch ORAL) norethindro 2020-0 2020- No Take by Un clare ne-e.estrad 02-20 mouth. ity o f iol-iron 20:44: 00:00 [place] (LO 42 :00 Medical LOESTRIN FE Branch ORAL) norethindro 2020-0 2020- No Take by Un clare ne-e.estrad 8-06 08-06 mouth. ity o f iol-iron 20:44: 00:00 [place] (LO 42 :00 Medical LOESTRIN FE Branch ORAL) norethindro 2020-0 2020- No Take by Un clare ne-e.estrad 8-06 08-06 mouth. ity o f iol-iron 20:44: 00:00 [place] (LO 42 :00 Medical LOESTRIN FE Branch ORAL) norethindro 2020-0 Yes [id number] 1{tbl} Take 1 Univers ne-e.estrad 8-06 tablet by ity of iol-iron 00:00: mouth [place] (LO 00 daily. Medical LOESTRIN Branch FE) 1 mg-10 mcg (24)/10 mcg (2) per tablet norethindro 2020-0 Yes [id number] 1{tbl} Take 1 Univers ne-e.estrad 8-06 tablet by ity of iol-iron 00:00: mouth [place] (LO 00 daily. Medical LOESTRIN Branch FE) 1 mg-10 mcg (24)/10 mcg (2) per tablet norethindro 2020-0 Yes [id number] 1{tbl} Take 1 Univers ne-e.estrad 8-06 tablet by ity of iol-iron 00:00: mouth [place] (LO 00 daily. Medical LOESTRIN Branch FE) 1 mg-10 mcg (24)/10 mcg (2) per tablet norethindro 2020-0 Yes [id number] 1{tbl} Take 1 Univers ne-e.estrad 8-06 tablet by ity of iol-iron 00:00: mouth [place] (LO 00 daily. Medical LOESTRIN Branch FE) 1 mg-10 mcg (24)/10 mcg (2) per tablet norethindro 2020-0 Yes [id number] 1{tbl} Take 1 Univers ne-e.estrad 8-06 tablet by ity of iol-iron 00:00: mouth [place] (LO 00 daily. Medical LOESTRIN Branch FE) 1 mg-10 mcg (24)/10 mcg (2) per tablet norethindro 2020-0 Yes [id number] 1{tbl} Take 1 Univers ne-e.estrad 8-06 tablet by ity of iol-iron 00:00: mouth [place] (LO 00 daily. Medical LOESTRIN Branch FE) 1 mg-10 mcg (24)/10 mcg (2) per tablet norethindro 2020-0 Yes [id number] 1{tbl} Take 1 Univers ne-e.estrad 8-06 tablet by ity of iol-iron 00:00: mouth [place] (LO 00 daily. Medical LOESTRIN Branch FE) 1 mg-10 mcg (24)/10 mcg (2) per tablet norethindro 2020-0 Yes [id number] 1{tbl} Take 1 Univers ne-e.estrad 8-06 tablet by ity of iol-iron 00:00: mouth [place] (LO 00 daily. Medical LOESTRIN Branch FE) 1 mg-10 mcg (24)/10 mcg (2) per tablet norethindro 2020-0 Yes [id number] 1{tbl} Take 1 Univers ne-e.estrad 8-06 tablet by ity of iol-iron 00:00: mouth [place] (LO 00 daily. Medical LOESTRIN Branch FE) 1 mg-10 mcg (24)/10 mcg (2) per tablet norethindro 2020-0 Yes [id number] 1{tbl} Take 1 Univers ne-e.estrad 8-06 tablet by ity of iol-iron 00:00: mouth [place] (LO 00 daily. Medical LOESTRIN Branch FE) 1 mg-10 mcg (24)/10 mcg (2) per tablet norethindro 2020-0 Yes [id number] 1{tbl} Take 1 Univers ne-e.estrad 8-06 tablet by ity of iol-iron 00:00: mouth [place] (LO 00 daily. Medical LOESTRIN Branch FE) 1 mg-10 mcg (24)/10 mcg (2) per tablet norethindro 2020-0 Yes [id number] 1{tbl} Take 1 Univers ne-e.estrad 8-06 tablet by ity of iol-iron 00:00: mouth [place] (LO 00 daily. Medical LOESTRIN Branch FE) 1 mg-10 mcg (24)/10 mcg (2) per tablet norethindro 2020-0 Yes [id number] 1{tbl} Take 1 Univers ne-e.estrad 8-06 tablet by ity of iol-iron 00:00: mouth [place] (LO 00 daily. Medical LOESTRIN Branch FE) 1 mg-10 mcg (24)/10 mcg (2) per tablet norethindro 2020-0 Yes [id number] 1{tbl} Take 1 Univers ne-e.estrad 8-06 tablet by ity of iol-iron 00:00: mouth [place] (LO 00 daily. Medical LOESTRIN Branch FE) 1 mg-10 mcg (24)/10 mcg (2) per tablet norethindro 2020-0 Yes [id number] 1{tbl} Take 1 Univers ne-e.estrad 8-06 tablet by ity of iol-iron 00:00: mouth [place] (LO 00 daily. Medical LOESTRIN Branch FE) 1 mg-10 mcg (24)/10 mcg (2) per tablet norethindro 2020-0 Yes [id number] 1{tbl} Take 1 Univers ne-e.estrad 8-06 tablet by ity of iol-iron 00:00: mouth [place] (LO 00 daily. Medical LOESTRIN Branch FE) 1 mg-10 mcg (24)/10 mcg (2) per tablet norethindro 2020-0 Yes [id number] 1{tbl} Take 1 Univers ne-e.estrad 8-06 tablet by ity of iol-iron 00:00: mouth [place] (LO 00 daily. Medical LOESTRIN Branch FE) 1 mg-10 mcg (24)/10 mcg (2) per tablet norethindro 2020-0 Yes [id number] 1{tbl} Take 1 Univers ne-e.estrad 8-06 tablet by ity of iol-iron 00:00: mouth [place] (LO 00 daily. Medical LOESTRIN Branch FE) 1 mg-10 mcg (24)/10 mcg (2) per tablet norethindro 2020-0 Yes [id number] 1{tbl} Take 1 Univers ne-e.estrad 8-06 tablet by ity of iol-iron 00:00: mouth [place] (LO 00 daily. Medical LOESTRIN Branch FE) 1 mg-10 mcg (24)/10 mcg (2) per tablet norethindro 2020-0 Yes [id number] 1{tbl} Take 1 Univers ne-e.estrad 8-06 tablet by ity of iol-iron 00:00: mouth [place] (LO 00 daily. [facility] LOESTRIN [facility]) 1 mg-10 mcg (24)/10 mcg (2) per tablet norethindro 2020- No [id number] 1{tbl} Take 1 Univers ne-e.estrad 8-06 07-29 tablet by it y of iol-iron 00:00: 00:00 mouth [place] (LO 00 :00 daily. [facility] LOESTRIN [facility]) 1 mg-10 mcg (24)/10 mcg (2) per tablet FLUoxetine 2019-0 Yes TAKE THREE U nivers 20 mg 8-03 (3) ity of capsule 00:00: [place] BY MOUTH Medical DAILY. [place] FLUoxetine 2019-0 Yes TAKE TWO Uni vers 40 mg 8-03 (2) ity of capsule 00:00: [place](S) [place] BY MOUTH Medical ONCE A Branch DAY. FLUoxetine 2019-0 Yes TAKE THREE U nivers 20 mg 8-03 (3) ity of capsule 00:00: [place](S) [place] BY MOUTH Medical DAILY. Branch FLUoxetine 2019-0 Yes TAKE TWO Uni vers 40 mg 8-03 (2) ity of capsule 00:00: [place]SU[place](S) [place] BY MOUTH Medical ONCE A Branch DAY. FLUoxetine 2019-0 Yes TAKE THREE U nivers 20 mg 8-03 (3) ity of capsule 00:00: [place]SULE(S) [place] BY MOUTH Medical DAILY. Branch FLUoxetine 2019-0 Yes TAKE TWO Uni vers 40 mg 8-03 (2) ity of capsule 00:00: [place]SULE(S) [place] BY MOUTH Medical ONCE A Branch DAY. FLUoxetine 2019-0 Yes TAKE THREE U nivers 20 mg 8-03 (3) ity of capsule 00:00: CAPSULE(S) [place] BY MOUTH Medical DAILY. Branch FLUoxetine 2019-0 Yes TAKE TWO Uni vers 40 mg 8-03 (2) ity of capsule 00:00: CAPSULE(S) [place] BY MOUTH Medical ONCE A Branch DAY. FLUoxetine 2019-0 Yes TAKE THREE U nivers 20 mg [...] Eventually ity of capsule 00:00: will come [place] 00 off of it. Medical Branch FLUoxetine 2020-0 Yes TAKE THREE U nivers 20 mg 8-03 (3) ity of capsule 00:00: CAPSULE(S) [place] BY MOUTH Medical DAILY. Branch FLUoxetine 2020-0 Yes 30mg 30 mg. Unive rs 40 mg 8-03 Eventually ity of capsule 00:00: will come [place] 00 off of it. Medical Branch FLUoxetine 2020-0 Yes TAKE THREE U nivers 20 mg 8-03 (3) ity of capsule 00:00: CAPSULE(S) [place] BY MOUTH Medical DAILY. Branch FLUoxetine 2020-0 Yes 30mg 30 mg. Unive rs 40 mg 8-03 Eventually ity of capsule 00:00: will come [place] 00 off of it. Medical Branch FLUoxetine [...] Medical ONCE A Branch DAY. FLUoxetine 2020-0 2020- No TAKE THREE Univers 20 mg 8-03 08-10 (3) ity of capsule 00:00: 00:00 CAPSULE(S) [place] 00 :00 BY MOUTH Medical DAILY. Branch FLUoxetine 2020-0 2020- No 30mg 30 mg. Univ ers 40 mg 02-17 Eventually ity of capsule 00:00: 00:00 [place] come [place] off of it. Medical Branch FLUoxetine 2020- No TAKE THREE Univers 20 mg 02-17 (3) ity of capsule 00:00: 00:00 CAPSULE(S) [place] as 00 :00 BY MOUTH Medical DAILY. Branch FLUoxetine 2020- No 30mg 30 mg. Univ ers 40 mg 02-17 Eventually ity of capsule 00:00: 00:00 [place] come [place] off of it. Medical Branch FLUoxetine 2020- No TAKE THREE Univers 20 mg 02-17 (3) ity of capsule 00:00: 00:00 CAPSULE(S) [place] 00 :00 BY MOUTH Medical DAILY. Branch FLUoxetine 2020- No 30mg 30 mg. Univ ers 40 mg 02-17 Eventually ity of capsule 00:00: 00:[place] come [place] off of it. Medical Branch ARIPiprazol 2020-0 Yes TAKE ONE Un clare e 15 mg 7-28 (1) ity of tablet 00:00: TABLET(S) 00 BY MOUTH Medical ONCE A Branch DAY. ARIPiprazol 2020-0 Yes TAKE ONE Un clare e 15 mg 7-28 (1) ity of tablet 00:00: TABLET(S) 00 BY MOUTH Medical ONCE A Branch DAY. ARIPiprazol 2020-0 Yes TAKE ONE Un clare e 15 mg 7-28 (1) ity of tablet 00:00: TABLET(S) 00 BY MOUTH Medical ONCE A Branch DAY. ARIPiprazol 2020-0 Yes TAKE ONE Un clare e 15 mg 7-28 (1) ity of tablet 00:00: TABLET(S) 00 BY MOUTH Medical ONCE A Branch DAY. ARIPiprazol 2020-0 Yes TAKE ONE Un clare e 15 mg 7-28 (1) ity of tablet 00:00: TABLET(S) 00 BY MOUTH Medical ONCE A Branch [...] 7-28 (1) ity of tablet 00:00: TABLET(S) 00 BY MOUTH Medical ONCE A Branch [...] 7-28 (1) ity of tablet 00:00: TABLET(S) 00 BY MOUTH Medical ONCE A Branch DAY. ARIPiprazol 2020-0 Yes TAKE ONE Un clare e 15 mg 7-28 (1) ity of tablet 00:00: TABLET(S) BY MOUTH Medical ONCE A Branch DAY. ARIPiprazol 2020-0 Yes 10mg 10 mg. Univ ers e 15 mg 7-28 ity of tablet 00:00: [facility] ARIPiprazol 2020-0 Yes 10mg 10 mg. Univ ers e 15 mg 7-28 ity of tablet 00:00: [facility] Branch ARIPiprazol 2020-0 Yes 10mg 10 mg. Univ ers e 15 mg 7-28 ity of tablet 00:00: [facility] ARIPiprazol 2020-0 Yes 10mg 10 mg. Univ ers e 15 mg 7-28 ity of tablet 00:00: [facility] ARIPiprazol 2020-0 Yes 10mg 10 mg. Univ ers e 15 mg 7-28 ity of tablet 00:00: [facility] ARIPiprazol 2020-0 Yes TAKE ONE Un clare e 15 mg 7-28 (1) ity of tablet 00:00: TABLET(S) BY MOUTH Medical ONCE A Branch DAY. ARIPiprazol 2020-0 Yes 10mg 10 mg. Univ ers e 15 mg 7-28 ity of tablet 00:00: [facility] ARIPiprazol 2020-0 Yes 10mg 10 mg. Univ ers e 15 mg 7-28 ity of tablet 00:00: [facility] ARIPiprazol 2020-0 Yes 10mg 10 mg. Univ ers e 15 mg 7-28 ity of tablet 00:00: [facility] ARIPiprazol 2020-0 Yes TAKE ONE Un clare [...] 7-23 (1) ity of capsule 00:00: CAPSULE(S) BY MOUTH Medical ONCE A Branch DAY. [...] TAKE ONE [place] E HCL) 10 11-13 Maria R BROOKS (1) [place] MG TABS [...] CAPS 00:00: 00:00 daily Behavio 00 :00 [facility] medroxyprog medroxyprog 2018-0 No 150mg Common esterone ac esterone ac 5-17 S pirit 00:00: - [facility] 00 [facility] medroxyprog medroxyprog 2019-0 No 150mg Common esterone ac esterone ac 5-17 S pirit 00:00: - [facility] 00 [facility] medroxyprog medroxyprog 2019-0 No 150mg Common esterone ac esterone ac 2-18 S pirit 00:00: - [facility] medroxyprog medroxyprog 2019-0 No 150mg Common esterone ac esterone ac 2-18 S pirit 00:00: - [facility] (FLUOXETINE 2019- No 1{Capsu 1xD 1 By Mouth [place] HCL) 10 MG 07-26 le} daily [place] CAPS 00:00: 00:00 Behavio 00 :00 [facility] medroxyprog medroxyprog 2017-07 No 150mg Common esterone ac esterone ac 1-26 S pirit 00:00: - [facility] medroxyprog medroxyprog 2017-07 No 150mg Common esterone ac esterone ac 1- S pirit 00:00: - [facility] medroxyprog medroxyprog No 150mg Common esterone ac esterone ac 8- S pirit 00:00: - [facility] medroxyprog medroxyprog No 150mg Common esterone ac esterone ac 8-28 S pirit 00:00: - [facility] PROZAC 2018- No 1 By Mouth Mapl e (FLUOXETINE 5-29 08-14 daily [place] HCL) 10 MG 00:00: 00:00 Behavi o CAPS 00 :00 [facility] tamsulosin Yes .4mg QD Take 0.4 [facility] (Flomax) 1-12 mg by Health 0.4 MG 24 00:00: mouth 1 hr capsule 00 (one) time each day. ZOLOFT 2016-07 2018- No take 1.5 [place] (SERTRALINE 2-20 04-17 tabs daily [place] HCL) 100 MG 00:00: 00:00 Behav io TABS 00 :00 [facility] Nexium Nexium Yes Mary Carmen 1 capsule Commo n [place] Abilify 15 Abilify 15 No 1{table QD [...] MG _a_meal } Biotin Biotin No Biotin 80783 MCG 72628 MCG 61953 MCG Vitamin C Vitamin C No 1{table [...] 50 MCG t} 50 MCG (1999 UT) (2000 UT) (1999 UT) buPROPion buPROPion No buPROPion [...] (XL) 300 MG Biotin Biotin No Biotin 39569 MCG 88526 MCG 87261 MCG B12 Folate B12 Folate No B12 [...] t} 1000 MG Biotin Biotin No Biotin 22916 MCG 90720 MCG 23849 MCG Laxative 5 Laxative 5 No 1{table [...] Status Commen ts Source Name Name SARS-COV-2 COVID-19 2021-10 Completed Unive rsity of [...] rsity of PFIZER VACCINE -28 [place] Medi araslei 00:00:0 Branch 0 SARS-COV-2 COVID-19 2021-09 Completed Unive rsity of PFIZER VACCINE -28 [place] Medi araseli 00:00:0 Branch 0 SARS-COV-2 COVID-19 2021-09 Completed Unive rsity of PFIZER VACCINE -28 [place] Medi araseli 00:00:0 Branch 0 SARS-COV-2 COVID-19 2021-09 Completed Unive rsity of PFIZER VACCINE -28 [place] Medi araseli 00:00:0 Branch 0 SARS-COV-2 COVID-19 2021- Completed Unive rsity of PFIZER VACCINE -28 [place] Medi araseli 00:00:0 Branch 0 SARS-COV-2 COVID-19 2021- Completed Unive rsity of PFIZER VACCINE -28 [place] Medi araseli 00:00:0 Branch 0 SARS-COV-2 COVID-19 2021- Completed Unive rsity of PFIZER VACCINE -28 [place] Medi araseli 00:00:0 Branch 0 SARS-COV-2 COVID-19 2021- Completed Unive rsity of PFIZER VACCINE -28 [place] Medi araseli 00:00:0 Branch 0 HPV Unspecified 2020-08 Completed Universit y of -10 [place] [facility] 00:00:0 Branch 0 HPV Unspecified 2020-08 Completed Universit y of -10 [place] [facility] 00:00:0 Branch 0 HPV Unspecified 2020-08 Completed Universit y of -10 [place] [facility] 00:00:0 Branch 0 HPV Unspecified 2020-08 Completed Universit y of -10 [place] [facility] 00:00:0 Branch 0 HPV Unspecified 2020-08 Completed Universit y of -10 [place] [facility] 00:00:0 Branch 0 HPV Unspecified 2020-08 Completed Universit y of -10 [place] [facility] 00:00:0 Branch 0 HPV Unspecified 2020-08 Completed Universit y of -10 [place] [facility] 00:00:0 Branch 0 HPV Unspecified 2020-08 Completed Universit y of -10 [place] [facility] 00:00:0 Branch 0 HPV Unspecified 2020-08 Completed Universit y of -10 [place] [facility] 00:00:0 Branch 0 HPV Unspecified 2020-08 Completed Universit y of -10 [place] [facility] 00:00:0 Branch 0 HPV Unspecified 2020-08 Completed Universit y of -10 [place] [facility] 00:00:0 Branch 0 HPV Unspecified 2020-08 Completed Universit y of -10 [place] [facility] 00:00:0 Branch 0 HPV Unspecified 2020-08 Completed Universit y of -10 [place] [facility] 00:00:0 Branch 0 HPV Unspecified 202-08 Completed Universit y of -10 [place] [facility] 00:00:0 Branch 0 HPV Unspecified 2020-08 Completed Universit y of -10 [place] [facility] 00:00:0 Branch 0 HPV Unspecified 2021-08 Completed Universit y of -10 [place] [facility] 00:00:0 Branch 0 HPV Unspecified 2021-02 Completed Universit y of -10 [facility] 00:00:0 Branch 0 medroxyprogesterone ac medroxyprogesterone 2018-11 [facility]pleted [facility] 14[facility] medroxyprogesterone medroxyprogesterone 2018-08 Completed [facility] 11:38:[address] medroxyprogesterone medroxyprogesterone 2018-05 Completed [facility] 15:13:[address] medroxyprogesterone medroxyprogesterone 2018-02 Completed [facility] 14:51:[address] Vital Signs Vital Name Observation Time Observation Value Comments Source Systolic blood 2022-06-29 16:03:00 101 mm[Hg] Univer sity of [facility] Diastolic blood 2022-06-29 16:03:00 66 mm[Hg] Unive rsity of [facility] Heart rate 2022-06-29 16:03:00 118 /min [facility] Body temperature 2022-06-29 16:03:00 38.28 [place] [facility] Respiratory rate 2022-06-29 16:03:00 16 /min [facility] Body weight 2022-06-29 16:03:00 51.982 kg [facility] Oxygen saturation in 2022-06-29 16:03:00 100 /min [facility] Arterial blood by [facility] Pulse oximetry Branch Systolic blood 2022-05-25 20:19:00 124 mm[Hg] Univer sity of pressure [facility] Diastolic blood 2022-05-25 20:19:00 79 mm[Hg] Unive rsity of [facility] Heart rate 2022-05-25 20:19:00 69 /min [facility] Body temperature 2022-05-25 20:19:00 36.44 [facility] 2022-05-25 20:19:00 16 /min [facility] Body height 2022-05-25 20:19:00 162.6 cm Universi [...] 2022-05-09 20:09:00 85 /min [facility] [place] [facility] Body temperature 2022-05-09 20:09:00 36.94 [...] saturation in 2022-05-09 20:09:00 98 /min University Arterial blood by [facility] Pulse oximetry Branch Systolic blood 2022-04-15 15:38:00 110 mm[Hg] Univer sity of pressure [place] [facility] Diastolic blood 2022-04-15 15:38:00 74 mm[Hg] Unive rsity of pressure [place] [facility] Heart rate 2022-04-15 15:38:00 77 /min [facility] [place] [facility] Body temperature 2022-04-15 15:38:00 37.94 [place] Univ ersity of [facility] Branch Respiratory rate 2022-04-15 15:38:00 16 /min Univ ersity of [place] [facility] Body height 2022-04-15 15:38:00 162.6 cm [facility] [place] [facility] Body weight 2022-04-15 15:38:00 51.755 kg [facility] [place] [facility] BMI 2022-04-15 15:38:00 19.59 kg/m2 [facility] [place] [facility] Oxygen saturation in 2022-04-15 15:38:00 98 /min University of Arterial blood by [facility] Pulse oximetry Branch height 2021-12-18 08:00:00 63 [in_i] Common [facility] weight 2021-12-18 08:00:00 123.4 [lb_av] [facility] temperature 2021-12-18 08:00:00 97.8 [degF] Common [facility] bmi 2021-12-18 08:00:00 21.86 kg/m2 Common S [facility] oximetry 2021-12-18 08:00:00 98 % [facility] respiratory rate 2021-12-18 08:00:00 16 /min Comm on [facility] blood pressure 2021-12-18 08:00:00 103 mm[Hg] Common [facility] - systolic [facility] blood pressure 2021-12-18 08:00:00 66 mm[Hg] Common [facility] - diastolic [facility] weight 2021-11-17 11:00:00 123.4 [lb_av] [facility] temperature 2021-11-17 11:00:00 97.9 [degF] [facility] bmi 2021-11-17 11:00:00 21.86 kg/m2 [facility] oximetry 2021-11-17 11:00:00 99 % Common [facility] respiratory rate 2021-11-17 11:00:00 16 /min Comm on [facility] blood pressure 2021-11-17 11:00:00 94 mm[Hg] Common [facility] - systolic [facility] blood pressure 2021-11-17 11:00:00 58 mm[Hg] Common [facility] - diastolic [facility] height 2021-11-17 11:00:00 63 [in_i] Common S [facility] height 2021-03-17 08:20:00 63 [in_i] [facility] weight 2021-03-17 08:20:00 147 [lb_av] [facility] temperature 2021-03-17 08:20:00 97.9 [degF] [facility] bmi 2021-03-17 08:20:00 26.04 kg/m2 Common [facility] oximetry 2021-03-17 08:20:00 98 % Common [facility] respiratory rate 2021-03-17 08:20:00 16 /min Comm on [facility] - [facility] blood pressure 2021-03-17 08:20:00 94 mm[Hg] Common [facility] - systolic [facility] blood pressure 2021-03-17 08:20:00 63 mm[Hg] Common [facility] diastolic [facility] Systolic blood 2021-02-24 18:25:00 110 mm[Hg] Univer sity of [facility] Diastolic blood 2021-02-24 18:25:00 75 mm[Hg] Unive rsity of [facility] Heart rate 2021-02-24 18:25:00 79 /min [facility] Body temperature 2021-02-24 18:25:00 36.56 [facility] Res[facility] rate 2021-02-24 18:25:00 18 /min [facility] Body height 2021-02-24 18:25:00 162.6 cm [facility] Body weight 2021-02-24 18:25:00 68.55 kg [facility] BMI 2021-02-24 18:25:00 25.94 kg/m2 [facility] Systolic blood 2021-01-21 16:04:00 117 mm[Hg] Univer sity of [facility] Diastolic blood 2021-01-21 16:04:00 78 mm[Hg] Unive rsity of [facility] Heart rate 2021-01-21 16:04:00 62 /min [facility] Body temperature 2021-01-21 16:04:00 36.94 [facility] Respiratory rate 2021-01-21 16:04:00 18 /min Univ ersity of [facility] Body height 2021-01-21 16:04:00 162.6 cm [facility] [place] [facility] [place] Body weight 2021-01-21 16:04:00 70.308 kg [facility] [place] [facility] Branch BMI 2021-01-21 16:04:00 26.61 kg/m2 [facility] Oxygen saturation in 2021-01-21 16:04:00 100 /min [facility] Arterial blood by [facility] Pulse oximetry Branch Systolic blood 2021-01-02 15:43:00 110 mm[Hg] Univer sity of pressure [facility] Diastolic blood 2021-01-02 15:43:00 72 mm[Hg] Unive rsity of [facility] Heart rate 2021-01-02 15:43:00 73 /min [facility] Body height 2021-01-02 15:43:00 162.6 cm [facility] Body weight 2021-01-02 15:43:00 72.576 kg [facility] BMI 2021-01-02 15:43:00 27.46 kg/m2 [facility] Systolic blood 2020-12-03 19:59:00 104 mm[Hg] Univer [facility]ity of pressure [facility] Diastolic blood 2020-12-03 19:59:00 71 mm[Hg] Unive rsity of [facility] Heart rate 2020-12-03 19:59:00 81 /min [facility] Body height 2020-12-03 19:59:00 162.6 cm [facility] Body weight 2020-12-03 19:59:00 71.668 kg [facility] BMI 2020-12-03 19:59:00 27.12 kg/m2 [facility] Systolic blood 2020-11-26 16:37:00 112 mm[Hg] UT [...] 2020-08-15 22:39:00 107 mm[Hg] Univer sity of [facility] Diastolic blood 2020-08-15 22:39:00 75 mm[Hg] Unive rsity of [facility] Heart rate 2020-08-15 22:39:00 99 /min [facility] Body temperature 2020-08-15 22:39:00 37.67 [facility] Respiratory rate 2020-08-15 22:39:00 17 /min [facility] Body height 2020-08-15 22:39:00 162.6 cm [facility] Body weight 2020-08-15 22:39:00 69.854 kg [facility] BMI 2020-08-15 22:39:00 26.43 kg/m2 [facility]i ty [facility] Oxygen saturation in 2020-08-15 22:39:00 98 /min [facility] Arterial blood by [facility] Pulse oximetry Branch Systolic blood 2020-02-21 20:27:00 107 mm[Hg] Univer sity of [facility] Diastolic blood 2020-02-21 20:27:00 67 mm[Hg] Unive rsity of [facility] Heart rate 2020-02-21 20:27:00 80 /min [facility] Body temperature 2020-02-21 20:27:00 36.67 Tequila [facility] Respiratory rate 2020-02-21 20:27:00 16 /min [facility] Body height 2020-02-21 20:27:00 160 cm [facility] Body weight 2020-02-21 20:27:00 72.576 kg [facility] BMI 2020-02-21 20:27:00 28.34 kg/m2 [facility] blood pressure, 2019-09-25 08:56:28 76 mm[Hg] [facility] blood pressure, 2019-09-25 08:56:28 114 mm[Hg] [facility] systolic Health pulse rate 2019-09-25 08:56:28 78 /min [facility] weight in kilograms 2019-09-25 08:56:28 70.7 [facility] weight E&M 2019-09-25 08:56:28 155.54 [lb_av] [facility] height E&M 2019-09-25 08:56:28 63.39 [in_i] [facility] weight percentile 2019-09-25 08:56:28 88 [facility] Health height percentile 2019-09-25 08:56:28 37 [facility] Health Body Mass Index 2019-09-25 08:56:28 27.31 kg/m2 [facility] ([facility] BMI (body mass 2019-09-25 08:56:28 91 % [facility] index) percentile Health blood pressure, 2019-07-31 13:47:58 69 mm[Hg] [facility] diastolic [facility] blood pressure, 2019-07-31 13:47:58 107 mm[Hg] [facility] systolic Health pulse rate 2019-07-31 13:47:58 81 /min [facility] weight in kilograms 2019-07-31 13:47:58 69.7 kg [facility] weight E&M 2019-07-31 13:47:58 153.34 [lb_av] [facility] height E&M 2019-07-31 13:47:58 63.07 [in_i] [facility] weight percentile 2019-07-31 13:47:58 87 [facility] Health height percentile 2019-07-31 13:47:58 33 [facility] Body Mass Index 2019-07-31 13:47:58 27.20 kg/m2 [facility] (Ratio) Health BMI (body mass 2019-07-31 13:47:58 90 % [facility] index[facility] percentile Health weight E&M 2019-03-22 13:55:03 147 [lb_av] [facility] weight in kilograms 2019-03-22 13:55:03 66.82 kg L [facility] E&M Health height E&M 2019-03-22 13:55:03 63 [in_i] [facility] weight percentile 2019-03-22 13:55:03 84 [facility] Health height percentile 2019-03-22 13:55:03 32 [facility] BMI (body mass 2019-03-22 13:55:03 88 % [facility] index) percentile Health Body Mass Index 2019-03-22 13:55:03 26.13 kg/m2 [facility] (Ratio) Health blood pressure, 2018-12-21 10:52:09 75 mm[Hg] [facility] diastolic Health blood pressure, 2018-12-21 10:52:09 110 mm[Hg] [facility] systolic Health pulse rate 2018-12-21 10:52:09 76 /min [facility] weight in kilograms 2018-12-21 10:52:09 66.9 kg L [facility] E&M Health weight E&M 2018-12-21 10:52:09 147.18 [lb_av] [facility] Health height E&M 2018-12-21 10:52:09 63.19 [in_i] [facility] weight percentile 2018-12-21 10:52:09 84 [facility] Health height percentile 2018-12-21 10:52:09 36 [facility] Body Mass Index 2018-12-21 10:52:09 26.01 kg/m2 [facility] (Ratio) Health BMI (body mass 2018-12-21 10:52:09 88 % [facility] index[facility] percentile Health blood pressure, 2018-10-03 11:15:46 76 mm[Hg] [facility] diastolic Health blood pressure, 2018-10-03 11:15:46 110 mm[Hg] [facility] pulse rate 2018-10-03 11:15:46 80 /min [facility] weight E&M 2018-10-03 11:15:46 137 [lb_av] [facility] weight in kilograms 2018-10-03 11:15:46 62.27 kg L [facility] E&M Health height E&M 2018-10-03 11:15:46 63 [in_i] [facility] weight percentile 2018-10-03 11:15:46 76 [facility] Health height percentile 2018-10-03 11:15:46 33 Leg [facility] Health Body Mass Index 2018-10-03 11:15:46 24.36 kg/m2 [facility] BMI (body mass 2018-10-03 11:15:46 82 % [facility] index) percentile Health blood pressure, 2018-08-28 10:51:43 69 mm[Hg] [facility] blood pressure, 2018-08-28 10:51:43 105 mm[Hg] [facility] systolic Health pulse rate 2018-08-28 10:51:43 77 /min [facility] weight in kilograms 2018-08-28 10:51:43 59.3 kg L [facility] E&M Health weight E&M 2018-08-28 10:51:43 130.46 [lb_av] [facility] Health height E&M 2018-08-28 10:51:43 63.19 [in_i] [facility] weight percentile 2018-08-28 10:51:43 68 [facility] Health height percentile 2018-08-28 10:51:43 36 [facility] Health Body Mass Index 2018-08-28 10:51:43 23.05 kg/m2 [facility] (Ratio) Health BMI (body mass 2018-08-28 10:51:43 74 % [facility] index) percentile Health blood pressure, 2018-07-26 11:01:58 72 mm[Hg] [facility] diastolic Health blood pressure, 2018-07-26 11:01:58 106 mm[Hg] [facility] systolic Health pulse rate 2018-07-26 11:01:58 75 /min [facility] weight in kilograms 2018-07-26 11:01:58 57.9 kg L [facility] E&M Health weight E&M 2018-07-26 11:01:58 127.38 [lb_av] [facility] Health height E&M 2018-07-26 11:01:58 62.80 [in_i] [facility] weight percentile 2018-07-26 11:01:58 63 [facility] Health height percentile 2018-07-26 11:01:58 31 [facility] Body Mass Index 2018-07-26 11:01:58 22.79 kg/m2 [facility] (Ratio) Health BMI (body mass 2018-07-26 11:01:58 72 % [facility] index[facility] percentile Health blood pressure, 2018-05-23 13:21:10 74 mm[Hg] [facility] diastolic Health blood pressure, 2018-05-23 13:21:10 108 mm[Hg] [facility] systolic Health pulse rate 2018-05-23 13:21:10 96 /min [facility] weight in kilograms 2018-05-23 13:21:10 56 kg L [facility] E&M Health weight E&M 2018-05-23 13:21:10 123.20 [lb_av] [facility] Health height E&M 2018-05-23 13:21:10 63.39 [in_i] [facility] weight percentile 2018-05-23 13:21:10 57 [facility] Health height percentile 2018-05-23 13:21:10 40 [facility] Body Mass Index 2018-05-23 13:21:10 21.63 kg/m2 [facility] (Ratio) Health BMI (body mass 2018-05-23 13:21:10 62 % [facility] index) percentile Health blood pressure, 2018-03-21 14:25:49 66 mm[Hg] [facility] diastolic Health blood pressure, 2018-03-21 14:25:49 98 mm[Hg] [facility] systolic Health pulse rate 2018-03-21 14:25:49 66 /min [facility] weight E&M 2018-03-21 14:25:49 114 [lb_av] [facility] weight in kilograms 2018-03-21 14:25:49 51.82 kg L [facility] E[facility]M Health height E&M 2018-03-21 14:25:49 63 [in_i] [facility] weight percentile 2018-03-21 14:25:49 39 [facility] Health height percentile 2018-03-21 14:25:49 34 [facility] BMI (body mass 2018-03-21 14:25:49 47 % [facility] index) percentile Health Body Mass Index 2018-03-21 14:25:49 20.27 kg/m2 [facility] blood pressure, 2018-02-28 14:24:45 70 mm[Hg] [facility] diastolic Health blood pressure, 2018-02-28 14:24:45 103 mm[Hg] [facility] systolic Health pulse rate 2018-02-28 14:24:45 87 /min [facility] weight in kilograms 2018-02-28 14:24:45 51.4 kg L [facility] E[facility]M Health weight E&M 2018-02-28 14:24:45 113.08 [lb_av] [facility] Health height E&M 2018-02-28 14:24:45 62.80 [in_i] [facility] weight percentile 2018-02-28 14:24:45 38 [facility] Health height percentile 2018-02-28 14:24:45 32 [facility] BMI (body mass 2018-02-28 14:24:45 46 % [facility] index) percentile Health Body Mass Index 2018-02-28 14:24:45 20.23 kg/m2 [facility] blood pressure, 2018-01-17 10:49:12 70 mm[Hg] [facility] diastolic Health blood pressure, 2018-01-17 10:49:12 107 mm[Hg] [facility] Health pulse rate 2018-01-17 10:49:12 76 /min [facility] weight E&M 2018-01-17 10:49:12 97.46 [lb_av] [facility] Health weight in kilograms 2018-01-17 10:49:12 44.30 kg L [facility] E[facility]M Health height E&M 2018-01-17 10:49:12 63.07 [in_i] [facility] weight percentile 2018-01-17 10:49:12 8 [facility] Health height percentile 2018-01-17 10:49:12 36 [facility] BMI (body mass 2018-01-17 10:49:12 9 % [facility] index) percentile Health Body Mass Index 2018-01-17 10:49:12 17.29 kg/m2 [facility] blood pressure, 2017-12-13 11:14:55 73 mm[Hg] [facility] diastolic Health blood pressure, 2017-12-13 11:14:55 113 mm[Hg] [facility] systolic Health pulse rate 2017-12-13 11:14:55 60 /min [facility] weight in kilograms 2017-12-13 11:14:55 50.4 kg L [facility]M Health weight E&M 2017-12-13 11:14:55 110.88 [lb_av] [facility] Health height E&M 2017-12-13 11:14:55 62.80 [in_i] [facility] weight percentile 2017-12-13 11:14:55 34 [facility] Health height percentile 2017-12-13 11:14:55 32 [facility] BMI (body mass 2017-12-13 11:14:55 42 % [facility] index) percentile Health Body Mass Index 2017-12-13 11:14:55 19.84 kg/m2 [facility] (Ratio) Health blood pressure, 2017-11-01 09:40:55 69 mm[Hg] [facility] diastolic Health blood pressure, 2017-11-01 09:40:55 106 mm[Hg] [facility] Health pulse rate 2017-11-01 09:40:55 75 /min [facility] weight E&M 2017-11-01 09:40:55 109.40 [lb_av] [facility] Health weight in kilograms 2017-11-01 09:40:55 49.73 kg L [facility]M Health height E&M 2017-11-01 09:40:55 62.75 [in_i] [facility] weight percentile 2017-11-01 09:40:55 32 [facility] Health height percentile 2017-11-01 09:40:55 32 [facility] BMI (body mass 2017-11-01 09:40:55 40 % [facility] index) percentile Health Body Mass Index 2017-11-01 09:40:55 19.60 kg/m2 [facility] blood pressure, 2017-09-06 09:48:08 66 mm[Hg] [facility] diastolic Health blood pressure, 2017-09-06 09:48:08 103 mm[Hg] [facility] systolic Health pulse rate 2017-09-06 09:48:08 71 /min [facility] weight in kilograms 2017-09-06 09:48:08 48.7 kg L [facility]M Health weight E&M 2017-09-06 09:48:08 107.14 [lb_av] [facility] Health height E&M 2017-09-06 09:48:08 62.72 [in_i] [facility] weight percentile 2017-09-06 09:48:08 28 [facility] Health height percentile 2017-09-06 09:48:08 32 [facility] Health BMI (body mass 2017-09-06 09:48:08 35 % [facility] index) percentile Health Body Mass Index 2017-09-06 09:48:08 19.22 kg/m2 [facility] (Ratio) Health blood pressure, 2017-08-11 13:13:08 65 mm[Hg] [facility] diastolic Health blood pressure, 2017-08-11 13:13:08 101 mm[Hg] [facility] Health pulse rate 2017-08-11 13:13:08 68 /min [facility] weight in kilograms 2017-08-11 13:13:08 47.5 kg L [facility]M Health weight E&M 2017-08-11 13:13:08 104.50 [lb_av] [facility] Health height E&M 2017-08-11 13:13:08 61.81 [in_i] [facility] weight percentile 2017-08-11 13:13:08 24 [facility] Health height percentile 2017-08-11 13:13:08 21 [facility] BMI (body mass 2017-08-11 13:13:08 37 % [facility] index) percentile Health Body Mass Index 2017-08-11 13:13:08 19.30 kg/m2 [facility] (Ratio) Health blood pressure, 2017-07-06 10:52:10 68 mm[Hg] [facility] diastolic Health blood pressure, 2017-07-06 10:52:10 105 mm[Hg] [facility] systolic [facility] pulse rate 2017-07-06 10:52:10 61 /min [facility] weight in kilograms 2017-07-06 10:52:10 48.5 kg L [facility] Health weight E&M 2017-07-06 10:52:10 106.70 [lb_av] [facility] height E&M 2017-07-06 10:52:10 62.99 [in_i] [facility] weight percentile 2017-07-06 10:52:10 29 [facility] height percentile 2017-07-06 10:52:10 36 [facility] BMI (body mass 2017-07-06 10:52:10 33 % [facility] index) percentile [facility] Body Mass Index 2017-07-06 10:52:10 18.98 kg/m2 [facility] (Ratio) Health Procedures Procedure Date / Time Performing Clinician Source Performed POCT MOLECULAR FLU 2022-06-29 16:00:00 Unknown, Attending [facility] POCT MOLECULAR STREP 2022-06-29 15:58:00 Unknown, Attending [facility] Production Line Operator 2022-06-17 15:31:24 Jeff Heck [facility] POCT MOLECULAR STREP 2022-04-15 15:40:00 [facility] ASSIGNMENT OF BENEFITS 2022-04-15 15:33:07 [facility] [place] [facility] ASSIGNMENT OF BENEFITS 2021-02-24 18:07:38 Doctor Unassigned, Un [facility] [place] [facility] POCT GRP A STREP 2021-01-21 16:13:00 Luciana Hammond [facility] (MOLECULAR) Medical Branch REFERRAL- 2020-11-28 05:01:00 Doctor Unassigned, [facility] REQUEST/RESPONSE [place] [facility] COVID-19 (MOLECULAR 2020-08-15 22:27:00 Layton Menchaca [facility] TESTING Medical Branch NUCLEIC ACID AMPLIFICATION) LAB ONLY COVID 2020-08-15 22:27:00 Layton Menchaca [place] [facility] [place] INTERPRETATION [facility] Branch POCT FLU A AND B 2020-08-15 00:00:00 Gisela Frey [facility] (MOLECULAR) Medical Branch Behavioral Health - 2020-07-17 09:29:21 Jeff Heck [facility] Testing Health POCT TEST 2020-02-21 20:30:00 [facility] - 2020-02-14 08:56:43 Jeff Heck [facility] Psychological Testing Health Production Line Operator 2019-09-25 10:08:38 Jeff Heck Com[facility] nity Health Production Line Operator 2018-07-31 03:44:47 Jeff Heck Commu nity [facility] Interactive Complexity 2017-07-11 16:44:55 Jeff Heck y Community Add-On - [id number] Health Diagnostic evaluation 2017-07-11 16:44:55 Jeff Heck Community with medical - [id number] Health Encounters Start End Encounter Admission Attending Care Care Encounter Source Date/Time Date/Time Type Type Clinicians Facility Department ID 2022-09-20 [facility] [id number] [facility] 10:49:00 [id number] [facility] 2022-09-11 [facility] [id number] [facility] 13:20:33 [id number] [facility] 2022-08-04 [facility] [id number] [facility] 14:35:09 [id number] [facility] 2022-07-16 [facility] [id number] Legacy 15:29:01 [facility] 2022-06-15 [facility] [id number] Legacy 13:37:04 [facility] 2022-06-14 [facility] [id number] [facility] 14:23:03 [facility] 2022-05-16 [facility] [id number] Legacy 20:03:03 [facility] 2022-05-10 [facility] [id number] [facility] 10:39:06 [facility] 2021-08-12 Outpatient [place], STLMLC STLMLC [id number] Common 14:39:26 Mary Carmen [facility] 2021-08-12 Outpatient [place], STLMLC STLMLC [id number] Common 13:47:07 Mary Carmen [id number] [facility] 2021-08-12 Outpatient [place], STLMLC STLMLC [id number] Common 13:27:03 Mary Carmen [id number] [facility] 2021-08-12 Outpatient [place], STLMLC STLMLC [id number] Common 11:36:12 Mary Carmen [id number] [facility] 2021-08-12 Outpatient [place], STLMLC STLMLC [id number] Common 11:33:11 Mary Carmen [id number] [facility] 2020-11-26 Outpatient JONN [facility] [id number] [place] 11:57:22 [facility] 2022-11-11 2022-11-11 Outpatient R UNKNOWN, [facility] [id number] Univers 09:20:00 09:20:00 ATTENDING [facility] 2022-10-12 2022-10-12 Outpatient R KATHLEEN, [facility] [id number] Univers 14:00:00 14:00:[address] [facility] 2022-08-25 2022-08-25 Outpatient R LEANDRA, [facility] [id number] Univers 09:30:00 09:30:[address] [facility] 2022-08-05 2022-08-05 In-person Maria R [facility] [place] unter/ [facility] 00:00:00 00:00:00 encounter [facility] [id number] [facility] [id number] [facility] 2022-08-05 2022-08-05 In-person Maria R [facility] Jeannette [place] 5418 [id number] Legacy 00:00:00 00:00:00 encounter [facility] [id number] C [facility] 2022-06-29 2022-06-29 Supervisor [facility], Ang - Db [facility] [id number] Univers 10:45:00 11:00:00 Visit Unknown, Attending HEALTH [id number] ity of Gisela Frey [id number] [place] STEVENSON?BLEA [id number] [facility] [place] [facility] OFFICE [facility] 2022-06-29 2022-06-29 Outpatient R TK [facility] [id number] Univers 09:40:00 10:38:08 GISELA moreno o f [facility] 2022-06-29 2022-06-29 Urgent Gisela Frey [facility] [id number] Univers 09:40:00 10:38:08 Care Unknown, Attending HEALTH [id number] ity [facility] [id number] Mahendra as STEVENSON?BLEA [id number] [facility] [address] [facility] OFFICE [facility] 2022-06-29 2022-06-29 Telephone [facility] [id number] Univers 00:00:00 00:00:00 Gisela HEALTH [id number] ity of [place] [id number] Mahendra as STEVENSON?BLEA [id number] [place] [facility] [place] [facility] OFFICE [facility] 2022-06-29 2022-06-29 Letter [facility] [id number] Univers 00:00:00 00:00:00 (Out) Gisela Harding HEALTH [id number] ity of [place] [id number] Mahendra as STEVENSON?BLEA [id number] [place] dical [address] MEDICAL OFFICE [facility] 2022-06-17 2022-06-17 In-person [facility] 00:00:00 00:00:00 encounter [facility] [id number] [facility] [id number] [facility] 2022-06-17 2022-06-17 In-person Maria R [facility] [place] 5418 [id number] Legacy 00:00:00 00:00:00 encounter [facility] [id number] C [facility] 2022-05-25 2022-05-25 [facility] [id number] Univers 14:00:00 15:12:05 PHILLY real [facility] 2022-05-25 2022-05-25 Office [facility] [id number] Univers 14:00:00 15:12:05 Visit Philly Pimentel 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 [id number] [id number] Mahendra as MATERNAL [id number] [facility] ical & CHILD [address] [place] [address] 2022-05-11 2022-05-16 In-person Maria R [facility] 5418 [id number] Legacy 00:00:00 00:00:00 encounter [facility] [id number] C [facility] 2022-05-11 2022-05-16 In-person [facility] R [facility] unter/ [facility] 00:00:00 00:00:00 encounter [facility] [id number] [facility] [id number] [facility] 2022-05-09 2022-05-09 Outpatient R TK [facility] [id number] Univers 15:00:00 15:40:42 GISELA real [facility] 2022-05-09 2022-05-09 Urgent Gisela Frey [facility] 1.2.840 .114 [id number] Univers 15:00:00 15:40:42 Care Unknown, Attending HEALTH 350.1.13.10 [facility] 4.2.7.2.686 Mahendra as STEVENSON?BLEA [phone] Ny diccharlette [address] OFFICE [facility] 2022-05-092022-05-09 Letter LAYTON Marinelli 1.2.840.114 [id number] Univers 00:00:00 00:00:00 (Out) Ese VALENTE 350.1.13.10 it y of [facility] 4.2.7.2.686 Mahendra as [phone] [facility] [address] 2022-05-09 2022-05-09 Letter [facility] 1.2.840.114 [id number] Univers 00:00:00 00:00:00 (Out) Gisela [facility] 350.1.13.10 ity of [place] 4.2.7.2.686 Mahendra as STEVENSON?BLEA [phone] [address] OFFICE [facility] 2022-04-15 2022-04-15 Urgent Yossi Wild [facility] 1.2.840.114 [id number] Univers 11:00:00 11:20:00 Care Orlando Whitmore [facility] 350.1.13.10 ity of [place] 4.2.7.2.686 Mahendra as STEVENSON?BLEA [phone] [address] OFFICE [facility] 2022-04-15 2022-04-15 Outpatient R JUNIOT [facility] [id number] Univers 11:00:00 11:10:15 YOSSI ity [facility] 2022-04-15 2022-04-15 Orders Doctor TRAYLOR 1.2.840.114 [id number] Univers 00:00:00 00:00:00 Only Unassigned, SIDRA 350.1.13.10 it[facility] 4.2.7.2.686 Mahendra as [phone] [address] 2022-03-30 2022-04-03 Office DARIO Heck [facility] Encounter/ Legacy 00:00:00 00:00:00 Visit Jeff [id number] Com isaac [id number] [facility] 2022-03-30 2022-04-03 In-person DARIO Heck [place] 5418 45-202 Legacy 00:00:00 00:00:00 encounter Jeff Behavioral 76117 [facility] 2022-03-02 2022-03-02 Office ANA Heck ANA Encounter/ Legacy 00:00:00 00:00:00 Visit Shetal [id number] Com isaac 689301 ty Health 2022-03-02 2022-03-02 In-person Maria R [place] [address] 45-202 Legacy 00:00:00 00:00:00 encounter Shetal Behavioral 91934 [facility] ty Health 2022-02-24 2022-02-24 Office Heck, [facility] Encounter/ Legacy 00:00:00 00:00:00 Visit Shetal [id number] Com isaac 508796 ty Health 2022-02-24 2022-02-24 [place] [address] 45 Legacy 00:00:00 00:00:00 encounter Shetal Behavioral 63363 [facility] ty Health 2021-12-29 2021-12-29 [facility]/ Legacy 00:00:00 00:00:00 Visit Shetal [id number] Com isaac 340629 ty Health 2021-12-29 2021-12-29 In-person Maria R, [place] [address] 45-202 Legacy 00:00:00 00:00:00 encounter Shetal Behavioral 19023 [facility] ty Health 2021-12-18 2021-12-18 OFFICE [facility] [id number] Co mmon 00:00:00 00:00:00 VISIT Spirit ESTAB PT - CHI LEVEL 2 [facility] 2021-11-17 2021-11-17 OFFICE [facility] [id number] Co mmon 00:00:00 00:00:00 VISIT EST Spir it PT LEVEL 3 - [facility]I [facility] 2021-10-20 2021-10-20 Office Heck, [facility] Encounter/ Legacy 00:00:00 00:00:00 Visit Shetal [id number] Com isaac 487378 ty Health 2021-10-20 2021-10-20 In-person Heck, [place] [address] 45-202 Legacy 00:00:00 00:00:00 encounter Shetal Behavioral 63773 [facility] ty Health 2021-07-21 2021-07-21 Office Maria R [facility] Encounter/ Legacy 00:00:00 00:00:00 Visit Jeff [id number] Com isaac 563354 ty Health 2021-07-21 2021-07-21 In-person Maria R [place] [address] 45-202 Legacy 00:00:00 00:00:00 encounter Jeff Behavioral 34297 [facility] ty Health 2021-05-19 2021-05-19 Office Maria R [facility] Encounter/ Legacy 00:00:00 00:00:00 Visit Jeff [id number] Com isaac 564564 ty Health 2021-05-19 2021-05-19 In-person Maria R, [place] 0251918 45- Legacy 00:00:00 00:00:00 encounter Sheyao Behavioral 48977 [facility] ty Health 2021-04-20 2021-04-20 Letter LAYTON Paniagua 1.2.840.114 [id number] Univers 00:00:00 00:00:00 (Out) Maddie VALETNE 350.1.13.10 it y of [facility] 4.2.7.2.686 Mahendra as [phone] [address] 2021-04-19 2021-04-19 Laboratory Only, Ang Db Test [facility] 1.2.8 40.114 [id number] Univers 12:12:14 12:27:14 Only Isa Wang [facility] 350.1.13.10 ity [facility] 4.2.7.2.686 Mahendra as Stevenson?Blea [phone] [address] Medical Office [facility] 2021-04-19 2021-04-19 Outpatient R KATHLEEN [facility] [id number] Univers 12:15:00 12:15:00 ISA ity [facility] 2021-04-07 2021-04-11 Office Maria R [facility] Encounter/ Legacy 00:00:00 00:00:00 Visit Jeff [id number] Com isaac 680577 ty Health 2021-04-07 2021-04-11 In-person Heck [facility] 5418 45-202 Legacy 00:00:00 00:00:00 encounter Jeff Behavioral 62588 [facility] ty Health 2021-03-17 2021-03-17 PREV VISIT STLMLC STLMLC [id number] Common 00:00:00 00:00:00 EST AGE Spirit 18-39 - [facility] 2021-02-25 2021-02-26 Office [facility] En[facility]/ Legacy 00:00:00 00:00:00 Visit Jeff [id number] Com isaac 320903 [facility] 2021-02-25 2021-02-26 In-person Maria R [facility] [place] 5418 45-202 Legacy 00:00:00 00:00:00 encounter Jeff Behavioral 61952 [facility] 2021-02-24 2021-02-24 Office [facility] 1.2.617.050 [id number] Univers 13:06:49 13:59:44 Visit Philly Pimentel 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 350.1.13.10 ity [facility] 4.2.7.2.686 Mahendra as MATERNAL [phone] Med ical & CHILD [address] [place] [address] 2021-02-24 2021-02-24 Outpatient R LEANDRA [facility] [id number] Univers 13:15:00 13:15:00 PHILLY real [facility] 2021-02-24 2021-02-24 Orders Doctor LAYTON 1.2.840.114 [id number] Univers 00:00:00 00:00:00 Only Unassigned, SIDRA 350.1.13.10 ity of [place] [facility] 4.2.7.2.686 Mahendra as [phone] [address] 2021-02-17 2021-02-17 Outpatient R JUNITO [facility] [id number] Univers 18:20:00 18:20:00 YOSSI ity [facility] 2021-02-17 2021-02-17 Laboratory Lab, Adc Fam Pob I [facility] 1.2. 840.114 [id number] Univers 17:55:38 18:15:[address] [facility] 350.1.13.10 [facility] 4.2.7.2.686 Mahendra as Professio [phone] Ny dic[address] Office Building One 2021-02-12 2021-02-12 Refill Delmeramy [facility] 1.2.111.688 [id number] Univers 00:00:00 00:00:00 Philly Pimentel 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 350.1.13.10 ity of [facility] 4.2.7.2.686 Mahendra as MATERNAL [phone] Med ical & CHILD [address] [place] [address] 2021-02-05 2021-02-05 Letter Lab, [facility] 1.2.840.114 [id number] Univers 00:00:00 00:00:00 (Out) Fam Pob I Health 350.1.13.10 ity of [place] 4.2.7.2.686 Mahendra as Professio [phone] [address] Office [facility] One 2021-02-03 2021-02-03 Laboratory Lab, [facility] Fam Pob I [facility] 1.2. 840.114 [id number] Univers 16:46:50 17:06:[address] [facility] 350.1.13.10 ity of [place] 4.2.7.2.686 Mahendra as Professio [phone] [address] One 2021-02-03 2021-02-03 Outpatient R JUNITO [facility] [id number] Univers 17:00:00 17:00:00 [facility] 2021-01-21 2021-01-25 Office Maria R [facility] Encounter/ Legacy 00:00:00 00:00:00 Visit Jeff [id number] [facility] isaac 076421 [facility] 2021-01-21 2021-01-25 In-person Maria R [facility] 5418 45-202 Legacy 00:00:00 00:00:00 encounter Jeff Hankins 88641 [facility] 2021-01-21 2021-01-21 Urgent Provider, [facility] 1.2.840.114 [id number] Univers 11:00:07 11:20:07 Care Luciana [facility] 350.1.13.10 ity of [place] 4.2.7.2.686 Mahendra as Professio [phone] [address] Building One 2021-01-21 2021-01-21 Outpatient R DENNISE [facility] [id number] Univers 11:00:00 11:00:00 LUCIANA vashti [facility] 2021-01-16 2021-01-16 Telephone [facility] 1.2.178.236 [id number] Univers 00:00:00 00:00:00 [facility] 350.1.13.10 ity of Surgical 4.2.7.2.686 Mahendra as Specialti [phone] Me dical es 370 [facility] 2021-01-16 2021-01-16 Letter [facility] 1.2.840.114 [id number] Univers 00:00:00 00:00:00 (Out) [facility] 350.1.13.10 ity of Surgical 4.2.7.2.686 Mahendra as Specialti [phone] Ny dical es 370 [facility] 2021-01-15 2021-01-15 Laboratory Lab, Adc Fam Pob I [facility] 1.2. 840.114 [id number] Univers 20:07:48 20:27:48 Only marin [facility] 350.1.13.10 ity [facility] 4.2.7.2.686 Mahendra as Professio [phone] Ny dical nal 044 [facility] One 2021-01-15 2021-01-15 Outpatient R RADHA VALENTE [facility] [id number] Univers 20:20:00 20:20:00 ity of [facility] 2021-01-02 2021-01-02 Office [facility] 1.2.840.114 [id number] Univers 10:41:42 10:56:42 Visit [facility] 350.1.13.10 it y of Surgical 4.2.7.2.686 Mahendra as Specialti [phone] Ny dical es 198 [facility] 2021-01-02 2021-01-02 Outpatient R FRANK [facility] [id number] Univers 10:45:00 10:45:00 GERALD moreno [facility] 2021-01-02 2021-01-02 Letter [facility] 1.2.840.114 [id number] Univers 00:00:00 00:00:00 (Out) [facility] 350.1.13.10 it y of Surgical 4.2.7.2.686 Mahendra as Specialti [phone] Ny dical es 198 [facility] 2021-01-01 2021-01-01 [facility] [id number] Univers 13:30:00 13:30:00 ROXANNE wilkinsvashti [facility] 2021-01-01 2021-01-01 Telephone [facility] 1.2.840.114 [id number] Univers 00:00:00 00:00:00 Roxanne Esquivel 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 350.1.13.10 it y of REGIONAL 4.2.7.2.686 Mahendra as MATERNAL [phone] Med ical & CHILD [address] [place] [address] 2020-12-23 2020-12-23 Office [facility] Encounter/ Legacy 00:00:00 00:00:00 Visit Jeff [id number] Com isaac [id number] [facility] 2020-12-23 2020-12-23 In-person Maria R [facility] 5418 45-202 Legacy 00:00:00 00:00:00 encounter Jeff Behavioral 03897 [facility] 2020-12-03 2020-12-03 Office [facility] 1.2.840.114 [id number] Univers 14:41:38 14:56:38 Visit [facility] 350.1.13.10 it y of Surgical 4.2.7.2.686 Mahendra as Specialti [phone] Ny dical es 198 [facility] 2020-12-03 2020-12-03 Outpatient R FRANK [facility] [id number] Univers 14:45:00 14:45:00 [facility] 2020-12-03 2020-12-03 Letter [facility] 1.2.840.114 [id number] Univers 00:00:00 00:00:00 (Out) [facility] 350.1.13.10 it y of Surgical 4.2.7.2.686 Mahendra as Specialti [phone] Ny dical es 198 [facility] 2020-11-28 2020-11-28 Orders Doctor LAYTON 1.2.840.114 [id number] Univers 00:00:00 00:00:00 Only Unassigned, SIDRA 350.1.13.10 ity of [place] [facility] 4.2.7.2.686 Mahendra as [phone] [facility] [address] 2020-11-26 2020-11-26 Office SHAHEED [place] 1.2.840.114 [id number] [place] 11:20:28 11:56:05 Visit Isa WHIPPLE 350.1.13.58 He alth [facility] 9.2.7.2.686 MULTI [phone] SPECIALTY 4 2020-11-26 2020-11-26 Office SHAHEED [place] 1.2.840.114 [id number] 11:20:28 11:56:05 Visit Isa WHIPPLE 350.1.13.58 [facility] 9.2.7.2.686 MULTI [phone] SPECIALTY 4 2020-11-26 2020-11-26 Outpatient STLMLC STLMLC [id number] Common 00:00:00 00:00:00 [facility] 2020-11-25 2020-11-25 Outpatient STLMLC STLMLC [id number] Common 00:00:00 00:00:00 [facility] 2020-11-20 2020-11-20 Outpatient STLMLC STLMLC [id number] Common 00:00:00 00:00:00 [facility] 2020-11-20 2020-11-20 Outpatient STLMLC STLMLC [id number] Common 00:00:00 00:00:00 [facility] 2020-11-20 2020-11-20 Outpatient STLMLC STLMLC [id number] Common 00:00:00 00:00:00 [facility] 2020-11-19 2020-11-19 Office DARIO Heck Encounter/ Legacy 00:00:00 00:00:00 Visit Jeff [id number] [facility] isaac [id number] [facility] 2020-11-19 2020-11-19 In-person Maria R [facility] [place] 5418 45-202 Legacy 00:00:00 00:00:00 encounter Shetal Behavioral 05601 [facility] ty Health 2020-10-21 2020-10-21 In-person Maria R [facility] Jeannette [place] 5418 45-202 Legacy 00:00:00 00:00:00 encounter Shetal Behavioral 46355 [facility] ty Health 2020-10-21 2020-10-21 Office Maria R [facility] Encounter/ Legacy 00:00:00 00:00:00 Visit Shetal [id number] Com isaac 997338 ty Health 2020-10-06 2020-10-06 Outpatient ARROYO, [facility] 7501 MHH[facility] 11:32:00 12:20:00 JOLLEY 2020-08-25 2020-08-25 Outpatient BEHAZIN, MHFB MHFB 7500 MHFB 07:46:00 10:40:00 ISA 2020-08-24 2020-08-24 Office Maria R [facility] Encounter/ Legacy 00:00:00 00:00:00 Visit Shetal [id number] Com isaac 905486 ty Health 2020-08-20 2020-08-24 In-person Maria R [facility] [place] 54[address] 45-202 Legacy 00:00:00 00:00:00 encounter Sheyao Behavioral 90258 [facility] ty Health 2020-08-20 2020-08-20 Office Maria R [facility] Encounter/ Legacy 00:00:00 00:00:00 Visit Shetal [id number] Com isaac 040697 ty Health 2020-08-15 2020-08-15 Urgent Provider, [facility] Urgent Care [facility] 1.2.840.114 [id number] Univers 16:21:48 17:52:11 Care Gisela Frey [facility] 350.1.13.10 [facility] 4.2.7.2.686 Mahendra as Kaushal [phone] [address] Office [facility] One 2020-08-15 2020-08-15 Outpatient R [facility] [id number] Univers 16:20:00 16:20:00 ity [facility] 2020-07-15 2020-07-17 In-person Jeff Heck [facility] [place] 887000-543 Legacy 00:00:00 00:00:00 encounter Anastasia Rodriguez Behavioral 06415 Blanka Rossi [facility] ty Health 2020-07-15 2020-07-15 Office Maria R, [facility] Encou nter/ Legacy 00:00:00 00:00:00 Visit Anastasia Rodriguez [id number] Blanka Daniellevashti Kristin [id number] Health 2020-05-13 2020-05-16 In-person [facility] 45-202 Legacy 00:00:00 00:00:00 encounter Jeff Behavioral 70722 [facility] ty Health 2020-05-13 2020-05-13 Office [facility] Encou nter/ Legacy 00:00:00 00:00:00 Visit Jimenez Bahena [id number] Communi 779649 ty Health 2020-05-13 2020-05-13 Office Maria R, [facility] Encounter/ Legacy 00:00:00 00:00:00 Visit Jeff [id number] [facility] isaac 817287 ty Health 2020-05-13 2020-05-13 Office Maria R, [facility] Encou nter/ Legacy 00:00:00 00:00:00 Visit Tasneem Martínez9 464270 Communi 322128 ty Health 2020-04-09 2020-04-09 Office Mauricio [facility] Encounter/ Legacy 00:00:00 00:00:00 Visit Tasneem [id number] C ommuni 977190 ty Health 2020-04-08 2020-04-08 Office Maria R, [facility] Encounter/ Legacy 00:00:00 00:00:00 Visit Jeff [id number] [facility] isaac 189617 ty Health 2020-04-08 2020-04-08 In-person Maria R [facility] 45-202 Legacy 00:00:00 00:00:00 encounter Jeff Behavioral 11279 [facility] ty Health 2020-03-29 2020-03-29 Office Heck, [facility] Encounter/ Legacy 00:00:00 00:00:00 Visit Jeff [id number] Com isaac 377921 [facility] 2020-03-17 2020-03-17 [facility] [id number] Common 08:52:00 08:52:00 [facility] 2020-03-10 2020-03-10 Office Maria [facility] Encounter/ Legacy 00:00:00 00:00:00 Visit Jeff [id number] Com isaac 801638 [facility] 2020-03-10 2020-03-10 In-person Maria R [facility] 5418 45-291 Legacy 00:00:00 00:00:00 encounter Jeff Behavioral 91056 [facility] 2020-03-04 2020-03-04 Office Maria R 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 Enc nter/ Legacy 00:00:00 00:00:00 Visit Linnea Espinoza [id number] 2587 Ese Palomares [id number] [facility] 2020-02-11 2020-02-14 In-person Maria R [facility] 451068-536 Legacy 00:00:00 00:00:00 encounter Adina Zamora Behavioral 007 27 Jacintoi Urevashti, [facility] ty Health 2020-02-11 2020-02-11 Office [facility]R, [facility] Enc nter/ Legacy 00:00:00 00:00:00 Visit Adina Zamora [id number] 99 Yulia Michelleca 749780 ty Health 2020-01-22 2020-01-22 Office Maria R, [facility] Encounter/ Legacy 00:00:00 00:00:00 Visit Shetal [id number] Com isaac 012225 ty Health 2019-12-18 2019-12-18 Office Heck, [facility] Encounter/ Legacy 00:00:00 00:00:00 Visit Shetal [id number] Com isaac 435265 ty Health 2019-12-18 2019-12-18 Office Heck, [facility] Encounter/ Legacy 00:00:00 00:00:00 Visit Shetal [id number] Com isaac 417114 ty Health 2019-12-18 2019-12-18 Office Kirti Cunha [facility] Encou nter/ Legacy 00:00:00 00:00:00 Visit Kell Espinoza [id number] 1445 Communi 694201 ty Health 2019-12-18 2019-12-18 Office Maria R, [facility] Encounter/ Legacy 00:00:00 00:00:00 Visit Shetal [id number] Com isaac 837823 ty Health 2019-12-18 2019-12-18 Office Maria R, [facility] Encounter/ Legacy 00:00:00 00:00:00 Visit Shetal [id number] Com isaac 497793 ty Health 2019-12-18 2019-12-18 In-person Maria R [facility] 5418 45-202 Legacy 00:00:00 00:00:00 encounter Jeff Behavioral 31290 C [facility] ty Health 2019-11-18 2019-11-18 Office Maria R, [facility] Encounter/ Legacy 00:00:00 00:00:00 Visit Jeff [id number] Com isaac 373005 ty Health 2019-10-25 2019-10-25 Office Marai R, [facility] Encounter/ Legacy 00:00:00 00:00:00 Visit Jeff [id number] Com isaac 355489 ty Health 2019-10-25 2019-10-25 In-person Heck, [facility] 5418 45-202 Legacy 00:00:00 00:00:00 encounter Jeff Hankins 10309 C [facility] ty Health 2019-10-08 2019-10-08 Office Jose Ramon, [facility] Encounter / Legacy 00:00:00 00:00:00 Visit Cheryl [id number] Com isaac 812603 ty Health 2019-09-26 2019-09-26 Office Heck, [facility] Encounter/ Legacy 00:00:00 00:00:00 Visit Sheyao [id number] Com isaac 256492 ty Health 2019-09-25 2019-09-25 Office Heck, [facility] Encounter/ Legacy 00:00:00 00:00:00 Visit Jeff [id number] Com isaac 236845 ty Health 2019-09-25 2019-09-25 Office Heck[facility] Encou nter/ Legacy 00:00:00 00:00:00 Visit Cheryl Albright 89063 44442 Communi Angelika, Joellen 569323 amanda Nicholson, [facility] 2019-09-25 2019-09-25 In-person Heck, [facility] 954334-170 Legacy 00:00:00 00:00:00 encounter Cehryl Albright Behavioral 57564 Communi Angelika, [facility] amanda Nicholson, [facility] 2019-09-24 2019-09-24 Office Heck, [facility] Encounter/ Legacy 00:00:00 00:00:00 Visit Jeff [id number] Com isaac 551834 ty Health 2019-08-16 2019-08-16 Office Heck, [facility] Encounter/ Legacy 00:00:00 00:00:00 Visit Shetal [id number] Com isaac 895393 ty Health 2019-07-31 2019-08-05 In-person Heck, [facility] 352117-000 Legacy 00:00:00 00:00:00 encounter Joellen Andrade Behavioral 82069 Communi Health ty Health 2019-07-31 2019-07-31 Office Heck, [facility] Encou nter/ Legacy 00:00:00 00:00:00 Visit Joellen Andrade 58473 59196 [facility] 999024 ty Health 2019-04-24 2019-04-24 Office Heck, [facility] Encounter/ Legacy 00:00:00 00:00:00 Visit Jeff [id number] Com isaac 894433 ty Health 2019-03-22 2019-03-27 In-person Heck, [facility] [phone] Legacy 00:00:00 00:00:00 encounter Joellen Andrade Behavioral 92590 [facility] Health 2019-03-22 2019-03-22 Office Heck, [facility] Encou nter/ Legacy 00:00:00 00:00:00 Visit Joellen Andrade 72842 70251 [facility] 386929 ty Health 2019-02-22 2019-02-22 Outpatient [facility] 26 35568 Common 11:00:00 11:00:00 [facility] 2019-01-15 2019-01-15 Office Heck, [facility] Encounter/ Legacy 00:00:00 00:00:00 Visit Laurental [id number] Com isaac 384514 ty Health 2019-01-12 2019-01-12 Office Maria R, [facility] Encounter/ Legacy 00:00:00 00:00:00 Visit Jeff [id number] Com isaac 766147 ty Health 2019-01-12 2019-01-12 Office Maria R, [facility] Encou nter/ Legacy 00:00:00 00:00:00 Visit Linnea Espinoza 038072 4105 [facility] Radha Huitron 495167 ty Health 2018-12-21 2018-12-21 Office Maria R, [facility] Encou nter/ Legacy 00:00:00 00:00:00 Visit Joellen Carney [id number] [facility] 906166 ty Health 2018-12-21 2018-12-21 In-person Heck, [facility] [place] [phone] Legacy 00:00:00 00:00:00 encounter Joellen Carney Behavioral 90 606 Replaced by [facility] 2018-10-03 2018-10-03 Office Maria R, Jeff [facility] Encou nter/ Legacy 00:00:00 00:00:00 Visit Tod Gusman [id number] Communi [id number] ty Health 2018-10-03 2018-10-03 [facility] [id number] Legacy 00:00:00 00:00:00 encounter Tod Gusman [facility] [phone] [facility] 2018-09-25 2018-09-25 Office Maria R [facility] Encounter/ Legacy 00:00:00 00:00:00 Visit Laurenyao [id number] Com isaac [id number] ty Health 2018-09-25 2018-09-25 Office Maria R [facility] Encounter/ Legacy 00:00:00 00:00:00 Visit Jeff [id number] Com isaac [id number] ty Health 2018-09-04 2018-09-04 [facility] [facility] [id number] Common 11:30:00 11:30:00 Womens Womens [facility] 2018-08-28 2018-08-28 Office Ganga, [facility] Encount er/ Legacy 00:00:00 00:00:00 Visit Adina [id number] Com isaac [id number] ty Health 2018-08-28 2018-08-28 [facility] Encou nter/ Legacy 00:00:00 00:00:00 Visit Joellen Carney [id number] Communi [id number] Health 2018-08-28 2018-08-28 In-person Jeff Heck [facility] [id number] Legacy 00:00:00 00:00:00 encounter Joellen Carney Behavioral 90 211 Communi Health ty Health 2018-08-16 2018-08-16 [facility] Legacy 00:00:00 00:00:00 Visit Cheryl [id number] Com isaac [id number] ty Health 2018-08-02 2018-08-02 [facility] / Legacy 00:00:00 00:00:00 Visit Cheryl [id number] Com isaac 339851 ty Health 2018-07-26 2018-07-31 In-person Maria R, Jeff PEREZ [place] [phone] Legacy 00:00:00 00:00:00 encounter Annette Justice 90 109 Cheryl Greco ty Alexis, [facility] 2018-07-26 2018-07-26 Office Uzma [facility] Encounter/ Legacy 00:00:00 00:00:00 Visit Tod [id number] Com isaac [id number] Health 2018-07-26 2018-07-26 Office Heck, [facility] Encou nter/ Legacy 00:00:00 00:00:00 Visit Annette Justice 1860 Cheryl Greco [id number] [facility], [facility] 2018-05-23 2018-05-23 Office Heck, [facility] Encounter/ Legacy 00:00:00 00:00:00 Visit Jeff [id number] Com isaac [id number] [facility] 2018-05-23 2018-05-23 Office Heck, [facility] Enc nter/ Legacy 00:00:00 00:00:00 Visit Tod Gusman [id number] [facility] Angelika, Joellen [id number] [facility] 2018-05-23 2018-05-23 In-person Heck, [facility] 537121-744 Legacy 00:00:00 00:00:00 encounter Tod Gusman Behavioral [phone] [facility] Angelika, [facility] 2018-05-01 2018-05-01 Office Zamora, [facility] Encounter/ Legacy 00:00:00 00:00:00 Visit Adina [id number] Com isaac [id number] Health 2018-05-01 2018-05-01 Office Zamora, [facility] Encounter/ Legacy 00:00:00 00:00:00 Visit Adina [id number] Com isaac [id number] Health 2018-04-30 2018-04-30 Office Heck, [facility] Encounter/ Legacy 00:00:00 00:00:00 Visit Jeff [id number] Com isaac [id number] Health 2018-03-21 2018-03-22 In-person Heck, [facility] [id number] Legacy 00:00:00 00:00:00 encounter Uzma Tod Behavioral 809 04 [facility] ty Health 2018-03-21 2018-03-21 Office [facility] Encou nter/ Legacy 00:00:00 00:00:00 Visit Uzma Tod [id number] Communi [id number] ty Health 2018-02-28 2018-03-04 In-person Heck, Jeff [facility] [place] [id number] Legacy 00:00:00 00:00:00 encounter Linnea Espinoza Behavioral 8 0814 [facility] ty Health 2018-02-28 2018-02-28 Office Maria R, [facility] Encounter/ Legacy 00:00:00 00:00:00 Visit Jeff [id number] Com isaac [id number] ty Health 2018-02-28 2018-02-28 Office [facility] Encou nter/ Legacy 00:00:00 00:00:00 Visit Linnea Espinoza [id number] Communi 341447 ty Health 2018-02-17 2018-02-17 Office Maria R, [facility] Encounter/ Legacy 00:00:00 00:00:00 Visit Jeff [id number] Com isaac 329347 ty Health 2018-02-17 2018-02-17 Office Maria R, [facility] Encounter/ Legacy 00:00:00 00:00:00 Visit Jeff [id number] Com isaac 956864 ty Health 2018-02-15 2018-02-15 Office Maria R, Jeff [facility] Encou nter/ Legacy 00:00:00 00:00:00 Visit Linnea Espinoza [id number] Communi 715954 ty Health 2018-02-13 2018-02-13 Office Maria R, [facility] Encounter/ Legacy 00:00:00 00:00:00 Visit Jeff [id number] Com isaac 690694 ty Health 2018-02-13 2018-02-13 Office Sera [facility] Encounter/ Legacy 00:00:00 00:00:00 Visit Adina [id number] Com isaac 454168 ty Health 2018-02-10 2018-02-10 Office Sera [facility] Encounter/ Legacy 00:00:00 00:00:00 Visit Adina [id number] Com isaac 607944 ty Health 2018-02-08 2018-02-08 Office Preeti [facility] Encounter/ Legacy 00:00:00 00:00:00 Visit Anastasiia Parker [id number] Co mmuni 357575 ty Health 2018-02-08 2018-02-08 Office [facility]/ Legacy 00:00:00 00:00:00 Visit Anastasiia Keith [id number] Co mmuni 944373 ty Health 2018-02-08 2018-02-08 Office Maria R [facility] Encou nter/ Legacy 00:00:00 00:00:00 Visit Radha Huitron [id number] [facility] Rahel Barrera [id number] [facility] 2018-02-08 2018-02-08 Office Anastasiia Álvarezi [facility] E ncounter/ Legacy 00:00:00 00:00:00 Visit Rahel Barrera [phone] [id number] [facility] [id number] [facility] 2018-01-17 2018-01-17 Office Heck [facility] Encou nter/ Legacy 00:00:00 00:00:00 Visit Tod Gusman [id number] [facility] Linnea Espinoza [id number] [facility] 2018-01-17 2018-01-17 In-person Maria R [facility] [place] [phone] Legacy 00:00:00 00:00:00 encounter Tod Gusman Behavioral 807 03 Linnea [facility] 2017-12-13 2017-12-14 In-person Heck, [facility] [place] [phone] Legacy 00:00:00 00:00:00 encounter Linnea Espinoza Behavioral 8 0529 [facility] Health 2017-12-13 2017-12-13 Office Heck, [facility] Encou nter/ Legacy 00:00:00 00:00:00 Visit Linnea Espinoza [id number] [facility] [id number] [facility] 2017-11-25 2017-11-25 Office Heck, [facility] Encou nter/ Legacy 00:00:00 00:00:00 Visit Kell Espinoza [id number] [facility] DeniseEktaFatimah 611073 ty Health 2017-11-01 2017-11-03 In-person Maria R, [facility] 935483-037 Legacy 00:00:00 00:00:00 encounter Gladis Quijano Behavioral 80 417 [facility] ty Health 2017-11-01 2017-11-01 Office Samm [facility] Encounter/ Legacy 00:00:00 00:00:00 Visit Gladis [id number] Com isaac 202541 ty Health 2017-11-01 2017-11-01 Office Heck, [facility] Enc nter/ Legacy 00:00:00 00:00:00 Visit Gladis Quijano [id number] Communi 382637 ty Health 2017-10-05 2017-10-05 Office Heck, [facility] Encounter/ Legacy 00:00:00 00:00:00 Visit Jeff [id number] Com isaac 561326 ty Health 2017-10-04 2017-10-04 Office Heck, [facility] Encounter/ Legacy 00:00:00 00:00:00 Visit Jeff [id number] Com isaac 600398 ty Health 2017-09-06 2017-09-07 In-person Heck, [facility] 478342-701 Legacy 00:00:00 00:00:00 encounter Linnea Espinoza Behavioral 8 0220 [facility] ty Health 2017-09-06 2017-09-06 Office Heck, [facility] Enc nter/ Legacy 00:00:00 00:00:00 Visit Linnea Espinoza [id number] Communi 187733 ty Health 2017-08-11 2017-08-14 In-person Maria R, [facility] 174881-711 Legacy 00:00:00 00:00:00 encounter Linnea Espinoza Behavioral 8 0125 Communi Health ty Health 2017-08-11 2017-08-11 Office Heck, [facility] Encou nter/ Legacy 00:00:00 00:00:00 Visit Linnea Espinoza [id number] Communi 408859 ty Health 2017-07-12 2017-07-12 Office Jeff Heck [facility] Encou nter/ Legacy 00:00:00 00:00:00 Visit Linnea Espinoza [id number] Communi [id number] [facility] 2017-07-06 2017-07-11 In-person Maria R [facility] [place] [id number] Legacy 00:00:00 00:00:00 encounter Linnea Espinoza Behavioral 7 1220 [facility] 2017-07-06 2017-07-06 Office Yadira [facility] Encounter/ Legacy 00:00:00 00:00:00 Visit Katarzyna [id number] Com isaac 787404 [facility] 2017-07-06 2017-07-06 Office [facility] Encou nter/ Legacy 00:00:00 00:00:00 Visit Linnea Espinoza [id number] 3020 Communi 237342 [facility] 2017-06-17 2017-06-17 Office Paulette [facility] Encounter/ Legacy 00:00:00 00:00:00 Visit Emily [id number] Com isaac 895425 [facility] Results Test Description Test Time Test Comments Results Result Comments Source POCT MOLECULAR FLU 2022-06-29 16:12:05 Test Item Value Reference Range Interpretation Comme nts POCT Molecular FluA (test code = 26705-7) Negative Negative POCT Molecular FluB (test code = 42554-2) Negative Negative Lab Interpretation (test code = 58892-4) Normal [facility] MOLECULAR [id number] 16:12:05 Test Item Value Reference Range Interpretation Comments POCT Molecular FluA (test code = Negative Negative 78492-5) POCT Molecular FluB (test code = Negative Negative 60356-3) Lab Interpretation (test code = Normal 87600-3) [facility] MOLECULAR [id number] 16:05:58 Test Item Value Reference Range Interpretation Comments POCT Molecular Strep (test code = Negative Negative 55152-6) Lab Interpretation (test code = Normal 78681-0) [facility] MOLECULAR [id number] 16:05:58 Test Item Value Reference Range Interpretation Comments POCT Molecular Strep (test code = Negative Negative 26106-0) Lab Interpretation (test code = Normal 31330-0) [facility] MOLECULAR [id number] 15:48:02 Test Item Value Reference Range Interpretation Comments POCT Molecular Strep (test code = Negative Negative 83509-4) Lab Interpretation (test code = Normal 85944-2) [facility] GRP A STREP (MOLECULAR)2021-01-21 16:13:00 Test Item Value Reference Range Interpretation Comments POCT GP A STREP (test negative Negative - code = 08068-1) Negative JOHANNY (test code = JOHANNY) accurate development and interpretation of all internal controls Lab Interpretation Normal (test code = 27852-2) [facility] [id number] 09:09:00 Test Item Value Reference Range Interpretation Comments blood glucose, random (test code = 77 mg/dL 65-99 2339-0) [facility], [facility]1983LDL cholesterol, [id number] 09:09:00 Test Item Value Reference Range Interpretation Comments LDL cholesterol, serum (test code = 83 mg/dL 0-109 2089-1) [facility], [facility]1983LAB ONLY COVID [id number] 22:55:00COVID DMT InterpretationInterpretation/Recommendations: Molecular NAAT Tests for [...] COVID-19 testing the patient has had at [facility], including molecular NAAT testing (more commonly known as PCR testing and Rapid ID Now testing) and antibody testing. It doesnot take into account any testing that a patient has had outside of the [facility] medical record. [facility] LABORATORY SERVICESCOVID ZhatjyqOMWG-MeE-1 NAAT (no units) ? ? Date ? Value ? 08/15/2020 ? Not Detected ? [facility] LABORATORY SERVICESUnC[facility] CenterCOVID-19 (MOLECULAR TESTING NUCLEIC ACID AMPLIFICATION)2020-08-17 02:07:00 Test Item Value Reference Range Interpretation Comments SARS-CoV-2 NAAT (test Not Detected Not Detected code = 97463-7) JOHANNY (test code = JOHANNY) [employer] Aptima SARS-CoV-2 Assay is a nucleic acid amplification test intended for the qualitative detection of RNA from SARS-CoV-2 from nasopharyngeal (BEDSPREAD CUTTER) specimens. ?It is used under Emergency Use [...] indicated. Lab Interpretation Normal (test code = 59544-3) [facility] ([facility])2020-08-15 23:04:00 Test Item Value Reference Range Interpretation Comments POCT INFLUENZA A (test code = 3840) neg Negative - Negativ e POCT INFLUENZA B (test code = 3841) neg Negative - Negativ e [facility] [id number] 20:30:00 Test Item Value Reference Range Interpretation Comments POCT PREG (test code = 1605) Negative On board controls acceptable with C Yes Line (test code = 3574) POCT PREG LOT # (test code = 3575) POCT PREG TEST DATE (test code = 3576) [facility] [id number] 20:30:00 Test Item Value Reference Range Interpretation Comments POCT PREG (test code = 1605) Negative On board controls acceptable with C Yes Line (test code = 3574) POCT PREG LOT # (test code = 3575) POCT PREG TEST DATE (test code = 3576) [facility] [id number] 20:30:00 Test Item Value Reference Range Interpretation Comments POCT PREG (test code = 1605) Negative On board controls acceptable with C Yes Line (test code = 3574) POCT PREG LOT # (test code = 3575) POCT PREG TEST DATE (test code = 3576) [facility] [id number] 20:30:00 Test Item Value Reference Range Interpretation Comments POCT PREG (test code = 1605) Negative On board controls acceptable with C Yes Line (test code = 3574) POCT PREG LOT # (test code = 3575) POCT PREG TEST DATE (test code = 3576) [facility]C, blood, as % of total [id number] 09:38:00 Test Item Value Reference Range Interpretation Comments hemoglobin A1C, blood, as % of total 5.2 % 4.8-5.6 hemoglobin (test code = 4548-4) [facility], [facility]–1983LDL cholesterol, [id number] 09:38:00 Test Item Value Reference Range Interpretation Comments LDL cholesterol, serum (test code = 99 mg/dL 0-109 2089-1) [facility] low density [id number] 09:38:00 Test Item Value Reference Range Interpretation Comments very low density lipoproteins (test 15 mg/dL 5-40 code = 2091-7) [facility], [facility]–1983HDL cholesterol, [id number] 09:38:00 Test Item Value Reference Range Interpretation Comments HDL cholesterol, serum (test code = 44 mg/dL >39 2084-9) [facility], [facility]–1983triglyceride, serum, [id number] 09:38:00 Test Item Value Reference Range Interpretation Comments triglyceride, serum, fasting (test 77 mg/dL 0-89 code = 2571-8) [facility], [facility]–1983cholesterol, [id number] 09:38:00 Test Item Value Reference Range Interpretation Comments cholesterol, serum (test code = 158 mg/dL 067-289 3023-3) [facility], [facility]1983alanine aminotransferase (SGPT), [id number] 09:38:00 Test Item Value Reference Range Interpretation Comments alanine aminotransferase (SGPT), serum 16 1/L 0-24 (test code = 1742-6) [facility], [facility]–1983aspartate aminotransferase (SGOT), [id number] 09:38:00 Test Item Value Reference Range Interpretation Comments aspartate aminotransferase (SGOT), 18 1/L 0-40 serum (test code = 1920-8) [facility], [facility]–1983alkaline phosphatase, [id number] 09:38:00 Test Item Value Reference Range Interpretation Comments alkaline phosphatase, serum (test code 73 1/L 45-101 = 1783-0) [facility], [facility]–1983bilirubin, serum, [id number] 09:38:00 Test Item Value Reference Range Interpretation Comments bilirubin, serum, total (test code 0.3 mg/dL 0.0-1.2 = 1975-2) [facility], [facility]–1983albumin/globulin ratio, [id number] 09:38:00 Test Item Value Reference Range Interpretation Comments albumin/globulin ratio, 1.7 (unknown unit) 1.2-2.2 serum (test code = 1759-0) [facility], [facility]–1983globulin, [id number] 09:38:00 Test Item Value Reference Range Interpretation Comments globulin, serum (test code 2.7 (unknown unit) 1.5-4.5 = 2336-6) [facility], [facility]–1983albumin, [id number] 09:38:00 Test Item Value Reference Range Interpretation Comments albumin, serum (test code = 1751-7) 4.5 g/dL 3.9-5.0 [facility] Healthprotein, total, [id number] 09:38:00 Test Item Value Reference Range Interpretation Comments protein, total, serum (test code = 7.2 g/dL 6.0-8.5 2885-2) [facility] Healthcalcium, [id number] 09:38:00 Test Item Value Reference Range Interpretation Comments calcium, serum (test code = 1999-8) 9.9 mg/dL 8.9-10.4 [facility], [facility]–1983carbon dioxide, venous [id number] 09:38:00 Test Item Value Reference Range Interpretation Comments carbon dioxide, venous blood (test 23 mmol/L code = 7-1) [facility] Healthchloride, [id number] 09:38:00 Test Item Value Reference Range Interpretation Comments chloride, serum (test code = 104 mmol/L 96-106 5-0) [facility] Healthpotassium, [id number] 09:38:00 Test Item Value Reference Range Interpretation Comments potassium, serum (test code = 5.1 mmol/L 3.5-5.2 2823-3) [facility], [facility]–1983sodium, [id number] 09:38:00 Test Item Value Reference Range Interpretation Comments sodium, serum (test code = 2951-2) 142 mmol/L 134-144 [facility], 1928–1983urea nitrogen/creatinine ratio, [id number] 09:38:00 Test Item Value Reference Range Interpretation Comments urea nitrogen/creatinine 11 (unknown unit) 10-22 ratio, serum (test code = 3097-3) [facility] Healthcreatinine, [id number] 09:38:00 Test Item Value Reference Range Interpretation Comments creatinine, serum (test code = 0.74 mg/dL 0.57-1.00 2160-0) [facility], [facility]–1983urea nitrogen, [id number] 09:38:00 Test Item Value Reference Range Interpretation Comments urea nitrogen, blood (test code = 8 mg/dL 5-18 3094-0) [facility], [facility]–1983blood glucose, [id number] 09:38:00 Test Item Value Reference Range Interpretation Comments blood glucose, random (test code = 80 mg/dL 65-99 2339-0) [facility], [facility]–1983immature granulocytes, percentage of total cells, blood 2019-09-25 09:38:00 Test Item Value Reference Range Interpretation Comments immature granulocytes, percentage of 0 % total cells, blood (test code = 43477-3) [facility] Healthbasophil count, [id number] 09:38:00 Test Item Value Reference Range Interpretation Comments basophil count, absolute (test 0.0 x10E3/uL 0.0-0.3 code = 93151-7) [facility] HealthEosinophil Absolute [id number] 09:38:00 Test Item Value Reference Range Interpretation Comments Eosinophil Absolute Count (test 0.0 X10E3/UL 0.0-0.4 code = 43312-8) [facility], [facility]–1983monocyte count, blood, [id number] 09:38:00 Test Item Value Reference Range Interpretation Comments monocyte count, blood, automated 0.6 X10E3/UL 0.1-0.9 (test code = 742-7) [facility], [facility]–1983lymphocyte count, blood, [id number] 09:38:00 Test Item Value Reference Range Interpretation Comments lymphocyte count, blood, 2.1 X10E3/UL 0.7-3.1 automated (test code = 731-0) [facility], [facility]–1983Absolute [id number] 09:38:00 Test Item Value Reference Range Interpretation Comments Absolute Neutrophils (test code 4.7 X10E3/UL 1.4-7.0 = 27361-7) [facility] Healthbasophils as percent of blood [id number] 09:38:00 Test Item Value Reference Range Interpretation Comments basophils as percent of blood 0 % leukocytes (test code = 707-0) [facility] Healtheosinophils as percent of blood [id number] 09:38:00 Test Item Value Reference Range Interpretation Comments eosinophils as percent of blood 1 % leukocytes (test code = 713-8) [facility] Healthmonocytes as percent of blood [id number] 09:38:00 Test Item Value Reference Range Interpretation Comments monocytes as percent of blood 8 % leukocytes (test code = 5905-5) [facility], [facility]–1983lymphocytes as percent of blood [id number] 09:38:00 Test Item Value Reference Range Interpretation Comments lymphocytes as percent of blood 28 % leukocytes (test code = 736-9) [facility], [facility]–1983neutrophils as percent of blood [id number] 09:38:00 Test Item Value Reference Range Interpretation Comments neutrophils as percent of blood 63 % leukocytes (test code = 770-8) [facility], 1928–1983platelet [id number] 09:38:00 Test Item Value Reference Range Interpretation Comments platelet count (test code = 335 X10E3/UL 150-450 777-3) [facility], [facility]–1983red blood cell distribution [id number] 09:38:00 Test Item Value Reference Range Interpretation Comments red blood cell distribution width 14.6 % 11.7-15.4 (test code = 788-0) [facility] corpuscular hemoglobin concentration, [id number] 09:38:00 Test Item Value Reference Range Interpretation Comments mean corpuscular hemoglobin 32.5 G/DL 31.5-35.7 concentration, RBC (test code = 786-4) [facility] corpuscular hemoglobin, [id number] 09:38:00 Test Item Value Reference Range Interpretation Comments mean corpuscular hemoglobin, RBC 30.1 pg 26.6-33.0 (test code = 785-6) [facility] corpuscular volume, [id number] 09:38:00 Test Item Value Reference Range Interpretation Comments mean corpuscular volume, RBC (test code 93 fL 79-97 = 787-2) [facility], [facility]–1983hematocrit, [id number] 09:38:00 Test Item Value Reference Range Interpretation Comments hematocrit, blood (test code = 4544-3) 38.5 % 34.0-46.6 [facility], [facility]–1983hemoglobin, [id number] 09:38:00 Test Item Value Reference Range Interpretation Comments hemoglobin, blood (test code = 12.5 g/dL 11.1-15.9 718-7) [facility], 1928–1983erythrocyte (RBC) [id number] 09:38:00 Test Item Value Reference Range Interpretation Comments erythrocyte (RBC) count (test 4.15 X10E6/UL 3.77-5.28 code = 789-8) [facility], 1928–1983leukocyte count, [id number] 09:38:00 Test Item Value Reference Range Interpretation Comments leukocyte count, blood (test 7.5 X10E3/UL 3.4-10.8 code = 6690-2) [facility], [facility]–1983alanine aminotransferase (SGPT), [id number] 10:10:00 Test Item Value Reference Range Interpretation Comments alanine aminotransferase (SGPT), serum 14 1/L 0-24 (test code = 1742-6) [facility], [facility]–1983aspartate aminotransferase (SGOT), [id number] 10:10:00 Test Item Value Reference Range Interpretation Comments aspartate aminotransferase (SGOT), 19 1/L 0-40 serum (test code = 1920-8) [facility], 1928–1983alkaline phosphatase, [id number] 10:10:00 Test Item Value Reference Range Interpretation Comments alkaline phosphatase, serum (test code 95 1/L 45-101 = 1783-0) [facility], [facility]–1983bilirubin, serum, [id number] 10:10:00 Test Item Value Reference Range Interpretation Comments bilirubin, serum, total (test code <0.2 mg/dL 0.0-1.2 = 1975-2) [facility], [facility]–1983albumin/globulin ratio, [id number] 10:10:00 Test Item Value Reference Range Interpretation Comments albumin/globulin ratio, 1.9 (unknown unit) 1.2-2.2 serum (test code = 1759-0) [facility] Healthglobulin, [id number] 10:10:00 Test Item Value Reference Range Interpretation Comments globulin, serum (test code 2.6 (unknown unit) 1.5-4.5 = 2336-6) [facility], [facility]–1983albumin, [id number] 10:10:00 Test Item Value Reference Range Interpretation Comments albumin, serum (test code = 1751-7) 5.0 g/dL 3.5-5.5 Formerly [facility], 1928–1983protein, total, [id number] 10:10:00 Test Item Value Reference Range Interpretation Comments protein, total, serum (test code = 7.6 g/dL 6.0-8.5 2885-2) [facility] Healthcalcium, [id number] 10:10:00 Test Item Value Reference Range Interpretation Comments calcium, serum (test code = 10.1 mg/dL 8.9-10.4 1999-8) Formerly [facility], 1928–1983carbon dioxide, venous [id number] 10:10:00 Test Item Value Reference Range Interpretation Comments carbon dioxide, venous blood (test 20 mmol/L 20-29 code = 2026-1) [facility] Healthchloride, [id number] 10:10:00 Test Item Value Reference Range Interpretation Comments chloride, serum (test code = 104 mmol/L 96-106 5-0) [facility] Healthpotassium, [id number] 10:10:00 Test Item Value Reference Range Interpretation Comments potassium, serum (test code = 4.9 mmol/L 3.5-5.2 2823-3) Formerly [facility], 1928–1983sodium, [id number] 10:10:00 Test Item Value Reference Range Interpretation Comments sodium, serum (test code = 2951-2) 141 mmol/L 134-144 [facility]ly [facility], 1928–1983urea nitrogen/creatinine ratio, [id number] 10:10:00 Test Item Value Reference Range Interpretation Comments urea nitrogen/creatinine 17 (unknown unit) 10-22 ratio, serum (test code = 3097-3) [facility]ly [facility], 1928–1983creatinine, [id number] 10:10:00 Test Item Value Reference Range Interpretation Comments creatinine, serum (test code = 0.82 mg/dL 0.57-1.00 2160-0) [facility], 1928–1983urea nitrogen, [id number] 10:10:00 Test Item Value Reference Range Interpretation Comments urea nitrogen, blood (test code = 14 mg/dL 5-18 3094-0) [facility], 1928–1983blood glucose, [id number] 10:10:00 Test Item Value Reference Range Interpretation Comments blood glucose, random (test code = 84 mg/dL 65-99 2339-0) [facility], 1928–1983immature granulocytes, percentage of total cells, blood 2019-01-12 10:10:00 Test Item Value Reference Range Interpretation Comments immature granulocytes, percentage of 0 % total cells, blood (test code = 48916-7) [facility] count, [id number] 10:10:00 Test Item Value Reference Range Interpretation Comments basophil count, absolute (test 0.0 x10E3/uL 0.0-0.3 code = 41244-5) [facility] HealthEosinophil Absolute [id number] 10:10:00 Test Item Value Reference Range Interpretation Comments Eosinophil Absolute Count (test 0.1 X10E3/UL 0.0-0.4 code = 80883-9) [facility] Healthmonocyte count, blood, [id number] 10:10:00 Test Item Value Reference Range Interpretation Comments monocyte count, blood, automated 0.4 X10E3/UL 0.1-0.9 (test code = 742-7) [facility], 1928–1983lymphocyte count, blood, [id number] 10:10:00 Test Item Value Reference Range Interpretation Comments lymphocyte count, blood, 2.0 X10E3/UL 0.7-3.1 automated (test code = 731-0) [facility]ly [facility], 1928–1983Absolute [id number] 10:10:00 Test Item Value Reference Range Interpretation Comments Absolute Neutrophils (test code 2.9 X10E3/UL 1.4-7.0 = 61617-1) [facility] Healthbasophils as percent of blood [id number] 10:10:00 Test Item Value Reference Range Interpretation Comments basophils as percent of blood 0 % leukocytes (test code = 707-0) [facility] Healtheosinophils as percent of blood [id number] 10:10:00 Test Item Value Reference Range Interpretation Comments eosinophils as percent of blood 1 % leukocytes (test code = 713-8) [facility] Healthmonocytes as percent of blood [id number] 10:10:00 Test Item Value Reference Range Interpretation Comments monocytes as percent of blood 8 % leukocytes (test code = 5905-5) [facility]ly [facility], 1928–1983lymphocytes as percent of blood [id number] 10:10:00 Test Item Value Reference Range Interpretation Comments lymphocytes as percent of blood 37 % leukocytes (test code = 736-9) [facility]ly [facility], 1928–1983neutrophils as percent of blood [id number] 10:10:00 Test Item Value Reference Range Interpretation Comments neutrophils as percent of blood 54 % leukocytes (test code = 770-8) [facility], 1928–1983platelet [id number] 10:10:00 Test Item Value Reference Range Interpretation Comments platelet count (test code = 357 X10E3/UL 150-450 777-3) [facility], 1928–1983red blood cell distribution [id number] 10:10:00 Test Item Value Reference Range Interpretation Comments red blood cell distribution width 16.4 % 12.3-15.4 H (test code = 788-0) [facility] corpuscular hemoglobin concentration, [id number] 10:10:00 Test Item Value Reference Range Interpretation Comments mean corpuscular hemoglobin 32.2 G/DL 31.5-35.7 concentration, RBC (test code = 786-4) [facility] corpuscular hemoglobin, [id number] 10:10:00 Test Item Value Reference Range Interpretation Comments mean corpuscular hemoglobin, RBC 27.9 pg 26.6-33.0 (test code = 785-6) [facility] corpuscular volume, [id number] 10:10:00 Test Item Value Reference Range Interpretation Comments mean corpuscular volume, RBC (test code 86 fL 79-97 = 787-2) [facility], 1928–1983hematocrit, [id number] 10:10:00 Test Item Value Reference Range Interpretation Comments hematocrit, blood (test code = 4544-3) 36.9 % 34.0-46.6 [facility], 1928–1983hemoglobin, [id number] 10:10:00 Test Item Value Reference Range Interpretation Comments hemoglobin, blood (test code = 11.9 g/dL 11.1-15.9 718-7) [facility], 1928–1983erythrocyte (RBC) [id number] 10:10:00 Test Item Value Reference Range Interpretation Comments erythrocyte (RBC) count (test 4.27 X10E6/UL 3.77-5.28 code = 789-8) [facility], 1928–1983leukocyte count, [id number] 10:10:00 Test Item Value Reference Range Interpretation Comments leukocyte count, blood (test 5.4 X10E3/UL 3.4-10.8 code = 6690-2) [facility], 1928–1983
[2023-02-10 18:17] LABS: Absolute Lymphocytes (CBC) 1.5 K/uL (0.7-4.9); Hematocrit 39.4 % (36.0-45.0); Lymphocytes % 21.8 % (15.3-44.8); MCV 96.7 fL (80-100); MPV 7.6 fL (7.6-11.3); RBC Red Blood Cell Count 4.07 M/uL (3.86-4.86)
[2023-02-10] MEDS ORDERED: KETOROLAC 30 MG/ML INJ ONE (18:18)
[2023-02-10] MEDS ORDERED: MORPHINE 4 MG/ML SYR ONE (18:18)
[2023-02-10] MEDS ORDERED: ONDANSETRON 4 MG/2 ML VIAL ONE (18:18)
[2023-02-10] MEDS ORDERED: NA CHLORIDE 0.9% 1,000 ML ONE (18:18)
[2023-02-10 18:42] LABS: Albumin 3.6 g/dL (3.4-5.0); Bilirubin Total 0.3 mg/dL (0.2-1.0); Potassium 3.8 mEq/L (3.5-5.1); Protein, Total 7.4 g/dL (6.4-8.2)
[2023-02-10 18:58] LABS: Specific Gravity 1.014 (1.005-1.030)
[2023-02-10 19:08] LABS: Specific Gravity 1.013 (1.005-1.030); Urine Bacteria None Seen /HPF (<20); Urine Bilirubin NEGATIVE (Negative); Urine Blood Negative (Negative); Urine Clarity Extremely Turbid (Clear); Urine Color Colorless (Yellow); Urine Glucose NEGATIVE (Negative); Urine Protein NEGATIVE (Negative); Urine RBC <5 /HPF (None Seen); Urine Urobilinogen Normal (Normal); Urine pH 8.5 (5.0-7.0)
--- NOTE | 2023-02-10 19:33 | RAD REPORT ---
EXAM DESCRIPTION: CTStone Protocol - 02/10/2023 7:17 pm CLINICAL HISTORY: FLANK PAIN COMPARISON: Abdomen Pelvis W Contrast dated 07/20/2017 TECHNIQUE: CT of the abdomen and pelvis was performed. All CT scans are performed using dose optimization technique as appropriate and may include automated exposure control or mA/KV adjustment according to patient size. FINDINGS: Lower chest: No acute abnormality. Liver: No acute abnormality or suspicious lesions. Biliary: No biliary ductal dilatation. Stomach: No significant focal abnormality. Duodenum: No significant focal abnormality. Pancreas: No significant abnormality. Spleen: No significant abnormality. Adrenal: No suspicious lesions. Kidney/ureter: No hydronephrosis. Bilateral nephrolithiasis. Retroperitoneum: No retroperitoneal adenopathy. Vascular: No aneurysm. Bowel: No significant focal abnormality. Normal appendix. Peritoneum: No ascites or free air. Bladder: Circumferential thickened bladder. Reproductive: No adnexal masses. Bones: No acute fracture. Other: n/a IMPRESSION: Limited by lack of IV contrast and intra-abdominal fat. Nonobstructive bilateral nephrol ithiasis. No ureteral calculi. Bladder wall thickening present which could reflect cystitis. Normal a ppendix.
[2023-02-10] MEDS ORDERED: NA CHLORIDE 0.9% 50 ML ONE (20:12)
[2023-02-10] MEDS ORDERED: CEFTRIAXONE 1000 MG/VIAL ONE (20:12)
--- NOTE | 2023-02-10 20:25 | ER ---
Nurse's Notes [facility] Name: Stefania Ovalles Age: 23 yrs Sex: Female : 2000 Arrival Date: 02/10/2023 Time: 17:23 Bed 20 Private MD: Diagnosis: Acute cystitis;Calculus of kidney Presentation: 02/10 17:34 Chief complaint: Patient states: right flank pain that began today, also reports aa5 nausea. Coronavirus screen: nausea. Ebola Screen: Patient denies travel to an Ebola-affected area in the 21 days before illness onset. Initial Sepsis Screen: Does the patient meet any 2 criteria? No. Patient's initial sepsis screen is negative. Does the patient have a suspected source of infection? No. Patient's initial sepsis screen is negative. Risk Assessment: Do you want to hurt yourself or someone else? Patient reports no desire to harm self or others. Onset of symptoms was February 10, 2023. 17:34 Method Of Arrival: Ambulatory aa5 17:34 Acuity: ANNETTE 2 aa5 Triage Assessment: 17:34 General: Appears uncomfortable, Behavior is crying. Pain: Complains of pain in right aa5 flank. Respiratory: Airway is patent Respiratory effort is even, unlabored, Respiratory pattern is regular, symmetrical. Derm: Skin is pink, warm \T\ dry. 17:34 Neuro: Level of Consciousness is awake, alert, obeys commands, Oriented to person, aa5 place, time, situation. IRRIGATOR OVERHEAD: 17:34 LMP 01/15/2023 aa5 Historical: - Allergies: 17:34 Pineapple; aa5 17:34 ants; aa5 - PMHx: 17:34 Anxiety; Depression; GERD; Kidney stone; aa5 - PSHx: 17:34 None; aa5 - Immunization history:: Adult Immunizations up to date. - Social history:: Smoking status: Patient reports the use of cigarette tobacco products, denies chronic smoking, but will smoke occasionally. Screenin:09 [facility] ED Fall Risk Assessment (Adult) History of falling in the last 3 months, db including since admission No falls in past 3 months (0 pts) Confusion or Disorientation No (0 pts) Intoxicated or Sedated No (0 pts) Impaired Gait No (0 pts) Mobility Assist Device Used No (0 pt) Altered Elimination No (0 pt) Score/Fall Risk Level 0 - 2 = Low Risk Oriented to surroundings, Maintained a safe environment. Abuse screen: Denies threats or abuse. Denies injuries from another. Nutritional screening: No deficits noted. Tuberculosis screening: No symptoms or risk factors identified. Assessment: 18:30 Reassessment: Patient appears in no apparent distress at this time. Patient and/or db family updated on plan of care and expected duration. Pain level reassessed. Patient is alert, oriented x 3, equal unlabored respirations, skin warm/dry/pink. General: Appears in no apparent distress. uncomfortable, Behavior is calm, cooperative. Pain: Complains of pain in back. Neuro: Level of Consciousness is awake, alert, obeys commands, Oriented to person, place, time, situation, Speech is normal. 19:20 General: Appears comfortable, Behavior is calm, cooperative. Pain: Complains of pain in ha1 right lower quadrant Pain does not radiate. Pain currently is 3 out of 10 on a pain scale. Quality of pain is described as pressure, Pain began gradually. Cardiovascular: Patient's skin is warm and dry. Respiratory: Airway is patent Respiratory effort is even, unlabored, Respiratory pattern is regular, symmetrical. GI: Abdomen is flat, Bowel sounds present X 4 quads. Reports lower abdominal pain. Musculoskeletal: Circulation, motion, and sensation intact. 20:33 Reassessment: Patient appears in no apparent distress at this time. Patient is alert, kl oriented x 3, equal unlabored respirations, skin warm/dry/pink. Patient denies pain at this time. Patient states feeling better. Patient states symptoms have improved. Vital Signs: 17:34 BP 131 / 95; Pulse 85; Resp 18 S; Temp 98(TE); Pulse Ox 100% on R/A; Weight 54.43 kg aa5 (R); Height 5 ft. 4 in. (R); Pain 9/10; 18:30 BP 108 / 68; Pulse 58; Resp 16; Pulse Ox 99% on R/A; db 19:20 BP 111 / 71; Pulse 60; Resp 18 S; Pulse Ox 99% on R/A; ha1 20:32 BP 109 / 69; Pulse 67; Resp 18; Pulse Ox 100% on R/A; Pain 0/10; kl 17:34 Body Mass Index 20.60 (54.43 kg, 162.56 cm) aa5 17:34 Pain Scale: Adult aa5 20:32 Pain Scale: Adult ED Course: 17:33 Patient arrived in ED. aa5 17:33 Arm band placed on. aa5 17:34 Elvin Maki PA is PHCP. cp 17:34 Elizabeth Jimenez MD is Attending Physician. cp 17:35 Triage completed. aa5 17:47 Radiology exam delayed due to test not completed at this time. nj 18:06 Shannan Levin, FLORI is Primary Nurse. db 18:20 Radiology exam delayed due to test not completed at this time. eh4 18:27 Inserted saline lock: 20 gauge in left antecubital area, using aseptic technique. aw1 18:27 Initial lab(s) drawn, by me, sent to lab. aw1 18:31 Urine collected: clean catch specimen, clear. aw1 18:36 Radiology exam delayed due to test not completed at this time. eh4 19:19 CT Stone Protocol In Process Unspecified. EDMS 20:23 Nghia Baron MD is Referral Physician. cp 20:33 No provider procedures requiring assistance completed. IV discontinued, intact, kl bleeding controlled, No redness/swelling at site. Pressure dressing applied. Administered Medications: 18:18 Drug: NS 0.9% IV 1000 ml Route: IV; Rate: 1 bolus; Site: right antecubital; db 18:20 Drug: TORadol - Ketorolac IVP 15 mg Route: IVP; Site: right antecubital; db 18:20 Drug: Ondansetron IVP 4 mg Route: IVP; Site: right antecubital; db 18:20 Drug: morphine IVP or IV 4 mg Route: IVP; Infused Over: 4 mins; Site: right antecubital;db 20:12 Drug: Rocephin IV 1 grams Route: IV; Rate: calculated rate; Site: left antecubital; ha1 Outcome: 20:24 Discharge ordered by . cp 20:33 Discharged to home ambulatory. kl 20:33 Condition: improved 20:33 Discharge instructions given to patient, Instructed on discharge instructions, follow up and referral plans. medication usage, Demonstrated understanding of instructions, follow-up care, medications, Prescriptions given X 2. 20:34 Patient left the ED. kl 20:37 Patient left the ED. kl Signatures: Dispatcher [employer] EDMS Gisela Suarez RN RN Beth Iverson RN RN aa5 Elvin Maki PA PA cp Jordan, Nathan nj Ayala, Heidy, RN RN ha1 Jaime De Guzman 4 Shannan Levin RN RN Ivania Post aw1 Corrections: (The following items were deleted from the chart) 17:34 17:34 Allergies: No Known Allergies; aa5 aa5
--- NOTE | 2023-02-10 20:26 | EDPHYS ---
Physician Documentation [facility] Name: Stefania Ovalles Age: 23 yrs Sex: Female : 2000 Arrival Date: 02/10/2023 Time: 17:23 Bed 20 Private MD: ED Physician Elizabeth Jimenez HPI: 02/10 17:45 This 23 yrs old Female presents to ER via Ambulatory with complaints of Flank Pain. cp 17:45 The patient complains of pain in the right flank. Onset: The symptoms/episode cp began/occurred today. Associated signs and symptoms: Pertinent positives: nausea. The patient has experienced similar episodes in the past, a few times, today's symptoms are similar, to when the patient was apparently diagnosed with kidney stone. 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 - Social history:: Smoking status: Patient reports the use of cigarette tobacco products, denies chronic smoking, but will smoke occasionally. ROS: 17:50 Constitutional: Negative for body aches, chills, fever, poor PO intake. cp 17:50 Eyes: Negative for injury, pain, redness, and discharge. cp 17:50 Cardiovascular: Negative for chest pain. 17:50 Respiratory: Negative for cough, shortness of breath, wheezing. 17:50 Abdomen/GI: Positive for abdominal pain, nausea. 17:50 Back: Positive for flank pain, on the right. 17:50 Skin: Negative for cellulitis, rash. 17:50 Neuro: Negative for altered mental status, dizziness, headache, numbness, weakness. 17:50 All other systems are negative. Exam: 17:55 Constitutional: The patient appears in no acute distress, alert, awake, non-toxic, well cp developed, well nourished, uncomfortable. 17:55 Head/Face: Normocephalic, atraumatic. cp 17:55 Eyes: Periorbital structures: appear normal, Conjunctiva: normal, no exudate, no injection, Sclera: no appreciated abnormality, Lids and lashes: appear normal, bilaterally. 17:55 ENT: External ear(s): are unremarkable, Nose: is normal, Mouth: Lips: moist, Oral mucosa: pink and intact, moist, Posterior pharynx: is normal, airway is patent, no erythema, no exudate. 17:55 Neck: ROM/movement: is normal, is supple, without pain, no range of motions limitations. 17:55 Chest/axilla: Inspection: normal. 17:55 Cardiovascular: Rate: normal. 17:55 Respiratory: the patient does not display signs of respiratory distress, Respirations: normal, no use of accessory muscles, no retractions, labored breathing, is not present, Breath sounds: are clear throughout, no decreased breath sounds, no stridor, no wheezing. 17:55 Abdomen/GI: Inspection: abdomen appears normal, Bowel sounds: active, all quadrants, Palpation: soft, in all quadrants, moderate abdominal tenderness, in the posterior aspect of right lateral abdomen, anterior aspect of right lateral abdomen, right upper quadrant and right lower quadrant, rebound tenderness, is not appreciated, involuntary guarding, is not appreciated. 17:55 : CVA tenderness, on the right. Vital Signs: 17:34 BP 131 / 95; Pulse 85; Resp 18 S; Temp 98(TE); Pulse Ox 100% on R/A; Weight 54.43 kg aa5 (R); Height 5 ft. 4 in. (R); Pain 9/10; 18:30 BP 108 / 68; Pulse 58; Resp 16; Pulse Ox 99% on R/A; db 19:20 BP 111 / 71; Pulse 60; Resp 18 S; Pulse Ox 99% on R/A; ha1 20:32 BP 109 / 69; Pulse 67; Resp 18; Pulse Ox 100% on R/A; Pain 0/10; kl 17:34 Body Mass Index 20.60 (54.43 kg, 162.56 cm) aa5 17:34 Pain Scale: Adult aa5 20:32 Pain Scale: Adult kl MDM: 17:36 Patient medically screened. 18:00 Differential diagnosis: nephrolithiasis, pyelonephritis, UTI, diverticulitis, cp cholecystitis. 20:23 Data reviewed: vital signs, nurses notes, lab test result(s), radiologic studies, CT cp scan. 20:23 I considered the following discharge prescriptions or medication management in the cp emergency department Medications were administered in the Emergency Department. See MAR. Counseling: I had a detailed discussion with the patient and/or guardian regarding: the historical points, exam findings, and any diagnostic results supporting the discharge/admit diagnosis, lab results, radiology results, to return to the emergency department if symptoms worsen or persist or if there are any questions or concerns that arise at home. Response to treatment: the patient's symptoms have markedly improved after treatment, and as a result, I will discharge patient. 02/10 17:43 Order name: CBC with Diff; Complete Time: 19:11 02/10 17:43 Order name: CMP; Complete Time: 19:11 02/10 19:11 Interpretation: Normal except: GLUC 109. 02/10 17:43 Order name: Lipase; Complete Time: 19:11 02/10 17:43 Order name: Test, Urine; Complete Time: 19:11 02/10 17:43 Order name: Urinalysis w/ reflexes; Complete Time: 19:11 02/10 19:11 Interpretation: Normal except: [facility] Extremely Turbid; UPH 8.5; ARMANI Cx 2+. 02/10 17:43 Order name: CT Stone Protocol; Complete Time: 19:52 02/10 17:43 Order name: IV Saline Lock; Complete Time: 18:27 02/10 17:43 Order name: Labs collected and sent; Complete Time: 18:27 cp Administered Medications: 18:18 Drug: NS 0.9% IV 1000 ml Route: IV; Rate: 1 bolus; Site: right antecubital; db 18:20 Drug: TORadol - Ketorolac IVP 15 mg Route: IVP; Site: right antecubital; db 18:20 Drug: Ondansetron IVP 4 mg Route: IVP; Site: right antecubital; db 18:20 Drug: morphine IVP or IV 4 mg Route: IVP; Infused Over: 4 mins; Site: right antecubital;db 20:12 Drug: Rocephin IV 1 grams Route: IV; Rate: calculated rate; Site: left antecubital; ha1 Disposition Summary: 02/10/23 20:24 Discharge Ordered Location: Home cp Problem: new cp Symptoms: have improved cp Condition: Stable cp Diagnosis - Acute cystitis cp - Calculus of kidney cp Followup: cp - With: Nghia Baron MD - When: 1 week - Reason: Recheck today's complaints Discharge Instructions: - Discharge Summary Sheet cp - Kidney Stones cp - Interstitial Cystitis cp Forms: - Work release form kl - Medication Reconciliation Form cp - Thank You Letter cp - Antibiotic Education cp - Prescription Opioid Use cp - Patient Portal Instructions cp Prescriptions: - Diclofenac Sodium 75 mg Oral Tablet Sustained Release - take 1 tablet by ORAL route 2 times per day; 30 tablet; Refills: 0, Product cp Selection Permitted - Macrobid 100 mg Oral Capsule - take 1 capsule by ORAL route every 12 hours for 7 days; 14 capsule; Refills: 0, cp Product Selection Permitted Signatures: Dispatcher [employer] Beth Dodge RN RN aa5 Elvin Maki PA PA cp Lakshmi Cates RN RN ha1 Shannan Levin RN RN db Corrections: (The following items were deleted from the chart) 17:34 17:34 Allergies: No Known Allergies; aa5 aa5
[2023-02-10 21:18] VITALS: TEMP 98
[2023-02-10 21:25] VITALS: BP 109/69; O2SAT 100
== END 2023-02-10 20:37 | disposition home or self-care (01) ==
LOC: ER 17:23
DX: N30.00 Acute cystitis without hematuria (principal); N20.0 Calculus of kidney
CPT/HCPCS: 36415; 74176; 76377; 80053; 81001; 81025; 83690; 85025; 99284; J0696; J2405; J7030